=== PATIENT | male | born 1975 | race Caucasian/White ===

== ENCOUNTER 2019-05-19 15:16 | Outpatient (CLI) | payer BC, SELFPAY ==
--- NOTE | ~2019-05-19 | US_ITS ---
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 COMPARISON: Ultrasound dated 04/03/2006 FINDINGS: The right thyroid lobe measures 3.5 x 1.1 x 0.5 cm. The left thyroid lobe measures 2 x 1.3 x 1 cm. There is normal echotexture and echogenicity throughout the thyroid gland. No discrete nodul es identified. Normal vascular flow is present. IMPRESSION: 1. Atrophic thyroid gland. No discrete mass. Reviewed, dictated and finalized at location A. CIATE PROFESSOR OF COUNSELING
== END 2019-05-19 15:17 | disposition home or self-care (01) ==
LOC: ANHIMG 15:24
PROVIDERS: PCP Physician Assistant; Visit Provider Physician Assistant
DX: E03.9 Hypothyroidism, unspecified (principal)
CPT/HCPCS: 76536

== ENCOUNTER 2022-03-05 17:41 | Emergency (ER) | payer OTHER, SELFPAY ==
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
--- NOTE | ~2022-03-05 | XR_ITS ---
EXAMINATION: XR chest 2V Exam Date/Time: 03/05/2022 20:17 SHIRT CLEANER HISTORY: chest wall pain Comparison: 09/19/2017. RESULT: Lines, tubes, and devices: Cholecystectomy clips. Lungs and pleura: Clear. Cardiomediastinal silhouette: Stable. Other: No acute osseous or upper abdominal finding. IMPRESSION: No acute cardiopulmonary process. Reviewed, dictated and finalized at location K. T CLEANER
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
[2022-03-05 18:25] VITALS: BP 135/100; PULSE 106; RESP 16; TEMP 36.7; O2SAT 98
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
[2022-03-05] MEDS: KETOROLAC 30 MG/ML VIAL (*BKC) IM (21:22)
[2022-03-05] MEDS: CYCLOBENZAPRINE HCL 10 MG TABLET PO (21:23)
[2022-03-05] MEDS: HYDROcodone/acetaminophen (*CRX) 5-325 MG TABLET 1 TAB PO (21:23)
== END 2022-03-05 22:15 | disposition home or self-care (01) ==
PROVIDERS: Emergency Provider Emergency Medicine; PCP Physician Assistant
DX: S19.9XXA Unspecified injury of neck, initial encounter (principal); S89.92XA Unspecified injury of left lower leg, initial encounter; S89.91XA Unspecified injury of right lower leg, initial encounter; S49.92XA Unspecified injury of left shoulder and upper arm, initial encounter; V49.40XA Driver injured in collision with unspecified motor vehicles in traffic accident, initial encounter
CPT/HCPCS: 70450; 71046; 72125; 73030; 73564; 96372; 99284; A9270; J1885

== ENCOUNTER 2022-07-12 10:30 | Emergency (ER) | payer BC, SELFPAY ==
[2022-07-12 10:50] VITALS: BP 146/91; PULSE 82; RESP 18; TEMP 36.4; O2SAT 100
--- NOTE | 2022-07-12 10:55 | ECG_ITS ---
Measurements Intervals [place] Rate: 69 P: 46 GA: 171 QRS: 63 QRSD: 89 T: 33 QT: 383 QTc: 412 Interpretive Statements SINUS RHYTHM NONSPECIFIC T-WAVE ABNORMALITY BORDERLINE ECG NO PREVIOUS ECG AVAILABLE FOR COMPARISON Electronically Signed On 07-13-2022 16:19:58 CDT by Roscoe Zuniga M.D.
[2022-07-12 11:20] LABS: Basophils Absolute Auto 0.1 K/mm3 (0.0-0.1); Basophils Percent Auto 0.6 % (0.2-1.2); Eosinophils Absolute Auto 0.1 K/mm3 (0-0.3); Eosinophils Percent Auto 0.9 % (0-4.4); Hematocrit 45.4 % (42.0-52.0); Hemoglobin 15.8 g/dL (14.0-18.0); Immature Granulocyte Absolute 0.04 K/mm3 (0.00-0.031); Immature Granulocyte Percent A 0.5 % (0-0.5); Lymphocytes Absolute Auto 1.61 K/mm3 (0.9-3.2); Lymphocytes Percent Auto 18.6 % (18.3-44.2); Mean Corpuscular HGB Conc 34.8 g/dl (32-36); Mean Corpuscular Hemoglobin 30.8 pg (26-34); Mean Corpuscular Volume 88.5 fl (80-100); Mean Platelet Volume 9.4 fl (7.4-10.4); Monocytes Absolute Auto 0.5 K/mm3 (0.1-0.6); Monocytes Percent Auto 5.8 % (2.6-8.5); Neutrophils Absolute Auto 6.4 K/mm3 (1.3-6.7); Neutrophils Percent Auto 73.6 % (45.5-73.1); Platelet Count Result 213 k/mm3 (150-375); Red Blood Count 5.13 M/mm3 (4.6-6.20); Red Cell Distribution Width 12.8 % (11.5-14.5); White Blood Count 8.7 K/mm3 (4.5-10.0)
[2022-07-12 11:28] VITALS: BP 124/75; PULSE 78; RESP 22; O2SAT 100
[2022-07-12 11:36] LABS: Alanine Aminotransferase 41 U/L (6-50); Albumin Level 4.5 g/dL (3.5-5.1); Alkaline Phosphatase 58 U/L (38-126); Anion Gap 7 mmol/L (8-16); Aspartate Amino Transferase 32 U/L (17-59); Bilirubin,Total 0.8 mg/dL (0.2-1.3); Blood Urea Nitrogen 22 mg/dL (9-20); Calcium 8.7 mg/dL (8.4-10.2); Carbon Dioxide 24 mmol/L (22-30); Chloride 105 mmol/L (98-107); Estimated CRCL calculation 155 ml/min; Estimated Glomerular Filt Rate > 60; Glucose 130 mg/dL (65-110); Sodium 136 mmol/L (137-145)
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
[2022-07-12] MEDS: SODIUM CHLORIDE 0.9% IV 1,000 ML 999 ML IV CONT (12:48)
[2022-07-12 12:50] VITALS: BP 135/84; PULSE 75; RESP 18; O2SAT 100
[2022-07-12 13:31] VITALS: BP 131/74; PULSE 71
[2022-07-12 13:35] VITALS: BP 147/80; PULSE 84
[2022-07-12 13:36] VITALS: BP 167/93; PULSE 82
== END 2022-07-12 13:53 | disposition home or self-care (01) ==
PROVIDERS: Emergency Provider Emergency Medicine; PCP Physician Assistant; Referring Provider Family Medicine Sports Medicine
DX: R55 Syncope and collapse (principal); R94.31 Abnormal electrocardiogram [ECG] [EKG]
CPT/HCPCS: 36415; 80053; 85025; 93005; 96360; 99283; J7030

== ENCOUNTER 2023-12-05 14:32 | Emergency (ER) | payer BC, SELFPAY ==
[2023-12-05] VITALS (8 sets, daily range): BP systolic 103–149; BP diastolic 73–99; PULSE 83–114; RESP 16–21; TEMP 36.7; O2SAT 95–99
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
--- NOTE | 2023-12-05 15:43 | ED.GIBLEED ---
HPI - GI Bleed General Chief complaint: GI Bleed <Cirilo Gill PA-C - Last Filed: 12/05/23 15:53> Stated complaint: rectal bleeding <Cirilo Gill PA-C - Last Filed: 12/05/23 15:53> Time Seen by Provider: 12/05/23 15:43 <Cirilo Gill PA-C - Last Filed: 12/05/23 15:53> Focused HPI: 48-year-old male who presents to the ED for chief complaint of rectal bleeding intermittent over the last several months and worse in the past 1-2 days. Reports associated rectal pain. States he has been told he has hemorrhoids and anal fissure in the past. He reports a lot more bleeding than usual today while at work which is why he is here. He also reports some intermittent left-sided abdominal pains which is new as well. Denies fevers, chills, nausea, vomiting. GENERAL: Well-appearing, well-nourished, and in no acute distress. HEAD: Normocephalic, atraumatic. CHEST: Clear to auscultation. No respiratory distress. HEART: Regular rate and rhythm. ABD: Soft. Mild tenderness in the LUQ. NEURO: Alert and oriented x3. Patient screened in triage and initial orders placed. Additional care and disposition to be based upon diagnostic testing and treatment. <Cirilo Gill PA-C - Last Filed: 12/05/23 15:53> Source: patient <Teresita Grossman APRN - Last Filed: 12/05/23 18:57> Mode of arrival: ambulatory <Teresita Grossman APRN - Last Filed: 12/05/23 18:57> Limitations: no limitations <Teresita Grossman APRN - Last Filed: 12/05/23 18:57> History of Present Illness HPI Narrative: I agree with the note written above by Cirilo Braxton PA-C. Pt reports he has a history of non-fatty liver disease, HTN, hypothyroidism, and an anal fissure. Pt denies chest pain, shortness of breath, uncontrollable pain, inability to keep down food or drink, fevers, chills. <Teresita Grossman APRN - Last Filed: 12/05/23 18:57> MD complaint: blood on toilet paper and blood streaked stool <Teresita Grossman APRN - Last Filed: 12/05/23 18:57> Onset (ago): week(s) <Teresita Grossman APRN - Last Filed: 12/05/23 18:57> Pain Consistency: intermittent <Teresita Grossman APRN - Last Filed: 12/05/23 18:57> Related Data Home medications: Home Medications Medication Instructions Recorded Confirmed amlodipine 5 mg tablet 5 mg PO DAILY 11/01/22 04/12/23 ezetimibe 10 mg tablet 10 mg PO DAILY 11/01/22 04/12/23 fenofibric acid (choline) 135 mg 135 mg PO DAILY 11/01/22 04/12/23 capsule,delayed release levothyroxine 200 mcg tablet 200 mcg PO DAILY 11/01/22 04/12/23 levothyroxine 50 mcg tablet 50 mcg PO DAILY 11/01/22 04/12/23 losartan 100 1 tablet PO DAILY 11/01/22 04/12/23 mg-hydrochlorothiazide 12.5 mg tablet rosuvastatin 40 mg tablet 40 mg PO DAILY 11/01/22 04/12/23 testosterone cypionate 200 mg/mL 200 mg IM .Q2 Weeks 11/01/22 04/12/23 intramuscular oil (Depo-Testosterone) <Cirilo Gill PA-C - Last Filed: 12/05/23 15:53> Allergies/Adverse reactions: Allergies Allergy/AdvReac Type Severity Reaction Status Date / Time No Known Allergies Allergy Verified 12/05/23 18:23 <Cirilo Gill PA-C - Last Filed: 12/05/23 15:53> Review of Systems Review of Systems: All systems reviewed & are unremarkable except as noted in HPI and below <Teresita Grossman APRN - Last Filed: 12/05/23 18:57> PMFSH Past Medical History Medical History: Medical History Anxiety Hyperlipidemia Hypertension Kidney stones Thyroid disorder <BERLIN Coy Last Filed: 12/05/23 15:53> Surgical History Surgical History: Surgical History H/O carpal tunnel repair (~2006) History of cholecystectomy (~2008) History of hernia repair (~1978) bilateral inguinal hernia repair History of nasal septoplasty (~2006) Hx of tonsillectomy (~1981) S/P excision of vocal cord nodul
[2023-12-05 16:08] LABS: Basophils Percent Auto 0.5 % (0.2-1.2); Eosinophils Absolute Auto 0.1 K/mm3 (0-0.3); Eosinophils Percent Auto 1.4 % (0-4.4); Hemoglobin 14.7 g/dL (14.0-18.0); Immature Granulocyte Absolute 0.03 K/mm3 (0.00-0.031); Immature Granulocyte Percent A 0.4 % (0-0.5); Lymphocytes Absolute Auto 2.07 K/mm3 (0.9-3.2); Lymphocytes Percent Auto 24.7 % (18.3-44.2); Mean Corpuscular HGB Conc 35.9 g/dl (32-36); Mean Corpuscular Hemoglobin 30.4 pg (26-34); Mean Corpuscular Volume 84.9 fl (80-100); Mean Platelet Volume 9.1 fl (7.4-10.4); Monocytes Absolute Auto 0.9 K/mm3 (0.1-0.6); Monocytes Percent Auto 10.5 % (2.6-8.5); Neutrophils Absolute Auto 5.2 K/mm3 (1.3-6.7); Neutrophils Percent Auto 62.5 % (45.5-73.1); Platelet Count Result 252 k/mm3 (150-375); Red Blood Count 4.83 M/mm3 (4.6-6.20); Red Cell Distribution Width 13.1 % (11.5-14.5); White Blood Count 8.4 K/mm3 (4.5-10.0)
[2023-12-05 16:19] LABS: Partial Thromboplastin Time 32.3 Seconds (22.3-36.8); Prothrombin Time 13.9 Seconds (11.1-14.7)
[2023-12-05 16:21] LABS: Lactic Acid Reflex 1.4 mmol/L (0.7-2.0)
[2023-12-05 16:22] LABS: Alanine Aminotransferase 54 U/L (6-50); Albumin Level 4.8 g/dL (3.5-5.1); Alkaline Phosphatase 60 U/L (38-126); Anion Gap 13 mmol/L (4-12); Aspartate Amino Transferase 51 U/L (17-59); Blood Urea Nitrogen 18 mg/dL (9-20); Calcium 9.8 mg/dL (8.4-10.2); Carbon Dioxide 26 mmol/L (22-30); Chloride 102 mmol/L (98-107); Estimated CRCL calculation 137 ml/min; Estimated Glomerular Filt Rate > 60; Glucose 108 mg/dL (65-110); Lipase 52 U/L (23-300); Potassium 3.7 mmol/L (3.4-5.0); Sodium 141 mmol/L (137-145)
== END 2023-12-05 18:50 | disposition home or self-care (01) ==
PROVIDERS: Physician Assistant; Emergency Provider Registered Nurse; PCP Physician Assistant
DX: K64.8 Other hemorrhoids (principal); K76.0 Fatty (change of) liver, not elsewhere classified; I10 Essential (primary) hypertension; E78.5 Hyperlipidemia, unspecified; F41.9 Anxiety disorder, unspecified; E07.9 Disorder of thyroid, unspecified; Z87.891 Personal history of nicotine dependence
CPT/HCPCS: 36415; 74177; 80053; 83605; 83690; 85025; 85610; 85730; 86850; 86900; 86901; 99284; Q9967

== ENCOUNTER 2024-01-14 15:56 | Outpatient (CLI) | payer BC, SELFPAY ==
--- NOTE | ~2024-01-14 | US_ITS ---
EXAMINATION: US renal BI DATE: 01/14/2024 17:09 INDICATION: Right flank pain. Abdominal pain. TECHNIQUE: Multiple ultrasound grayscale images of the kidneys were obtained. COMPARISON: CT abdomen and pelvis 12/05/2023 FINDINGS: The right kidney measures 12.3 x 6.0 x 6.6 cm. The left kidney measures 12.5 x 5.9 x 5.7 cm. The kidn eys demonstrate normal parenchymal echogenicity. There is no hydronephrosis. The bladder is normal. T here is diffuse hepatic steatosis. IMPRESSION: 1. Normal kidneys. No hydronephrosis. 2. Diffuse hepatic steatosis. Reviewed, dictated and finalized at location A.
--- NOTE | ~2024-01-14 | CT_ITS ---
EXAMINATION:CT diagnostic chest wo con DATE: 01/14/2024 16:19 INDICATION: Solitary pulmonary nodule. TECHNIQUE: Computed tomography (CT) of the chest was performed without intravenous contrast. Automate d exposure control and iterative reconstruction technique were employed. The dose-length product (DLP ) was 549.48 mGy-cm. COMPARISON: CT abdomen and pelvis 12/05/2023, 10/15/2017 FINDINGS: There is a 7 mm nodule in right lower lobe. There is a 5 mm nodule at left major fissure. N o pleural effusion. The heart size is normal. There are coronary artery calcifications. No pericardia l effusion. There is diffuse hepatic steatosis. There are changes of cholecystectomy. There is mild t horacic spondylosis. IMPRESSION: 1. 7 mm right lower lobe pulmonary nodule, new from 10/15/17, probably benign. Noncontrast low-dose ch est CT is recommended in 6 months. Reviewed, dictated and finalized at location A. IMPRESSION: 1. 7 mm right lower lobe pulmonary nodule, new from 10/15/17, probably benign. N oncontrast low-dose chest CT is recommended in 6 months.
== END 2024-01-14 15:57 | disposition home or self-care (01) ==
PROVIDERS: PCP Physician Assistant; Visit Provider Physician Assistant
DX: K76.0 Fatty (change of) liver, not elsewhere classified (principal); R91.1 Solitary pulmonary nodule; R10.9 Unspecified abdominal pain
CPT/HCPCS: 71250; 76775

== ENCOUNTER 2024-01-15 12:58 | Outpatient (CLI) | payer BC, SELFPAY | END 2024-01-15 12:59 | disposition home or self-care (01) | LOC: ANHAUDASC 12:59 | PROVIDERS: PCP Physician Assistant; Visit Provider Physician Assistant | DX: H90.3 Sensorineural hearing loss, bilateral (principal) | CPT/HCPCS: 92557; 92567 ==

== ENCOUNTER 2024-07-11 07:46 | Outpatient (CLI) | payer BC, SELFPAY ==
--- NOTE | ~2024-07-11 | CT_ITS ---
CT Scan of the Chest without Contrast: Clinical Indication: Lung nodule Technique: Contiguous sections were acquired throughout the chest without intravenous contrast. Dose reduction technique was used on this scan by utilizing automated exposure control and iterative recon struction technique. The dose-length product (DLP) was 689.23 mGy-cm. COMPARISON: 01/14/2024 Findings: There is no evidence of any significant mediastinal, hilar or axillary lymphadenopathy. The mediastin al soft tissues appear normal. There is no evidence of pleural or pericardial effusion. Stable 6 mm right basilar pulmonary nodule (axial image 103). Images through the upper abdomen reveal no abnormalities. Impression: Stable 6 mm right basilar pulmonary nodule, as above. Reviewed, dictated and finalized at location . Impression: Stable 6 mm right basilar pulmonary nodule, as above.
--- OUTSIDE RECORDS SUMMARY | 2024-07-11 07:49 | XMS_ITS | Data Portability ---
Author Organization [facility]OUR[facility] Gurpreet CORREIA Address [address] [place] [address] Care Team Providers Care Intervention Specialist Name Role Phone MARIA R ANDERSON Primary Care Provider Unavailab le Assessment Encounter Date Assessment Date Assessment LastModified by Organization Details LastModified Time 06/19/2024 06/19/2024 Colonoscopy completed on April 27 showed, 2 - 9 mm polyps in the descending and transverse colon that were removed polyp in the sigmoid colon removed diverticulosis and internal and external hemorrhoids. repeat colonoscopy in 3 years. Not available 06/19/2024 17:22:04 Plan of Treatment Reminders Order Date Submit Date Provider Last Modified By Organization Details Last Modified Time Details Appointments ANY 15 2024 03:15P YAYA Valdez Not available Not available Not available Lab HbA1c (hemo globi n A1c), blood 2024 025 [email or web address], [address], [place], [address], 07/07/2024 13:17:46 CBC w/ auto diff 2024 025 [employer] [facility], [address], [place], [address], 07/07/2024 13:17:55 CMP, serum or plasm a 2024 025 [employer] [facility], [address], [place], [address], 07/07/2024 13:17:35 testo stero ne, free + total , serum 2024 025 [facility], [address], [place], [address], 06/29/2024 10:42:07 PSA, serum or plasm a 2024 025 [facility], [address], [place], [address], 06/29/2024 10:42:07 lipid panel , serum 2024 025 [employer] [facility], [address], [place], [address], 07/07/2024 13:17:21 TSH + free T4, serum 2024 025 [facility] [employer] [facility], [address], [place], [address], 07/07/2024 13:17:11 HbA1c (hemo globi n A1c), blood 2023 024 [employer] [facility], [address], [place], [address], 01/02/2024 12:37:43 testo stero ne, free + total , serum 2023 024 [facility], [address], [place], [address], 01/07/2024 14:45:14 PSA, serum or plasm a 2023 024 [employer] [facility], [address], [place], [address], 01/02/2024 12:38:15 CBC w/ auto diff 2023 024 [facility] [employer] [facility], [address], [place], [address], 01/02/2024 12:37:57 CMP, serum or plasm a 2023 024 [facility] [employer] [facility], [address], [place], [address], 01/02/2024 12:37:33 lipid panel , serum 2023 024 [employer], [address], [place], [address], 01/02/2024 12:38:33 TSH + free T4, serum 2023 024 [facility] [employer], [address], [place], [address], 01/02/2024 12:37:18 HbA1c (hemo globi n A1c), blood 2023 024 [employer] [facility], [address], [place], [address], 06/26/2023 09:08:17 CBC w/ auto diff 2023 024 [email or web address] [employer], [address], [place], [address], 07/04/2023 16:50:20 CMP, serum or plasm a 2023 024 [email or web address] [employer], [address], [place], [address], 07/04/2023 16:50:20 vitam in B12 + folat e, serum or blood 2023 024 [email or web address] [employer], [address], [place], [address], 07/04/2023 16:50:20 testo stero ne, free + total , serum 2023 024 [email or web address], [address], [place], [address], 07/04/2023 16:50:20 PSA, serum or plasm a 2023 024 [email or web address] [facility], [address], [place], [address], 07/04/2023 16:50:20 lipid panel , serum 2023 024 [email or web address], [address], [place], [address], 07/04/2023 16:50:20 TSH + free T4, serum 2023 024 [employer] [facility], [address], [place], [address], 07/04/2023 16:50:20 Referral audio logis t refer ral 2023 024 [facility] (Audiology), [address], [place], [address], 01/15/2024 15:09:34 derma tolog ist refer ral - left cheek pale irreg ular lesio n, and left upper chest lesio n. 2023 024 [email or web address] Kaye MD (Dermatology), [address], [address], [place], [address], 01/07/2024 12:25:58 Procedures colon oscop y scree palak (PROC ) 2023 024 [facility] [place], [address], [place], [address], 09/13/2023 07:57:34 Surgeries None recor ded. Imaging US, forea rm [address] (Imaging), [address] [place] [address], [address], 06/25/2024 15:37:35 CT, chest , w/o contr ast 2024 025 [facility] (Imaging), [address] [place] [address], [address], 07/03/2024 18:45:28 US, kidne y 2023 024 [facility] (Imaging), [address] [place] [address], [address], 01/16/2024 11:01:35 CT, chest , w/o contr ast 2023 024 [facility] (Imaging), [address] [place] [address], [address], 01/27/2024 15:36:52 Medication Orders testo stero ne cypio elinor 200 mg/mL intra muscu lar oil 2023 024 [id number], [address] [facility], [place], [id number], 06/10/2023 17:52:42 Wegov y 0.25 mg/0. 5 mL subcu taneo us pen injec tor 2023 024 [place] [facility], [address] [facility], [place], [address], 12/19/2023 15:26:07 Patient TargetsNo targets recorded. 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 [email or web address] Not Available 07/21 10:55:19 12/05/19 24 12/05/2023 CT, abdom en + pelvi s, w/ contr ast No observ ation record ed. [email or web address] [address], [address], 12/06/2023 09:42:11 01/15/20 24 01/14/2024 US, kidne y No observ ation record ed. [facility] (Imaging) [address] [place] [address], [address], 01/27/2024 17:45:27 05/07/19 25 04/27/2024 colon oscop y scree palak (PROC ) No observ ation record ed. [email or web address] [facility] [address], [place], [address], 05/08/2024 00:45:44 Result Notes None recorded. Problems Name Problem SNOMED Code Status Onset Date Resolution Date Notes Provider Name and Address Organization Details Recorded Time Body mass index 40+ - severely obese 270624240 Active 2023 Karon Lozano MA [facility], [place] - [facility] 15:13:53 Long-term drug therapy Active 2023 YAYA Trujillo Attn: Accountin g,[address] [facility], [place], [address], [place] [facility] 4 15:26:53 Obesity 382773270 Active 2023 YAYA Trujillo Attn: Accountin g,[address] [facility], [place], [address], [place] [facility] 4 15:26:55 Male hypogonadis m 18931180 Active 2023 YAYA Trujillo Attn: Accountin g,[address] [facility], [place], [address], [place] [facility] 4 15:27:02 Prediabetes 035773773 Active 2023 YAYA Trujillo Attn: Accountin g,[address] [facility], [place], [address], [place] [facility] 4 15:27:04 Hyperlipide maurizio 32263923 Active 2023 YAYA Trujillo Attn: Accountin g,[address] [facility], [place], [address], [place] [facility] 4 15:27:07 Hypothyroid ism 59480732 Active 2023 YAYA Trujillo Attn: Accountin g,[address] [facility], [place], [address], [place] [facility] 4 15:27:08 Nodule of lung 301386221 Active 2023 YAYA Trujillo Attn: Accountin g,[address] [facility], [place], [address], [place] [facility] 4 15:27:10 Benign essential hypertensio n 8890611 Active 2023 YAYA Trujillo Attn: Accountin g,[address] [facility], [place], [address], [place] [facility] 4 15:27:12 Decreased hearing 772236206 Active 2023 YAYA Trujillo Attn: Val mckeon,[address] [facility], [place], [address], [facility] - SI 10:25:15 Positive screening for depression on PHQ-9 (Patient Health Questionnai re 9) 6606872790927 00 Active 2024 YAYA Trujillo Attn: Val mckeon,[address] [facility], [place], [address], [facility] - [facility] 5 22:06:35 Body mass index 30+ - obesity 356385655 Active 2024 YAYA Trujillo Attn: Val mckeon,[address] [facility], [place], [address], [facility] - [facility] 5 22:06:43 Problem Notes None recorded. Procedures Surgical History Date Name Laterality Status Provider Name and Address Organization Details Recorded Time Hernia Repair completed Audrey Rey MA [facility] 06/10/2023 17:25:41 Carpal tunnel surgery completed Audrey Rey MA [facility] 06/10/2023 17:25:50 cholecystectomy completed Audrey weston MA [facility] 06/10/2023 17:25:58 Imaging Results Imaging Date Name Status LastModified by Organization Details LastModified Time 06/25/2023 XR, ribs, bilateral completed [email or web address] Information not available 07/22/2023 10:55:19 12/05/2023 CT, abdomen + pelvis, w/ contrast completed [address], [address], 12/06/2023 09:42:11 01/14/2024 US, kidney completed [facility] (Imaging) [address] [place] [address], [address], 01/27/2024 17:45:27 04/27/2024 colonoscopy screening (PROC) completed [address] [facility] [address], [place], [address], 05/08/2024 00:45:44 Procedure Notes None recorded. Medical Equipment None Reported. Allergies No known drug allergies Medications Name Sig Start Date Stop Date Status Note LastModified by Organization Details LastModified Time status covid-19/fl u a&b antigen tst TEST DIRECTED 06/09 completed Not Available Not Available Not Available promethazin e-DM 6.25 mg-15 mg/5 mL oral syrup TAKE 5 ML BY MOUTH EVERY 6 HOURS FOR 7 DAYS NEEDED 06/09 completed Not Available Not Available Not Available clindamycin HCl 300 mg capsule TAKE 1 CAPSULE BY MOUTH FOUR TIMES DAILY 12/18 completed Not Available Not Available Not Available triazolam 0.25 mg tablet TAKE 1 TABLET BY MOUTH 1 HOUR BEFORE APPOINTME NT active Not Available Not Available No t Available cetirizine 10 mg tablet TAKE 1 TABLET BY MOUTH ONCE A DAY active Not Available Not Available No t Available azithromyci n 250 mg tablet TAKE 2 TABLETS BY MOUTH FOR 1 DAY THEN TAKE 1 TABLET BY MOUTH DAILY FOR 4 DAYS 06/09 completed Not Available Not Available Not Available ofloxacin 0.3 % eye drops INSTILL 1 DROP INTO LEFT EYE THREE TIMES DAILY FOR 3 DAYS 06/09 completed Not Available Not Available Not Available citalopram 10 mg tablet TAKE 1 TABLET BY MOUTH EVERY DAY IN THE EVENING FOR ANXIETY 06/19 completed Not Available Not Available Not Available Synthroid 200 mcg tablet TAKE 1 TABLET DAILY WITH 50 MCG TABLET TO EQUAL 250 MCG DAILY active Not Available Not Available No t Available prednisone 20 mg tablet TAKE 2 TABLETS BY MOUTH EVERY DAY FOR 5 DAYS 06/09 completed Not Available Not Available Not Available Anucort-HC 25 mg suppository UNWRAP AND INSERT 1 SUPPOSITO RY RECTALLY TWICE DAILY FOR HEMORRHOI DS active Not Available Not Available No t Available amlodipine 5 mg tablet active Not Available Not Available Not Available terbinafine HCl 250 mg tablet 06/09 completed Not Available Not Available Not Available alprazolam 0.5 mg tablet active Not Available Not Available Not Available methocarbam ol 750 mg tablet TAKE 1 TABLET BY MOUTH THREE TIMES DAILY NEEDED active Not Available Not Available No t Available baclofen 10 mg tablet TAKE 1 TABLET BY MOUTH THREE TIMES DAILY NEEDED 06/09 completed Not Available Not Available Not Available hydrocodone 7.5 mg-acetamin ophen 325 mg tablet TAKE 1 TABLET BY MOUTH EVERY 8 HOURS NEEDED 06/09 completed Not Available Not Available Not Available promethazin e 25 mg tablet TAKE 1 TABLET BY MOUTH THREE TIMES DAILY FOR 5 DAYS NEEDED 06/09 completed Not Available Not Available Not Available BD Luer-Reinier Syringe 3 mL 25 gauge x 1 active Not Available Not Available Not Available Synthroid 50 mcg tablet TAKE 1 TABLET DAILY WITH 200 MCG DOSE active Not Available Not Available No t Available testosteron e cypionate 200 mg/mL intramuscul ar oil 1 ml injection as directed every 2 weeks active Not Available Not Available No t Available methylpredn isolone 4 mg tablets in a dose pack FOLLOW PACKAGE DIRECTION S 12/18 completed Not Available Not Available Not Available amoxicillin 875 mg-potassiu m clavulanate 125 mg tablet TAKE 1 TABLET BY MOUTH EVERY 12 HOURS 06/19 completed Not Available Not Available Not Available ezetimibe 10 mg tablet active Not Available Not Available Not Available rosuvastati n 40 mg tablet TAKE 1 TABLET DAILY active Not Available Not Available No t Available losartan 100 mg-hydrochl orothiazide 12.5 mg tablet one tab po daily active Not Available Not Available No t Available fenofibric acid (choline) 135 mg capsule,del ayed release Take 1 capsule every day by oral route. 2024 active Not Available Not Available Not Avai lable Wegovy 0.25 mg/0.5 mL subcutaneou s pen injector Inject 0.25 mg every week by subcutane ous route as directed. 12/18 completed Not Available Not Available Not Available Paxlovid 150 mg-100 mg tablets in a dose pack (Renal Dose) TK 1 NIRMATREL VIR T AND 1 RITONAVIR T TOGETHER PO BID FOR 5 DAYS 06/09 completed Not Available Not Available Not Available Vitals Date Recorded Body weight Heart rate Oxygen saturation Oxygen saturation in Arterial blood by Pulse oximetry Body mass index (BMI) Body height Systolic blood pressure Diastolic blood pressure Provider Name and Address Organization Details Last Updated DateTime 4 707028. 3 g 81 /min 98 % 98 % 43.2 kg/m2 177.8 cm 128 mm[Hg] 80 mm[Hg] Audrey Rey, MA [facility] 4 17:24:23 Date Recorded Systolic blood pressure Diastolic blood pressure Provider Name and Address Organization Details Last Updated DateTime 06/10/2023 124 mm[Hg] 80 mm[Hg] YAYA Trujillo Attn: Accounting,[address] [place], [address], [facility] 06/10/2023 17:51:19 Date Recorded Body height Body mass index (BMI) Body weight Respiratory rate Provider Name and Address Organization Details Last Updated DateTime 12/19/2023 177.8 cm 42.2 kg/m2 671811.3 g 18 /min Karon Lozano MA [facility] 12/19/2023 15:13:34 Date Recorded Heart rate Oxygen saturation Oxygen saturation in Arterial blood by Pulse oximetry Systolic blood pressure Diastolic blood pressure Provider Name and Address Organization Details Last Updated DateTime 80 /min 98 % 98 % 140 mm[Hg] 72 mm[Hg] YAYA Trujillo Attn: Accountin g,[address] [place], [address], [facility] 4 15:36:16 Date Recorded Body height Body mass index (BMI) Body weight Heart rate Oxygen saturation Oxygen saturation in Arterial blood by Pulse oximetry Systolic blood pressure Diastolic blood pressure Provider Name and Address Organization Details Last Updated DateTime 5 177.8 cm 37.9 kg/m2 465663. 82 g 89 /min 98 % 98 % 138 mm[Hg] 78 mm[Hg] Al Washington MA [facility] 5 17:11:44 Date Recorded Respiratory rate Systolic blood pressure Diastolic blood pressure Provider Name and Address Organization Details Last Updated DateTime 06/19/2024 16 /min 140 mm[Hg] 80 mm[Hg] YAYA Trujillo Attn: Accounting, [address] [place], [address], [facility] 06/19/2024 17:33:37 Social History Question Answer Notes LastModified by Organizat ion Details LastModified Time Tobacco Smoking Status Never Smoker Audrey Rey MA null, [facility] 06/10/2023 17:25:33 What Is Your Level Of Alcohol Consumption? Moderate [place]asta And Coke Information not available 12/19/2023 Are You Blind Or Do You Have Difficulty Seeing? No Information not available 12/19/2023 What Is Your Level Of Caffeine Consumption? Occasional Crystal Light And Information not available 12/19/2023 In The 14 Days Before Symptom Onset, Have You Had Close Contact With A Laboratory-confir med COVID-19 While That Case Was Ill? No Information not available 12/19/2023 In The 14 Days Before Symptom Onset, Have You Had Close Contact With A Person Who Is Under Investigation For COVID-19 While That Person Was Ill? No Information not available 12/19/2023 Have You Been To An Area Known To Be High Risk For COVID-19? No Information not available 12/19/2023 Are You Deaf Or Do You Have Serious Difficulty Hearing? Yes Information not available 12/19/2023 What Type Of Diet Are You Following? REGULAR Information not available 12/19/2023 Are There Any Guns Present In Your Home? No Information not available 12/19/2023 What Was The Date Of Your Most Recent Tobacco Screening? 06/19/2024 [email or web address] Information not available 06/19/2024 What Is Your Relationship Status? Information not available 12/19/2023 Do You Use Your Seat Belt Or Car Seat Routinely? Yes Information not available 12/19/2023 Do You Have Smoke And Carbon Monoxide Detectors In Your Home? Yes Information not available 12/19/2023 Do You Use Any Illicit Or Recreational Drugs? No Information not available 12/19/2023 Do You Use Sunscreen Routinely? No Information not available 12/19/2023 Has Tobacco Cessation Counseling Been Provided? No Information not available 06/10/2023 Do You Or Have You Ever Used Any Other Forms Of Tobacco Or Nicotine? No Information not available 06/10/2023 Sex: Male Functional Status Question Answer Note LastModified by Organizat ion Details LastModified Time Are you able to care for yourself? Yes Information not available 12/19/2023 What is your exercise level? Occasional Information not available 12/19/2023 Mental Status None recorded. Family History Relationship Description Onset Age of this Age Resolved Age Notes LastModified by Organization Details LastModified Time Father Hypertensive disorder [email or web address] Not available 2023 17:25:01 Mother Hypertensive disorder [email or web address] Not available 2023 17:25:01 Mother Disorder of thyroid gland [email or web address] Not available 2023 17:25:15 Medical History Condition Response Thyroid Problems Y Past Encounters Encounter ID Performer Location Encounter Start Date Encounter Closed Date Diagnosis/Indication Diagnosis SNOMED-CT Code Diagnosis ICD10 Code Diagnosis Note [id number] YAYA Trujillo [facility] [address] [place] [address] 06/10/2023 16:59:17 06/10/2023 17:57:42 Benign essential hypertension 1891344 I10 stable on amlodipine 5mg and losartan hctz 100/12.5mg daily. Hyperlipidemia 77554065 E78.5 on multiple agents for lipid management . due for fasting lab panel. Hypothyroidism 69153507 E03.9 pt is on high dose synthroid supplement . due for updated labs Long-term drug therapy 701057002 Z79.899 routine cbc, cmp, b12 and folate due Male hypogonadism 656462 06 E29.1 Testostero ne labs plus PSA due. refill on testostero ne supplement . Prediabetes 368532969 R7 3.03 underlying prediabete s present. due for A1c lab Screening for malignant neoplasm of colon 489610950 Z12.11 pt is due for colonoscop y screening Adult heal th examination 076618410 Z00.01 annual wellness appt completed Body mass index 40+ - severely obese 642447596 Z68.41 start wegovy 0.25mg weekly therapy if insurance will authorize for BMI of 43.2 with multiple comorbidit ies. [id number] YAYA Trujillo [facility] [place] [address] [place] [address] 12/19/2023 14:56:57 12/19/2023 15:48:09 Body mass index 40+ - severely obese 284494311 Z68.41 BMI is 42.2 Obesity 376472615 E66.8 discussed healthy diet, exercise, controllin g carbohydra sid and added sugars in the diet Nodule of lung 049820114 R91.1 one 6mm nodule incidental ly picked up on lower lobe right side on CT a/p. will f/u with dedicated chest CT w/o contrast. Skin lesion 26219947 L98 .9 Refer to dermatolog y for lesion removal on face on left side abnormal macular lesion small in size Benign ess ential hypertension 3978339 I10 stable on amlodipine 5mg and losartan hctz 100/12.5mg daily. Hyperlipidemia 60306828 E78.5 on multiple agents for lipid management . Due for fasting lipids Hypothyroidism 36205002 E03.9 pt is on high dose synthroid supplement . due for updated labs Prediabetes 161231348 R7 3.03 underlying prediabete s present. 6.3% last labs, due for updated A1c Male hypogonadism 626009 06 E29.1 Testostero ne labs plus PSA due. Long-term drug therapy 658076694 Z79.899 Routine CBC and CMP are due Occult blo od detected in feces 84528805 R19.5 Patient has plans to see GI and colonoscop y orders have already been placed and he is to schedule. We do have the option of changing this to a diagnostic colonoscop y which would go towards his deductible but would get him in sooner for evaluation . Patient would like to consider this option and will reach back out to the office to let us know but he does not want us to order it yet. Right flank pain 3877023 09 R10.9 Check ultrasound of the kidneys with right flank pain Decreased hearing 911372 001 H91.93 Refer to audiology for hearing evaluation [id number] YAYA Trujillo [facility] [place] [address] [place] [address] 06/19/2024 16:20:16 06/25/2024 15:37:34 Positive screening for depression on PHQ-9 (Patient Health Questionnaire 9) 5423315899 26548 Z13.31 Patient scored a 5 on screening today and a lot of this is related to some current marital problems that he is experienci ng Body mass index 30+ - obesity 995517822 Z68.37 BMI 37.9 Obesity 040022968 E66.9 discussed healthy diet, exercise, controllin g carbohydra sid and added sugars in the diet Benign ess ential hypertension 0175699 I10 Blood pressure is 140/80, borderline stability on amlodipine 5mg and losartan hctz 100/12.5mg daily. Patient is feeling a bit emotionall y stressed today and during exam Nodule of lung 544438149 R91.1 one 6mm nodule incidental ly picked up on lower lobe right side on CT a/p. will f/u with dedicated chest CT w/o contrast. Hypothyroidism 30870674 E03.9 pt is on high dose synthroid supplement . due for updated labs Hyperlipidemia 43231170 E78.5 on multiple agents for lipid management . Due for fasting lipids Prediabetes 747140154 R7 3.03 underlying prediabete s present. 6.3% last labs, due for updated A1c Male hypogonadism 682993 06 E29.1 Testostero ne labs plus PSA due. Long-term drug therapy 362531739 Z79.899 Routine CBC and CMP are due Adult heal th examination 555274868 Z00.01 annual wellness appt completed Mass of adam bcutaneous tissue of right forearm 2121652953 1028373 R22.31 Check ultrasound of the right forearm for a soft tissue lipoma like nodule Health Concerns Section Related Observation LastModified by Organization Detai ls LastModified Time None Recorded Concern Status LastModified by Organization Details LastModified Time None Recorded Advance Directives Directive None Recorded Payers Encounter Date Sequence Insurance Name Policy Number Policy Horne Covered Member ID Horne Member ID Guarantor Name 06/10/2023 1 [place] [id number] Prosper Hernandez [id number] Prosper Hernandez Jr 12/19/2023 1 [place] [id number] Prosper Hernandez [id number] Prosper Hernandez Jr 06/19/2024 1 [place]: ([place]) [id number] Prosper Hernandez [id number] Prosper Hernandez Jr Notes Date Note Type Note Provider Name and Address Organization Details Recorded Time 4 text/html Generic HPI TemplateReported bypatient.Notes:pt is taking testosterone 200mg every 2 weeks.HyperlipidemiaRepor jai bypatient.Notes:pt is stable on rosuvastatin 40mg, zetia 10mg daily and fenofibric acid 135mg daily.HypertensionReporte d bypatient.Notes:stable on losartan hctz 100/12.5mg daily and amlodipine 5mg dailyThyroidReported bypatient.Notes:pt is stable on synthroid 225mcg daily. due for labs Obesity: patient would like to start injectable wegovy therapy. YAYA Trujillo Attn: Accounting,[address], [place], [address], [facility] 06/30/2023 12:48:06 4 text/html Generic HPI TemplateReported bypatient.Notes:pt is taking testosterone 200mg every 2 weeks.HyperlipidemiaRepor jai bypatient.Notes:pt is stable on rosuvastatin 40mg, zetia 10mg daily and fenofibric acid 135mg daily.HypertensionReporte d bypatient.Notes:stable on losartan hctz 100/12.5mg daily and amlodipine 5mg dailyThyroidReported bypatient.Notes:pt is stable on synthroid 225mcg daily. due for labs ER follow-up, patient states that he was having some rectal bleeding states that he hasn't been bleeding since then just would like to f/u with that. States that he would like to try the medication prescribed and then give us an update.would like to discuss left spot on his face states that it itches as well states that he has a left are freckle also on his arm he would like to have you look at. States that he would like to discuss kidney Patient has decreased hearing and would like to have hearing evaluationObesity: patient would like to start injectable wegovy therapy. YAYA Trujillo Attn: Accounting,[address], [place], [address], [facility] [place] [place] 12/30/2023 10:26:43 5 text/html Generic HPI TemplateReported bypatient.Notes:pt is taking testosterone 200mg every 2 weeks.HyperlipidemiaRepor jai bypatient.Notes:pt is stable on rosuvastatin 40mg, zetia 10mg daily and fenofibric acid 135mg daily.HypertensionReporte d bypatient.Notes:stable on losartan hctz 100/12.5mg daily and amlodipine 5mg dailyThyroidReported bypatient.Notes:pt is stable on synthroid 225mcg daily. due for labs YAYA Trujillo Attn: Accounting,[address], [place], [address], [place] - [facility] 07/04/2024 22:07:57
--- OUTSIDE RECORDS SUMMARY | 2024-07-11 07:50 | XMS_ITS | Continuity of Care Document ---
Author Organization [facility] Address [address] [place] [address] Phone Care Team Providers Care Rn Surgical Name Role Phone Jaiden DE LUNA, Curt Unavailable Unavai lable Allergies, Adverse Reactions, Alerts Substance Reaction Status Criticality No Known Drug Allergies Active No I nformation Medications Medication Instructions Dosage Effective Dates (start - stop) Status Comments losartan 25 mg tablet take 1 tablet by o ral route every day 25 MG - Active fenofibric acid 35 mg tablet take 1 tablet by oral route every day 35 MG - Active rosuvastatin 5 mg tablet take 1 tablet by oral route every day 5 MG - Active amlodipine 2.5 mg tablet take 1 tablet by oral route every day 2.5 MG - Active ezetimibe 10 mg tablet take 1 tablet by oral route every day 10 MG - Active Synthroid 25 mcg tablet take 1 tablet by oral route every day 25 MCG - Active Depo-Testosterone 100 mg/mL intramuscular oil inject 0.5 milliliter by intramuscular route every 4 weeks 50 MG - Active Procedures Procedure Date X-ray exam Cervical 4 Or 5 Views 2022 Independent Medical Examination CHIKIS X-ray exam shoulder complete, minimum 2 views Independent Medical Examination CHIKIS X-ray exam shoulder complete, minimum 2 views Independent Medical Examination [facility] Pre Payment Advance Directives Directive Yes / No Effective Date File Name No Information Encounters Encounter Description Practice Location Reason(s) For Visit Diagnoses Date Provider Providers Copied on Encounter [facility], [address] [address], [place], [place], [id number], [place] tel:[phone] [facility] No Information 3 O'Rodolfo Philippeoph er. [address] [facility] [address] [address], [place], [place], [id number] , [place]. tel: [phone] Independent Medical Examination [facility], [address] [address], [place], [place], [id number], [place] tel:[phone] [facility] Cervical (chief complaint) Cervicalgia 3 O'Rodolfo Philippeoph er. [address] [address], [place], [place], [id number] , [place]. tel: [phone] Independent Medical Examination [facility], [address], [id number], [place] tel:[phone] [facility] left shoulder (chief complaint) Pain in left shoulder 2 Frantz Villeda. [address], [id number] , [place]. tel: [phone] Independent Medical Examination [facility], [address] [address], [place], [place], [id number], [place] tel:[phone] [facility] left shoulder (chief complaint) Pain in left shoulder 1 Frantz Villeda. [address] [address], [place], [place], [id number] , [place]. tel: [phone] [facility], [address], [id number], [place] tel:[phone] [facility] No Information 1 Frnatz Villeda. [address], [id number] , [place]. tel: [phone] Family History Family Member Type Diagnosis Age At Onset Problem Family history of Blood diso rder Problem Family history of stomach ca ncer Sister Problem (finding) Hypertension Problem Family history o f malignant neoplasm of lung Problem Family history of cancer of colon Problem Family history of alcoholism Problem Family history of seizure di sorder Problem Family history of Renal dise ase Father Problem (finding) Cancer, unknown Problem Family history of Arthritis Problem Family history of stroke Problem Family history of Cardiovasc ular disease Father Problem (finding) Hypertension Problem Family history of Diabetes m ellitus Problem Family history o f malignant neoplasm of pharynx Problem Family history of hypertensi on Sister Problem (finding) Diabetes Payers Payer name Insurance type Covered republican ID Authoriza tion(s) Yessi Persaud [id number] Social History Type Description Quantity Date Captured Comments Alcohol Use Details Unknown Caffeine Use Details Unknown Tobacco Use Status No Information Smoking Status No Information Sex Male Chief Complaint And Reason For Visit No Information Reason For Referral Reason For Referral No Information Plan Of Treatment Date Type Action Status Referral Ordered: X-ray exam Cervical 4 Or 5 Views spine, cervical ordered Referral Ordered: X-ray exam shoulder complete, minimum 2 views LT ordered History Of Present Illness Encounter Date Complaint History Of Prese nt Illness Cervical Prosper comes into the office for an CHIKIS. left shoulder Prosper presents t o the office for left shoulder complaints. left shoulder Prosper presents t o the office for left shoulder complaints. Functional Status Date Functional Assessmen t No Information Instructions Date Instruction Additional Infor mation No Information Assessments Type Assessment Date No Information Patient Care Teams Name Effective Dates (start - stop) Status Members No Information
--- OUTSIDE RECORDS SUMMARY | 2024-07-11 07:50 | XMS_ITS | Clinical Summary ---
Author Organization [facility] Address [address] [place] [address] Care Team Providers Care Rn Neonatal Name Role Phone Alfredo Jung MD Unavailable [phone] Darinel Cano MD Unavailable [phone] Maria R Anderson Primary [facility] Pr ovider Allergies No known active allergies Medications losartan-hydroC HLOROthiazide (HYZAAR) 100-12.5 mg per tablet Take 1 tablet by mouth daily 4 Active fenofibrate choline (TRILIPIX) 135 mg capsule Take 1 capsule (135 mg total) by mouth daily 4 Active rosuvastatin (CRESTOR) 40 mg tablet Take 1 tablet (40 mg total) by mouth daily 4 Active amLODIPine (NORVASC) 5 mg tablet Take 1 tablet (5 mg total) by mouth daily 4 Active ezetimibe (ZETIA) 10 mg tablet Take 1 tablet (10 mg total) by mouth daily 3 Active Synthroid 200 mcg tablet Take 1 tablet (200 mcg total) by mouth daily 3 Active Synthroid 50 mcg tablet Take 1 tablet (50 mcg total) by mouth [facility] before breakfast 4 Active testosterone cypionate (DEPO-TESTOTERO NE) 200 mg/mL injection Inject into the muscle as instructed every 14 (fourteen) days Active syringe with needle (BD Luer-Reinier Syringe) 3 mL 25 gauge x 1 syringe Active oxyCODONE-aceta minophen (PERCOCET) 5-325 mg per tabletIndicatio ns:Pain Take 1-2 tablets by mouth every 8 (eight) hours as needed for pain 30 tablet 5 Active Additional Information Patient not taking.Reported on 05/27/2024 docusate sodium (COLACE) 100 mg capsuleIndicati ons:constipatio n Take 1 capsule (100 mg total) by mouth 2 (two) times a day with a glass of water 30 capsule 5 Active Narcan 4 mg/actuation spray,non-aeros ol 0 5 Active amLODIPine (NORVASC) 10 mg tablet 5 Active Active Problems Problem Noted Date Diagnosed Date Hemorrhoids 05/13/2024 Family history of colon cancer 08/21/2023 Encounter for screening colonoscopy 08/21/2023 Encounters Date Type Department Care Team Description 05/27/2024 10:00 AM INTEGRITY ENGINEER Office Visit [facility] [address] [place] [address] [address] [place] [address] Curt Guillen MD Hemorrhoids, unspecified hemorrhoid type (Primary Dx) 05/18/2024 12:29 PM INTEGRITY ENGINEER Anesthesia Event [facility] Operating Room [address] [place] [address] Mary Escoto MD Reynolds, Ethan Emerson, MD 05/18/2024 11:00 AM INTEGRITY ENGINEER - 05/18/2024 12:15 PM INTEGRITY ENGINEER Surgery [facility] Operating Room [address] [place] [address] Curt Guillen MD HEMORRHOIDECTOMY 05/18/2024 9:01 AM INTEGRITY ENGINEER - 05/18/2024 3:00 PM INTEGRITY ENGINEER Hospital Encounter [facility] Operating Room [address] [place] [address] Curt Guillen MD Hemorrhoids, unspecified hemorrhoid type Discharge Disposition: Discharge to home or self care 05/13/2024 10:55 AM INTEGRITY ENGINEER Office Visit [address] [place] [address] Curt Guillen MD Hemorrhoids, unspecified hemorrhoid type 04/27/2024 11:13 AM INTEGRITY ENGINEER Anesthesia Event [address] [address] Virgilio Gayle MD Reinersman, Chelsea Couch, CRNA 04/27/2024 11:00 AM INTEGRITY ENGINEER - 04/27/2024 11:30 AM INTEGRITY ENGINEER Surgery [address] [address] Rajeev Barriga MD COLON REMOVAL SNARE 04/27/2024 9:29 AM INTEGRITY ENGINEER - 04/27/2024 1:01 PM INTEGRITY ENGINEER Hospital Encounter [address] [address] Rajeev Barriga MD Family history of colon cancer; Encounter for screening colonoscopy Discharge Disposition: Discharge to home or self care from Last 3 Months Surgical History Surgery Date Site/Laterality Comments GALLBLADDER SURGERY 04/01/2008 - 03/31/2009 HERNIA REPAIR 04/01/1977 - 03/31/1978 CARPAL TUNNEL RELEASE 04/01/2006 - 03/31/2007 Bilateral SCAPHOID FRACTURE SURGERY 04/01/2002 - 03/31/2003 Right Navicular bone removal on right foot COLONOSCOPY 04/27/2024 SHOULDER SURGERY Left LIPOMA RESECTION x 3 TONSILLECTOMY/ADENOIDECTOMY HEMORRHOID SURGERY 05/18/2024 Medical History Medical History Date Comments HBP (high blood pressure) Sleep apnea Thyroid disease Anxiety HLD (hyperlipidemia) Family History Medical History Relation Name Comments Arthritis Mother Colon cancer Paternal Grandfather Relation Name Status Comments Father Alive Mother Alive Paternal Grandfather Social History Tobacco Use Types Packs/Day Years Used Date Smoking Tobacco: Former Cigarettes Passive Smoke Exposure: Never Smokeless Tobacco: Never Tobacco Cessation:Counseling Given: Not Answered AUDIT-C Answer Date Recorded Q1: How often do you have a drink containing alc ohol? Monthly or less 05/18/2024 Q2: How many drinks containi ng alcohol do you have on a typical day when you are drinking? 1 or 2 05/18/2024 Q3: How often do you have si x or more drinks on one occasion? Monthly 05/18/2024 Personal Safety Answer Date Recorded Have you ever been in or are you currently in a harmful physical or emotional relationship or is someone making you feel afraid or unsafe? Denies 05/18/2024 Sex and Gender Information Value Date Recorded Sex Assigned at Not on file Legal Sex Male 10:49 PM INTEGRITY ENGINEER Gender Identity Not on file Sexual Orientation Not on file Obstetrics History Last Filed Vital Signs Vital Sign Reading Time Taken Comments Blood Pressure 127/83 05/27/2024 9:48 AM INTEGRITY ENGINEER Pulse 82 05/27/2024 9:48 AM INTEGRITY ENGINEER Temperature 36.2 C (97.1 F) 05/27/2024 9:48 AM INTEGRITY ENGINEER Respiratory Rate 18 05/18/2024 2:40 PM INTEGRITY ENGINEER Oxygen Saturation 96% 05/27/2024 9:48 AM INTEGRITY ENGINEER Inhaled Oxygen Concentration - - Weight 119.3 kg (263 lb) 05/27/2024 9:48 AM INTEGRITY ENGINEER Height 177.8 cm (5' 10 ) 05/27/2024 9:48 AM INTEGRITY ENGINEER Body Mass Index 37.74 05/27/2024 9:48 AM INTEGRITY ENGINEER Plan of Treatment Health Maintenance Due Date Last Done Comments Depression Screening 1975 Hepatitis C Screening 1975 Hepatitis B Screening 1994 Regular Well Visit/Exam 18-64 1994 Influenza Vaccine (#1) 2023 DTaP/Tdap/Td Vaccine (2 - Td or Tdap) 09/12/2027 09/11/2017 Colon Cancer Screening-Colonoscopy 04/27/20342024 Pneumococcal vaccine <65 Aged Out No longer eligible based on patient's age to complete this topic Procedures Procedure Name Priority Date/Time Associated Diagnosis Comments SURGICAL PATHOLOGY Routine 05/18/2024 2: 11 PM INTEGRITY ENGINEER Hemorrhoids, unspecified hemorrhoid type [place] AN ELECTIVE ENDOTRACHEAL AIRWAY Routine 05/18/2024 12:45 PM INTEGRITY ENGINEER HEMORRHOIDECTOMY 05/18/2024 12:1 3 PM INTEGRITY ENGINEER Hemorrhoids, unspecified hemorrhoid type POTASSIUM, WHOLE BLOOD STAT 9:30 AM INTEGRITY ENGINEER SURGICAL PATHOLOGY STAT 04/27/2024 1: 35 PM INTEGRITY ENGINEER Family history of colon cancer Encounter for screening colonoscopy ENDO ADD ON COLON INJECTION SUBMUCOSAL 04/27/2024 11:08 AM INTEGRITY ENGINEER Family history of colon cancer Encounter for screening colonoscopy COLON REMOVAL SNARE 04/27/2024 1 1:08 AM INTEGRITY ENGINEER Family history of colon cancer Encounter for screening colonoscopy COLONOSCOPY 04/27/2024 9:43 AM INTEGRITY ENGINEER from Last 3 Months Results * Surgical pathology (05/18/2024 2:11 PM INTEGRITY ENGINEER) Tissue specimen (specimen) (Hemorrhoid/Anal Tag) 05/18/2024 1:05 PM INTEGRITY ENGINEER Tissue specimen (specimen) (Hemorrhoid/Anal Tag) 05/18/2024 1:11 PM INTEGRITY ENGINEER Tissue specimen (specimen) (Hemorrhoid/Anal Tag) 05/18/2024 1:21 PM INTEGRITY ENGINEER Narrative PATHOLOGY [facility] - 05/19/2024 11:50 AM INTEGRITY ENGINEER EPIC results best viewed via link to PDF [facility] Department of Pathology [address] [place] [address] Note to Patients: This report may contain a detailed description of human tissue sent by a health care provider to the laboratory for pathologic evaluation. The content of this report is essential for diagnosis and may provide important critical findings. This information may be unfamiliar to patients to review without a medical professional present. It is advised that the patient review this report in the presence of a health care provider who can answer questions and explain the details. Final Report Patient Name: PROSPER HERNANDEZ Address: [address] [place] [address] Gender: M : 1975 (Age: 48) Service: Surgery Location: [facility] Hospital #: [id number] Patient Type: [facility] Taken: 05/18/2024 Received: 05/18/2024 Accessioned: 05/18/2024 Reported: 05/19/2024 Physician(s):Curt Guillen M.D. Diagnosis: A. Right posterior hemorrhoid, excision- Squamous mucosa with gross vascular congestion consistent with external hemorrhoid formation B. Right anterior hemorrhoid, excision- Benign squamous mucosa with overlying hyperkeratosis/parakeratosis underlying vascular prominence consistent with external hemorrhoid formation C. Left lateral hemorrhoid, excision- Benign squamous mucosa with mild overlying hyperkeratosis Underlying vascular prominence consistent with hemorrhoid formation Charlotte Ngo, M.D. Report Electronically Reviewed and Signed Out By Charlotte Ngo M.D. 05/19/2024 11:50:59 Specimen(s) Received: A: Right posterior hemorrhoid B: Right anterior hemorrhoid C: Left lateral hemorrhoid Microscopic Description: Microscopic examination corroborates the diagnosis. Clinical History: Hemorrhoids. Hemorrhoidectomy. Gross Description: The specimen is submitted in three formalin containers labeled PROSPER Mckeon A. The first container is labeled right posterior hemorrhoid . It is a piece of red mendez congested mucosa with dilated blood filled vessels on the cut surface measuring 3.5 x 1.5 x 1 cm. Represented in A B. The second container is labeled right anterior hemorrhoid . It is a piece of red mendez congested mucosa with dilated blood filled vessels on the cut surface measuring 1.2 cm. Represented in B C. The third container is labeled left lateral hemorrhoid . It is a piece of red mendez congested mucosa with dilated blood filled vessels on the cut surface measuring 2.0. Represented in C T.Reece Phelps R.N., P.A./Ronal Shah M.D. REPORT IMAGES AND SCANNED DOCUMENTS, IF INCLUDED, ONLY VIEWABLE IN PDF VERSION OF REPORT The performance characteristics of some immunohistochemical stains, fluorescence in-situ hybridization tests and immunophenotyping by flow cytometry cited in this report (if any) were determined by the Surgical Pathology Department at [facility] as part of an ongoing quality officer program and in compliance with federally mandated regulations drawn from the Clinical Laboratory Improvement Act of 1988 (CLIA '88). Some of these tests rely on the use of analyte specific reagents and are subject to specific labeling requirements by the US Food and Drug Administration. Such diagnostic tests may only be performed in a facility that is certified by the Department of Health and Human Services as a high complexity laboratory under CLIA '88. The FDA has determined that such clearance or approval is not necessary. This test is used for clinical purposes. It should not be regarded as investigational or for research. Nevertheless, federal rules concerning the medical use of analyte specific reagents require that the following disclaimer be attached to the report: This test was developed and its performance characteristics determined by the Surgical Pathology Department [facility]. It has not been cleared or approved by the U. S. Food and Drug Administration. Note for decalcified specimens: This assay has not been validated on decalcified tissues. Results should be interpreted with caution given the possibility of false negativity on decalcified specimens Curt Guillen MD LAB PATHOLOGY ORDER MICHELLE Final Result PATHOLOGY [facility] [address] [place] [address] * [place] AN ELECTIVE ENDOTRACHEAL AIRWAY (05/18/2024 12:45 PM INTEGRITY ENGINEER) Narrative Jin Bautista CRNA - 05/18/2024 12:45 PM INTEGRITY ENGINEER Jin Bautista CRNA 05/18/2024 12:45 PM Airway Patient location: OR Urgency: elective Indications for airway management: anesthesia and airway protection Difficult airway: no Staff: Supervising provider: Mary Escoto MD Placed by: FIRER LOCOMOTIVE CRANE: Jin Bautista CRNA Emergent airway documentation: Risks and benefits discussed: yes Consent obtained: yes Consent given by: patient Airway prep: Preoxygenated: yes Patient position: sniffing Mask difficulty assessment: 0 - not attempted Spontaneous ventilation during airway: absent Sedation level during airway: GA Final airway details: Final airway type: endotracheal airway Tube type: ETT ETT size: 7.5 mm Cuffed: yes Technique used for successful ETT placement: video laryngoscopy Devices/Methods used in placement: intubating stylet Insertion site: oral Blade type: Juve Video blade type: Sampson Blade size: 3 Cormack-Lehane (video): grade I - full view of glottis Cuff volume: 7 mL Cuff inflated with: air ETT to lips: 22 cm Placement verified by: auscultation and CO2 detection Airway secured with: silk tape Number of attempts: 1 Ventilation between attempts: none Additional comments: Atraumatic intubation. us Mary Escoto MD ANESTHESIA ORDERABLES Fi nal Result * Potassium, whole blood (05/18/2024 9:30 AM INTEGRITY ENGINEER) Potassium, bld 3.8 3.3 - 4.9 mmol/L Comment: Interpretive Data This method is not able to assess for hemolysis, which may falsely increase potassium concentrations. If further testing is needed to evaluate this result, consider in-laboratory plasma potassium. Current Interpretive Data was last revised on 2021. Blood 05/18/2024 9:30 AM INTEGRITY ENGINEER 05/18/2024 9:31 AM INTEGRITY ENGINEER us Virgilio Gayle MD LAB BLOOD ORDERABLES F inal Result [facility] [address] [place] [address] Department [place] [address] * Surgical pathology (04/27/2024 1:35 PM INTEGRITY ENGINEER) Tissue specimen (specimen) (Polyp(s), colon/colorectal, esophageal, gastric) 04/27/2024 11:39 AM INTEGRITY ENGINEER Tissue specimen (specimen) (Polyp(s), colon/colorectal, esophageal, gastric) 04/27/2024 11:43 AM INTEGRITY ENGINEER Tissue specimen (specimen) (Polyp(s), colon/colorectal, esophageal, gastric) 04/27/2024 12:05 PM INTEGRITY ENGINEER Narrative PATHOLOGY [facility] - 04/29/2024 12:29 PM INTEGRITY ENGINEER EPIC results best viewed via link to PDF [facility] Department of Pathology [address] [place] [id number] Note to Patients: This report may contain a detailed description of human tissue sent by a health care provider to the laboratory for pathologic evaluation. The content of this report is essential for diagnosis and may provide important critical findings. This information may be unfamiliar to patients to review without a medical professional present. It is advised that the patient review this report in the presence of a health care provider who can answer questions and explain the details. Final Report Patient Name: PROSPER HERNANDEZ Address: [address] [place] [address] Gender: M : 1975 (Age: 48) Service: Gastro Location: [facility] Hospital #: [id number] Patient Type: [facility] Taken: 04/27/2024 Received: 04/28/2024 Accessioned: 04/28/2024 Reported: 04/29/2024 Physician(s):Rajeev Barriga MD Diagnosis: A. Colon, transverse, biopsy: - Tubular adenoma. - No evidence of high-grade dysplasia or malignancy. B. Colon, descending, biopsy: - Tubular adenoma. - No evidence of high-grade dysplasia or malignancy. C. Colon, sigmoid, biopsy: - Tubulovillous adenoma. - No evidence of high-grade dysplasia or malignancy. Cresencio Wilcox MD Report Electronically Reviewed and Signed Out By Cresencio Wilcox MD 04/29/2024 12:29:10 Specimen(s) Received: A: Transverse colon polyp x 1 B: Descending colon polyp x 1 C: Sigmoid colon polyp x 1 Microscopic Description: A. Microscopic examination shows three polypoid fragments of colonic mucosa, two of which show adenomatous mucosal changes consistent with a tubular adenoma. There is no evidence of high-grade dysplasia or malignancy. B. Microscopic examination shows multiple polypoid fragments of colonic mucosa with adenomatous mucosal changes consistent with a tubular adenoma. There is no evidence of high-grade dysplasia or malignancy. C. Microscopic examination of the bisected specimen shows polypoid fragments of colonic mucosa with adenomatous mucosal changes and surface villiform architecture. The findings are consistent with a tubulovillous adenoma. There is no evidence of high-grade dysplasia or malignancy. Clinical History: Family history of colon cancer. Screening colonoscopy. Gross Description: The specimen is submitted in three formalin containers labeled PROSPER HERNANDEZ . A. The first container is labeled transverse colon polyp . It is 3 fragments of mendez tissue between 1 and 2 mm. All in A. B. The second container is labeled descending colon polyp . It is multiple fragments of mendez tissue between 1 and 5 mm. The largest is inked and bisected. All in B. C. The third container is labeled sigmoid colon polyp . It is 1 red-mendez polypoid tissue fragment measuring 2.5 cm. Inked and bisected. All in C. T.A. Rosie Phelps., P.A./Charlotte Ngo M.D. REPORT IMAGES AND SCANNED DOCUMENTS, IF INCLUDED, ONLY VIEWABLE IN PDF VERSION OF REPORT The performance characteristics of some immunohistochemical stains, fluorescence in-situ hybridization tests and immunophenotyping by flow cytometry cited in this report (if any) were determined by the Surgical Pathology Department at [facility] as part of an ongoing quality officer program and in compliance with federally mandated regulations drawn from the Clinical Laboratory Improvement Act of 1988 (CLIA '88). Some of these tests rely on the use of analyte specific reagents and are subject to specific labeling requirements by the US Food and Drug Administration. Such diagnostic tests may only be performed in a facility that is certified by the Department of Health and Human Services as a high complexity laboratory under CLIA '88. The FDA has determined that such clearance or approval is not necessary. This test is used for clinical purposes. It should not be regarded as investigational or for research. Nevertheless, federal rules concerning the medical use of analyte specific reagents require that the following disclaimer be attached to the report: This test was developed and its performance characteristics determined by the Surgical Pathology Department [facility]. It has not been cleared or approved by the U. S. Food and Drug Administration. Note for decalcified specimens: This assay has not been validated on decalcified tissues. Results should be interpreted with caution given the possibility of false negativity on decalcified specimens Rajeev Barriga MD LAB PATHOLOGY ORDERABLES Final R esult PATHOLOGY [facility] [address] [place] [id number] * Colonoscopy (04/27/2024 9:43 AM INTEGRITY ENGINEER) Anatomical Region Laterality Modality Other Narrative Procedure Note Rajeev Barriga MD - 04/27/2024 9:43 AM CST [facility] Patient Name: Prosper Hernandez Procedure Date: 04/27/2024 9:43 AM Date of : 1975 Admit Type: Outpatient Age: 48 Gender: Male Attending MD: Rajeev Barriga M.D. Room: [facility] ENDOSCOPY ROOM 3 Note Status: Finalized Patient Profile: This is a 48 year old male hx of HTN, HLD, MELISSA,morbid obesity, and hypothyroidism here for colon cancer screening. Patient endorsing intermittent bleedingand prolapsed hemorrhoids. Grandfather with coloncancer. Procedure: Colonoscopy Indications: Screening for colorectal malignant neoplasm, Thisis the patient's first colonoscopy Referring MD: Maria R Anderson PA-C Providers: Rajeev Barriga M.D. Impression: - Hemorrhoids found on perianal exam. - Two 6 to 9 mm polyps in the descending colon andin the transverse colon, removed with a cold snare. Resected and retrieved. - One 20 mm polyp in the sigmoid colon, removedwith a hot snare. Resected and retrieved. Injected. Clips(MR conditional) were placed. Clip lining finisher: [employer]. - Diverticulosis in the sigmoid colon and in the ascending colon. - External and internal hemorrhoids. Recommendation: - Patient has a contact number available for emergencies. The signs and symptoms of potential delayed complications were discussed with thepatient. Return to normal activities tomorrow. Written discharge instructions were provided to thepatient. - Discharge patient to home (with escort). - Soft diet for 3 days. - No ibuprofen, naproxen, or other non-steroidal anti-inflammatory drugs and no heavy lifting >25lbs for 2 weeks after polyp removal. - Await pathology results. - Repeat colonoscopy in 3 years for surveillancebased on pathology results. - Refer to colorectal surgery forhemorroidectomy. - Return to referring physician as previously scheduled. Medicines: Monitored Anesthesia Care Complications: No immediate complications. Estimated Blood Loss: Estimated blood loss was minimal. Procedure: Pre-Anesthesia Assessment: - Prior to the procedure, a History and Physicalwas performed, and patient medications and allergieswere reviewed. The patient is competent. The risks and benefits of the procedure and the sedation optionsand risks were discussed with the patient. Allquestions were answered and informed consent was obtained. Patient identification and proposed procedure were verified by the physician, the station tender and the laboratory mechanical technician in the endoscopy suite. Mental Status Examination: normal. Prophylactic Antibiotics: The patient does not require prophylactic antibiotics. Prior Anticoagulants: The patient has taken no anticoagulant or antiplatelet agents. Afterreviewing the risks and benefits, the patient was deemed in satisfactory condition to undergo the procedure.The anesthesia plan was to use monitored anesthesiacare (MAC). Immediately prior to administration of medications, the patient was re-assessed foradequacy to receive sedatives. The heart rate, respiratory rate, oxygen saturations, blood pressure, adequacyof pulmonary ventilation, and response to care were monitored throughout the procedure. The physical status of the patient was re-assessed after the procedure. The benefits, risks and alternatives of theprocedure and sedation were discussed and informed consentwas obtained. All questions were answered. Please referto the signed informed consent document in the medical record. The bowel preparation used was Miralax via split dose instruction. The bowel preparation usedwas bisacodyl tablets via split dose instruction. The scope was passed under direct vision. TheColonoscope [id number] was introduced through the anus and advanced to the the cecum, identified by appendiceal orifice and ileocecal valve. The colonoscopy was performed without difficulty. The patient tolerated the procedure well. The qualityof the bowel preparation was adequate. Bowel prep was administered using a split dose. Findings: Large external hemorrhoids were found on perianal exam. Two sessile polyps were found in the descending colon and transverse colon. The polyps were 6 to 9 mm in size. These polyps were removedwith a cold snare. Resection and retrieval were complete. A 20 mm polyp was found in the sigmoid colon. The polyp was pedunculated. Area was successfully injected with 3 mL of a 0.1 mg/mL solution of epinephrine for drug delivery. The polyp was removed witha hot snare. Resection and retrieval were complete. To prevent bleeding after the polypectomy, two hemostatic clips were successfully placed(MR conditional). Clip lining finisher: [employer]. There was no bleeding at the end of the procedure. Multiple small and large-mouthed diverticula were found in thesigmoid colon and ascending colon. External and internal hemorrhoids were found during retroflexion. Rajeev Barriga M.D. 04/27/2024 12:14:38 PM Number of Addenda: 0 Note Initiated On: 04/27/2024 9:43 AM Procedure Code(s): --- Professional --- 24910, Colonoscopy, flexible; with removal of tumor(s), polyp(s), or other lesion(s) by snare technique [id number], Colonoscopy, flexible; with directed submucosal injection(s),any substance --- Technical --- 54424, Colonoscopy, flexible; with removal of tumor(s), polyp(s), or other lesion(s) by snare technique [id number], Colonoscopy, flexible; with directed submucosal injection(s),any substance Diagnosis Code(s): --- Professional --- Z12.11, Encounter for screening for malignant neoplasm of colon K64.8, Other hemorrhoids D12.4, Benign neoplasm of descending colon D12.3, 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 All rights reserved. The codes documented in this report are preliminary and upon foxing painter reviewmay be revised to meet current compliance requirements. Recognized by the [employer] for promoting quality in endoscopy Rajeev Barriga MD ENDOSCOPY PROCEDURES Final Resul t from Last 3 Months Insurance [employer] [place] [employer] [place] Advance Directives For more information, please contact: [phone] * Full Code (Latest Code Status on File) Date Activated Date Inactivated Comments 04/27/2024 9:45 AM 04/27/2024 5:06 PM * Full Code Date Activated Date Inactivated Comments 04/27/2024 9:45 AM 04/27/2024 9:45 AM Care Teams Rn Neonatal Relationship Specialty Start Date End Date Maria R Anderson PA [phone] [place] [address] PCP - General Physician Plant Facilities Technician 05/31/23 Alfredo Jung MD [address] [place] [id number] Referring Physician Vascular Surgery 04/18/23 Darinel Cano MD [phone] [place] [address] Surgeon Colon and Rectal Surgery 05/31/23
--- OUTSIDE RECORDS SUMMARY | 2024-07-11 07:50 | XMS_ITS | Data Portability ---
Author Organization [facility] [employer], Main Office Address [address] [place] [address] Assessment No assessment recorded. Plan of Treatment Reminders Order Date Submit Date Provider Last Modified By Organization Details Last Modified Time Details Appointments None recorded. Lab HbA1c (hemoglob in A1c), blood 2022 023 [facility], [address], [address], [place], [address], 3 18:47:34 testoster one, free + total, serum 2022 023 [facility], [address], [address], [place], [address], 3 18:47:40 CBC w/ auto diff 2022 023 [facility], [address], [address], [place], [address], 3 18:47:36 CMP, serum or plasma 2022 023 [facility]on [facility], [address], [address], [place], [address], 3 18:47:33 urinalysi s, dipstick, reflex micro 2022 023 [facility], [address], [address], [place], [address], 3 18:47:37 vitamin B12 + folate, serum or blood 2022 023 [facility], [address], [address], [place], [address], 3 18:47:38 lipid panel, serum 2022 023 [facility], [address], [address], [place], [address], 3 18:47:32 PSA, serum or plasma 2022 023 [facility], [address], [address], [place], [address], 3 18:47:39 TSH + free T4, serum 2022 023 [facility], [address], [address], [place], [address], 3 18:47:30 T3, free, serum or plasma 2022 023 [facility], [address], [address], [place], [address], 3 18:47:35 Referral otolaryng ologist referral 2022 023 [email or web address] [facility] ([facility]), [address] [facility] , [address], [place], [address], 4 17:47:23 Procedures None recorded. Surgeries None recorded. Imaging None recorded. Medication Orders None recorded. Patient TargetsNo targets recorded. Patient InstructionsNo instructions recorded. Reason for Referral Director Video Referral fo r Chronic hoarseness Referring Physician: Maria R Anderson, Internal Medicine, Encounter Date: 10/18/2022 Results Created Date Observation Date Name Description Value Unit Range Abnormal Flag Note LastModifiedBy Organization Detail LastModifiedTime 11/23/19 22 11/25/2021 TESTO STERO NE, TOTAL , MS testosterone , total, MS 285 NG/dL 250-11 00 Men with clini darlene signi fican t hypog onada l sympt oms and testo stero ne value s repea tedly in the range of the 200-3 00 ng/dL or less, may benef it from testo stero ne treat ment after adequ ate risk and benef its couns eling . For addit ional infor meg n, pleelliott e refer to https ://ed ucati on.qu estSkyrobotic. com/f aq/To Chucho hart LCMSM S (This link is being provi ded for infor matio nal/e ducat ional purpo ses only. ) (Note ) This test was devel oped and its harpreet tical perfo rmanc e kaleb cteri stics have been deter mined by [employer]. It has not been clear ed or appro rebeca by the FDA. This assay has been valid ated pursu ant to the CLIA regul ation s and is used for clini nathalie purpo ses. MDF med fusio n [address] [facility] [address] [facility] [address] [phone] César meek MD Not Available [facility] [address] [place], [address], 11/25/2021 10:10:41 11/23/19 22 11/25/2021 PSA, TOTAL PSA, total 0.44 NG/mL < or = 4.00 normal The total PSA value from this assay syste m is stand ardiz ed again st the WHO stand herberth. The test resul t will be appro ximat sujey 20% lower when miguel angel red to the equim olar- stand ardiz ed total PSA (Cooley man Coult er). Miguel Angel rison of seria l PSA resul ts shoul d be inter prete d with this fact in mind. This test was perfo rmed using the Sieme ns chemi lumin escen t metho d. Value s obtai serafin from diffe rent assay metho ds canno t be used inter ramirez eably . PSA level s, regar dless of value , shoul d not be inter prete d as absol krupa evide nce of the prese nce or absen ce of [facility]. Not Available [address], [address], 11/25/2021 10:10:40 11/23/19 22 11/25/2021 URINA LYSIS , COMPL ETE color dark yellow yellow normal Not Available [address], [address], 11/25/2021 10:10:40 11/23/19 22 11/25/2021 URINA LYSIS , COMPL ETE appearance cloudy clear abnormal Not Available [address], [address], 11/25/2021 10:10:40 11/23/19 22 11/25/2021 URINA LYSIS , COMPL ETE specific gravity 1.030 1.001- 1.035 normal Not Available [address], [address], 11/25/2021 10:10:40 11/23/19 22 11/25/2021 URINA LYSIS , COMPL ETE pH < or = 5.0 5.0-8. 0 normal Not Available [address], [address], 11/25/2021 10:10:40 11/23/19 22 11/25/2021 URINA LYSIS , COMPL ETE glucose negati ve negati ve normal Not Available [address], [address], 11/25/2021 10:10:40 11/23/19 22 11/25/2021 URINA LYSIS , COMPL ETE bilirubin negati ve negati ve normal Not Available [address], [address], 11/25/2021 10:10:40 11/23/19 22 11/25/2021 URINA LYSIS , COMPL ETE ketones negati ve negati ve normal Not Available [address], [address], 11/25/2021 10:10:40 11/23/19 22 11/25/2021 URINA LYSIS , COMPL ETE occult blood negati ve negati ve normal Not Available [address], [address], 11/25/2021 10:10:40 11/23/19 22 11/25/2021 URINA LYSIS , COMPL ETE protein trace negati ve abnormal Not Available [address], [address], 11/25/2021 10:10:40 11/23/19 22 11/25/2021 URINA LYSIS , COMPL ETE nitrite negati ve negati ve normal Not Available [address], [address], 11/25/2021 10:10:40 11/23/19 22 11/25/2021 URINA LYSIS , COMPL ETE leukocyte esterase negati ve negati ve normal Not Available [address], [address], 11/25/2021 10:10:40 11/23/19 22 11/25/2021 URINA LYSIS , COMPL ETE bacteria none seen /hpf none seen normal Not Available [address], [address], 11/25/2021 10:10:40 11/23/19 22 11/25/2021 URINA LYSIS , COMPL ETE WBC 0-5 /hpf < or = 5 normal Not Available [address], [address], 11/25/2021 10:10:40 11/23/19 22 11/25/2021 URINA LYSIS , COMPL ETE RBC 0-2 /hpf < or = 2 normal Not Available [facility] [address] [address] [place], [address], 11/25/2021 10:10:40 11/23/19 22 11/25/2021 URINA LYSIS , COMPL ETE squamous epithelial cells 0-5 /hpf < or = 5 Not Available [facility] [address] [place], [address], 11/25/2021 10:10:40 11/23/19 22 11/25/2021 URINA LYSIS , COMPL ETE hyaline cast none seen /lpf none seen normal Not Available [facility] [address] [address] [place], [address], 11/25/2021 10:10:40 11/23/19 22 11/25/2021 HEMOG LOBIN A1C hemoglobin A1C 5.4 %_of_ total _HGB <5.7 normal For the purpo se of pretty cid for the prese nce of diabe sid: <5.7% Consi stent with the absen ce of diabe sid 5.7-6 .4% Consi stent with incre ased risk for diabe sid (pred iabet es) > or =6.5% Consi stent with diabe sid This assay resul t is consi stent with a decre ased risk of diabe sid. Curre ntly, no conse nsus exist s cynthia colin use of hemog lobin A1c for diagn osis of diabe sid in child jose guadalupe. Accor ding to Ameri can Diabe sid Assoc iatio n (ADA) guide lines , hemog lobin A1c <7.0% repre sents optim al contr ol in non-p regna nt diabe tic patie nts. Diffe rent metri cs may apply to speci fic patie nt popul ation s. Stand ards of Medic al Care in Diabe sid(A DA). Not Available [facility] [address], [place], [address], 11/25/2021 10:10:38 11/23/19 22 11/25/2021 COMPR EHENS JAIRO METAB OLIC PANEL glucose 112 mg/dL 65-99 high Fasti ng refer ence inter sly For someo ne witho ut known diabe sid, a gluco se value betwe en 100 and 125 mg/dL is consi stent with predi abete s and shoul d be confi rmed with a follo w-up test. Not Available [facility] [address] [address] [place], [address], 11/25/2021 10:10:37 11/23/19 22 11/25/2021 COMPR EHENS JAIRO METAB OLIC PANEL urea nitrogen (BUN) 18 mg/dL 7-25 normal Not Available [facility] [address], [address], 11/25/2021 10:10:37 11/23/19 22 11/25/2021 COMPR EHENS JAIRO METAB OLIC PANEL creatinine 0.76 mg/dL 0.60-1 .29 normal Not Available [address] [address] [place], [address], 11/25/2021 10:10:37 11/23/19 22 11/25/2021 COMPR EHENS JAIRO METAB OLIC PANEL eGFR 113 mL/mi n/1.7 3m2 > or = 60 normal The eGFR is based on the CKD-E PI 2020 equat ion. To calcu late the new eGFR from a previ ous Creat inine or Cysta tin C resul t, go to https ://tika w.lakeisha gandara.o monica/negar castro s/ kdoqi /gfr% 5Fcal culat or Not Available [employer] [facility] [address] [address] [place], [address], 11/25/2021 10:10:37 11/23/19 22 11/25/2021 COMPR EHENS JAIRO METAB OLIC PANEL BUN/creatini ne ratio not applic able (calc ) 6-22 Not Available [employer] [address] [address] [place], [address], 11/25/2021 10:10:37 11/23/19 22 11/25/2021 COMPR EHENS JAIRO METAB OLIC PANEL sodium 141 mmol/ L 135-14 6 normal Not Available [address], [address], 11/25/2021 10:10:37 11/23/19 22 11/25/2021 COMPR EHENS JAIRO METAB OLIC PANEL potassium 3.8 mmol/ L 3.5-5. 3 normal Not Available [address], [address], 11/25/2021 10:10:37 11/23/19 22 11/25/2021 COMPR EHENS JAIRO METAB OLIC PANEL chloride 104 mmol/ L 98-110 normal Not Available [address], [address], 11/25/2021 10:10:37 11/23/19 22 11/25/2021 COMPR EHENS JAIRO METAB OLIC PANEL carbon dioxide 24 mmol/ L 20-32 normal Not Available [address], [address], 11/25/2021 10:10:37 11/23/19 22 11/25/2021 COMPR EHENS JAIRO METAB OLIC PANEL calcium 9.2 mg/dL 8.6-10 .3 normal Not Available [address], [address], 11/25/2021 10:10:37 11/23/19 22 11/25/2021 COMPR EHENS JAIRO METAB OLIC PANEL protein, total 6.8 g/dL 6.1-8. 1 normal Not Available [address], [address], 11/25/2021 10:10:37 11/23/19 22 11/25/2021 COMPR EHENS JAIRO METAB OLIC PANEL albumin 4.6 g/dL 3.6-5. 1 normal Not Available [address] [address] [place], [address], 11/25/2021 10:10:37 11/23/19 22 11/25/2021 COMPR EHENS JAIRO METAB OLIC PANEL globulin 2.2 g/dL_ (calc ) 1.9-3. 7 normal Not Available [address] [address] [place], [address], 11/25/2021 10:10:37 11/23/19 22 11/25/2021 COMPR EHENS JAIRO METAB OLIC PANEL albumin/glob ulin ratio 2.1 (calc ) 1.0-2. 5 normal Not Available [address] [address] [place], [address], 11/25/2021 10:10:37 11/23/19 22 11/25/2021 COMPR EHENS JAIRO METAB OLIC PANEL bilirubin, total 0.6 mg/dL 0.2-1. 2 normal Not Available [address] [address] [place], [address], 11/25/2021 10:10:37 11/23/19 22 11/25/2021 COMPR EHENS JAIRO METAB OLIC PANEL alkaline phosphatase 51 U/L 36-130 normal Not Available [address] [address] [place], [address], 11/25/2021 10:10:37 11/23/19 22 11/25/2021 COMPR EHENS JAIRO METAB OLIC PANEL AST 25 U/L 10-40 normal Not Available [address] [address] [place], [address], 11/25/2021 10:10:37 11/23/19 22 11/25/2021 COMPR EHENS JAIRO METAB OLIC PANEL ALT 38 U/L 9-46 normal Not Available [address] [address] [place], [address], 11/25/2021 10:10:37 11/23/19 22 11/25/2021 LIPID PANEL WITH RATIO S HDL cholesterol 29 mg/dL > or = 40 low Not Available [address], [address], 11/25/2021 10:10:37 11/23/19 22 11/25/2021 LIPID PANEL WITH RATIO S cholesterol, total 122 mg/dL <200 normal Not Available [address] [address] [place], [address], 11/25/2021 10:10:37 11/23/19 22 11/25/2021 LIPID PANEL WITH RATIO S triglyceride s 219 mg/dL <150 high If a non-f astin g speci men was colle cted, consi derek repea t trigl yceri de testi ng on a fasti ng speci men if clini darlene indic ated. Akil hodgson et al. J. of Clin. Lipid ol. 2015; 9:129 -169. Not Available [address], [address], 11/25/2021 10:10:37 11/23/19 22 11/25/2021 LIPID PANEL WITH RATIO S LDL-choleste rol 64 mg/dL _(nathalie c) normal Refer ence range : <100 Luis A able range <100 mg/dL for prima ry preve ntion ; <70 mg/dL for patie nts with CHD or diabe tic patie nts with > or = 2 CHD risk facto rs. LDL-C is now calcu lated using the Kira n-Hop kins calcu latio n, which is a valid ated novel moo jones actheo than the Fried felix equat ion in the estim ation of LDL-C . Kira garner SS et al. ANGELIKA. 2013; 310(1 9): 2061- 2068 (http ://ed ucati on.Qu estDi Optimal, Inc.os Doists. com/f aq/FA Q164) Not Available [address] [address] [place], [address], 11/25/2021 10:10:37 11/23/19 22 11/25/2021 LIPID PANEL WITH RATIO S chol/HDLC ratio 4.2 (calc ) <5.0 normal Not Available [address], [address], 11/25/2021 10:10:37 11/23/19 22 11/25/2021 LIPID PANEL WITH RATIO S LDL/HDL ratio 2.2 (calc ) Below Calvin ge Risk: <2.28 Calvin ge Risk: 2.29- 4.90 Moder ate Risk: 4.91- 7.12 High Risk: >7.13 Not Available [address], [address], 11/25/2021 10:10:37 11/23/19 22 11/25/2021 LIPID PANEL WITH RATIO S non HDL cholesterol 93 mg/dL _(nathalie c) <130 normal For patie nts with diabe sid plus 1 major ASCVD risk facto r, treat ing to a non-H DL-C goal of <100 mg/dL (LDL- C of <70 mg/dL ) is berna madrigalo n. Not Available [address], [address], 11/25/2021 10:10:37 11/23/19 22 11/25/2021 TSH+F REE T4 TSH 2.13 mIU/L 0.40-4 .50 normal Not Available [facility] [address], [address], 11/25/2021 10:10:36 11/23/19 22 11/25/2021 TSH+F REE T4 T4, free 1.5 NG/dL 0.8-1. 8 normal Not Available [facility] [address] [place], [address], 11/25/2021 10:10:36 11/23/19 22 11/25/2021 CBC (INCL UDES DIFF/ PLT) hematocrit 43.1 % 38.5-5 0.0 normal Not Available [address], [address], 11/25/2021 10:10:39 11/23/19 22 11/25/2021 CBC (INCL UDES DIFF/ PLT) white blood cell count 6.7 thous and/u L 3.8-10 .8 normal Not Available [address], [address], 11/25/2021 10:10:39 11/23/19 22 11/25/2021 CBC (INCL UDES DIFF/ PLT) red blood cell count 4.87 saman on/uL 4.20-5 .80 normal Not Available [address], [address], 11/25/2021 10:10:39 11/23/19 22 11/25/2021 CBC (INCL UDES DIFF/ PLT) hemoglobin 14.9 g/dL 13.2-1 7.1 normal Not Available [address], [address], 11/25/2021 10:10:39 11/23/19 22 11/25/2021 CBC (INCL UDES DIFF/ PLT) MCV 88.5 fL 80.0-1 00.0 normal Not Available [address], [address], 11/25/2021 10:10:39 11/23/19 22 11/25/2021 CBC (INCL UDES DIFF/ PLT) MCH 30.6 pg 27.0-3 3.0 normal Not Available [address], [address], 11/25/2021 10:10:39 11/23/19 22 11/25/2021 CBC (INCL UDES DIFF/ PLT) MCHC 34.6 g/dL 32.0-3 6.0 normal Not Available [address], [address], 11/25/2021 10:10:39 11/23/19 22 11/25/2021 CBC (INCL UDES DIFF/ PLT) RDW 13.0 % 11.0-1 5.0 normal Not Available [address], [address], 11/25/2021 10:10:39 11/23/19 22 11/25/2021 CBC (INCL UDES DIFF/ PLT) platelet count 234 thous and/u L 140-40 0 normal Not Available [address], [address], 11/25/2021 10:10:39 11/23/19 22 11/25/2021 CBC (INCL UDES DIFF/ PLT) MPV 9.4 fL 7.5-12 .5 normal Not Available [address], [address], 11/25/2021 10:10:39 11/23/19 22 11/25/2021 CBC (INCL UDES DIFF/ PLT) absolute neutrophils 3926 cells /uL 1500-7 800 normal Not Available [address], [address], 11/25/2021 10:10:39 11/23/19 22 11/25/2021 CBC (INCL UDES DIFF/ PLT) absolute lymphocytes 2037 cells /uL 850-39 00 normal Not Available [address], [address], 11/25/2021 10:10:39 11/23/19 22 11/25/2021 CBC (INCL UDES DIFF/ PLT) absolute monocytes 549 cells /uL 200-95 0 normal Not Available [address], [address], 11/25/2021 10:10:39 11/23/19 22 11/25/2021 CBC (INCL UDES DIFF/ PLT) absolute eosinophils 147 cells /uL 15-500 normal Not Available [address], [address], 11/25/2021 10:10:39 11/23/19 22 11/25/2021 CBC (INCL UDES DIFF/ PLT) absolute basophils 40 cells /uL 0-200 normal Not Available [address], [address], 11/25/2021 10:10:39 11/23/19 22 11/25/2021 CBC (INCL UDES DIFF/ PLT) neutrophils 58.6 % normal Not Available [address], [address], 11/25/2021 10:10:39 11/23/19 22 11/25/2021 CBC (INCL UDES DIFF/ PLT) lymphocytes 30.4 % normal Not Available [facility] [address], [address], 11/25/2021 10:10:39 11/23/19 22 11/25/2021 CBC (INCL UDES DIFF/ PLT) monocytes 8.2 % normal Not Available [facility] [address], [address], 11/25/2021 10:10:39 11/23/19 22 11/25/2021 CBC (INCL UDES DIFF/ PLT) eosinophils 2.2 % normal Not Available [facility] [address], [address], 11/25/2021 10:10:39 11/23/19 22 11/25/2021 CBC (INCL UDES DIFF/ PLT) basophils 0.6 % normal Not Available [facility] [address], [address], 11/25/2021 10:10:39 09/16/12/20/2022 TSH+F REE T4 TSH 1.20 mIU/L 0.40-4 .50 normal Not Available [address], [address], 12/20/2022 18:47:30 12/16/19 23 12/20/2022 TSH+F REE T4 T4, free 1.3 NG/dL 0.8-1. 8 normal Not Available [address], [address], 12/20/2022 18:47:30 12/16/19 23 12/20/2022 LIPID PANEL WITH RATIO S cholesterol, total 113 mg/dL <200 normal Not Available [address], [address], 12/20/2022 18:47:31 12/16/19 23 12/20/2022 LIPID PANEL WITH RATIO S HDL cholesterol 26 mg/dL > or = 40 low Not Available [address], [address], 12/20/2022 18:47:31 12/16/19 23 12/20/2022 LIPID PANEL WITH RATIO S triglyceride s 166 mg/dL <150 high Not Available [address], [address], 12/20/2022 18:47:31 12/16/19 23 12/20/2022 LIPID PANEL WITH RATIO S LDL-choleste rol 63 mg/dL _(nathalie c) normal Refer ence range : <100 Luis A able range <100 mg/dL for prima ry preve ntion ; <70 mg/dL for patie nts with CHD or diabe tic patie nts with > or = 2 CHD risk facto rs. LDL-C is now calcu lated using the Kira n-Hop kins calcu latjorge l n, which is a valid ated novel metho d provi dixie benoit r accur acy than the Fried felix equat ion in the estim ation of LDL-C . Kira garner SS et al. ANGELIKA. 2013; 310(1 9): 2061- 2068 (http ://ed ucati on.Qu Shai chesterSpinal Ventures. com/f aq/FA Q164) Not Available [address], [address], 12/20/2022 18:47:31 12/16/19 23 12/20/2022 LIPID PANEL WITH RATIO S chol/HDLC ratio 4.3 (calc ) <5.0 normal Not Available [address], [address], 12/20/2022 18:47:31 12/16/1912/20/2022 LIPID PANEL WITH RATIO S LDL/HDL ratio 2.4 (calc ) Below Calvin ge Risk: <2.28 Calvin ge Risk: 2.29- 4.90 Moder ate Risk: 4.91- 7.12 High Risk: >7.13 Not Available [address], [place], [address], 12/20/2022 18:47:31 12/16/1912/20/2022 LIPID PANEL WITH RATIO S non HDL cholesterol 87 mg/dL _(nathalie c) <130 normal For patie nts with diabe sid plus 1 major ASCVD risk facto r, treat ing to a non-H DL-C goal of <100 mg/dL (LDL- C of <70 mg/dL ) is consi dered a thera peuti c optio n. Not Available [facility] [address] [place] [address], [address], 12/20/2022 18:47:31 12/16/1912/20/2022 COMPR EHENS JAIRO METAB OLIC PANEL glucose 122 mg/dL 65-99 high Fasti ng refer ence inter sly For someo ne witho ut known diabe sid, a gluco se value betwe en 100 and 125 mg/dL is consi stent with predi abete s and shoul d be confi rmed with a follo w-up test. Not Available [address], [address], 12/20/2022 18:47:33 12/16/19 23 12/20/2022 COMPR EHENS JAIRO METAB OLIC PANEL urea nitrogen (BUN) 16 mg/dL 7-25 normal Not Available [address], [address], 12/20/2022 18:47:33 12/16/19 23 12/20/2022 COMPR EHENS JAIRO METAB OLIC PANEL creatinine 0.80 mg/dL 0.60-1 .29 normal Not Available [address], [address], 12/20/2022 18:47:33 12/16/19 23 12/20/2022 COMPR EHENS JAIRO METAB OLIC PANEL eGFR 111 mL/mi n/1.7 3m2 > or = 60 normal Not Available [address] [address] [place], [address], 12/20/2022 18:47:33 12/16/19 23 12/20/2022 COMPR EHENS JAIRO METAB OLIC PANEL BUN/creatini ne ratio SEE NOTE: (calc ) 6-22 Not Repor jai: BUN and Creat inine are withi n refer ence range . Not Available [address], [address], 12/20/2022 18:47:33 12/16/19 23 12/20/2022 COMPR EHENS JAIRO METAB OLIC PANEL sodium 138 mmol/ L 135-14 6 normal Not Available [address], [address], 12/20/2022 18:47:33 12/16/19 23 12/20/2022 COMPR EHENS JAIRO METAB OLIC PANEL potassium 3.9 mmol/ L 3.5-5. 3 normal Not Available [address], [address], 12/20/2022 18:47:33 12/16/19 23 12/20/2022 COMPR EHENS JAIRO METAB OLIC PANEL chloride 101 mmol/ L 98-110 normal Not Available [address], [address], 12/20/2022 18:47:33 12/16/19 23 12/20/2022 COMPR EHENS JAIRO METAB OLIC PANEL carbon dioxide 31 mmol/ L 20-32 normal Not Available [address], [address], 12/20/2022 18:47:33 12/16/19 23 12/20/2022 COMPR EHENS JAIRO METAB OLIC PANEL calcium 9.4 mg/dL 8.6-10 .3 normal Not Available [address], [address], 12/20/2022 18:47:33 12/16/19 23 12/20/2022 COMPR EHENS JAIRO METAB OLIC PANEL protein, total 6.8 g/dL 6.1-8. 1 normal Not Available [address], [address], 12/20/2022 18:47:33 12/16/19 23 12/20/2022 COMPR EHENS JAIRO METAB OLIC PANEL albumin 4.6 g/dL 3.6-5. 1 normal Not Available [address], [address], 12/20/2022 18:47:33 12/16/19 23 12/20/2022 COMPR EHENS JAIRO METAB OLIC PANEL globulin 2.2 g/dL_ (calc ) 1.9-3. 7 normal Not Available [address], [address], 12/20/2022 18:47:33 12/16/19 23 12/20/2022 COMPR EHENS JAIRO METAB OLIC PANEL albumin/glob ulin ratio 2.1 (calc ) 1.0-2. 5 normal Not Available [address], [address], 12/20/2022 18:47:33 12/16/19 23 12/20/2022 COMPR EHENS JAIRO METAB OLIC PANEL bilirubin, total 0.6 mg/dL 0.2-1. 2 normal Not Available [address], [address], 12/20/2022 18:47:33 12/16/19 23 12/20/2022 COMPR EHENS JAIRO METAB OLIC PANEL alkaline phosphatase 49 U/L 36-130 normal Not Available [address], [address], 12/20/2022 18:47:33 12/16/19 23 12/20/2022 COMPR EHENS JAIRO METAB OLIC PANEL AST 25 U/L 10-40 normal Not Available [address], [address], 12/20/2022 18:47:33 12/16/19 23 12/20/2022 COMPR EHENS JAIRO METAB OLIC PANEL ALT 37 U/L 9-46 normal Not Available [address], [address], 12/20/2022 18:47:33 12/16/19 23 12/20/2022 HEMOG LOBIN A1C hemoglobin A1C 5.5 %_of_ total _HGB <5.7 normal For the purpo se of pretty cid for the prese nce of diabe sid: <5.7% Consi stent with the absen ce of diabe sid 5.7-6 .4% Consi stent with incre ased risk for diabe sid (pred iabet es) > or =6.5% Consi stent with diabe sid This assay resul t is consi stent with a decre ased risk of diabe sid. Curre ntly, no conse nsus exist stewart colin use of hemog lobin A1c for diagn osis of diabe sid in child jose guadalupe. Accor ding to Ameri can Diabe sid Assoc iatio n (ADA) guide lines , hemog lobin A1c <7.0% repre sents optim al contr ol in non-p regna nt diabe tic patie nts. Diffe rent metri cs may apply to speci fic patie nt popul ation s. [facility] in Diabe sid(A DA). Not Available [address] [address] [place], [address], 12/20/2022 18:47:34 12/16/1912/20/2022 T3, FREE T3, free 3.6 pg/mL 2.3-4. 2 normal Not Available [address] [place], [address], 12/20/2022 18:47:35 12/16/19 23 12/20/2022 CBC (INCL UDES DIFF/ PLT) white blood cell count 7.3 thous and/u L 3.8-10 .8 normal Not Available [facility] [address] [place], [address], 12/20/2022 18:47:36 12/16/19 23 12/20/2022 CBC (INCL UDES DIFF/ PLT) red blood cell count 5.16 saman on/uL 4.20-5 .80 normal Not Available [facility] [address] [address] [place], [address], 12/20/2022 18:47:36 12/16/19 23 12/20/2022 CBC (INCL UDES DIFF/ PLT) hemoglobin 15.3 g/dL 13.2-1 7.1 normal Not Available [facility] [address] [place], [address], 12/20/2022 18:47:36 12/16/19 23 12/20/2022 CBC (INCL UDES DIFF/ PLT) hematocrit 47.0 % 38.5-5 0.0 normal Not Available [address], [address], 12/20/2022 18:47:36 12/16/19 23 12/20/2022 CBC (INCL UDES DIFF/ PLT) MCV 91.1 fL 80.0-1 00.0 normal Not Available [address], [address], 12/20/2022 18:47:36 12/16/19 23 12/20/2022 CBC (INCL UDES DIFF/ PLT) MCH 29.7 pg 27.0-3 3.0 normal Not Available [address], [address], 12/20/2022 18:47:36 12/16/19 23 12/20/2022 CBC (INCL UDES DIFF/ PLT) MCHC 32.6 g/dL 32.0-3 6.0 normal Not Available [address], [address], 12/20/2022 18:47:36 12/16/19 23 12/20/2022 CBC (INCL UDES DIFF/ PLT) RDW 13.9 % 11.0-1 5.0 normal Not Available [address], [address], 12/20/2022 18:47:36 12/16/19 23 12/20/2022 CBC (INCL UDES DIFF/ PLT) platelet count 222 thous and/u L 140-40 0 normal Not Available [address], [address], 12/20/2022 18:47:36 12/16/19 23 12/20/2022 CBC (INCL UDES DIFF/ PLT) MPV 9.8 fL 7.5-12 .5 normal Not Available [address], [address], 12/20/2022 18:47:36 12/16/19 23 12/20/2022 CBC (INCL UDES DIFF/ PLT) absolute neutrophils 4460 cells /uL 1500-7 800 normal Not Available [address], [address], 12/20/2022 18:47:36 12/16/19 23 12/20/2022 CBC (INCL UDES DIFF/ PLT) absolute lymphocytes 1993 cells /uL 850-39 00 normal Not Available [address], [address], 12/20/2022 18:47:36 12/16/19 23 12/20/2022 CBC (INCL UDES DIFF/ PLT) absolute monocytes 650 cells /uL 200-95 0 normal Not Available [address], [address], 12/20/2022 18:47:36 12/16/19 23 12/20/2022 CBC (INCL UDES DIFF/ PLT) absolute eosinophils 168 cells /uL 15-500 normal Not Available [address], [address], 12/20/2022 18:47:36 12/16/19 23 12/20/2022 CBC (INCL UDES DIFF/ PLT) absolute basophils 29 cells /uL 0-200 normal Not Available [address], [address], 12/20/2022 18:47:36 12/16/19 23 12/20/2022 CBC (INCL UDES DIFF/ PLT) neutrophils 61.1 % normal Not Available [address], [address], 12/20/2022 18:47:36 12/16/19 23 12/20/2022 CBC (INCL UDES DIFF/ PLT) lymphocytes 27.3 %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
--- OUTSIDE RECORDS SUMMARY | 2024-07-11 07:50 | XMS_ITS | Referral Summary ---
Author Organization [facility] Address [address] [place] [address] Care Team Providers Care Obgyn Hospitalist Physician Name Role Phone Alfredo Jung MD Unavailable [phone] Darinel Cano MD Unavailable [phone] Maria R Anderson Primary Care Pr ovider Encounters Date Type Department Care Team Description 05/27/2024 10:00 AM INFORMATION ASSOC Office Visit [address] [place] [address] Curt Guillen MD Hemorrhoids, unspecified hemorrhoid type (Primary Dx) 05/18/2024 11:00 AM INFORMATION ASSOC - 05/18/2024 12:15 PM INFORMATION ASSOC Surgery [facility] Operating Room [address] [place] [address] Curt Guillen MD HEMORRHOIDECTOMY 05/18/2024 12:29 PM INFORMATION ASSOC Anesthesia Event [facility] Operating Room [address] [place] [address] Mary Escoto MD Reynolds, Ethan Emerson, MD 05/18/2024 9:01 AM INFORMATION ASSOC - 05/18/2024 3:00 PM INFORMATION [facility]OC Hospital Encounter [facility] Operating [address] [place] [address] Curt Guillen MD Hemorrhoids, unspecified hemorrhoid type Discharge Disposition: Discharge to home or self care 05/13/2024 10:55 AM INFORMATION ASSOC Office Visit [address] [place] [address] Curt Guillen MD Hemorrhoids, unspecified hemorrhoid type 04/27/2024 11:13 AM INFORMATION ASSOC Anesthesia Event [address] [address] Virgilio Gayle MD MichelleharveyBrittani allen, CHRISTIAN SCIENCE NURSE 04/27/2024 11:00 AM INFORMATION ASSOC - 04/27/2024 11:30 AM INFORMATION ASSOC Surgery [address] [address] Rajeev Barriga MD COLON REMOVAL SNARE 04/27/2024 9:29 AM INFORMATION ASSOC - 04/27/2024 1:01 PM INFORMATION ASSOC Hospital Encounter [address] [address] Rajeev Barriga MD Family history of colon cancer; Encounter for screening colonoscopy Discharge Disposition: Discharge to home or self care from Last 3 Months Allergies No known active allergies Medications losartan-hydroC [...] 1 tablet (50 mcg total) by mouth change person before breakfast 4 Active testosterone cypionate (DEPO-TESTOTERO NE) 200 mg/mL injection Inject into the muscle as instructed every 14 (fourteen) days Active syringe with needle (BD Luer-Reinier Syringe) 3 mL 25 gauge x 1 syringe Active oxyCODONE-aceta minophen (PERCOCET) 5-325 mg per tabletIndicatio ns:Pain Take 1-2 tablets by mouth every 8 (eight) hours as needed for pain 30 tablet Active Additional Information Patient not taking.Reported on 05/27/2024 docusate sodium (COLACE) 100 mg capsuleIndicati ons:constipatio n Take 1 capsule (100 mg total) by mouth 2 (two) times a day with a glass of water 30 capsule 5 Active Narcan 4 mg/actuation spray,non-aeros ol 0 5 Active amLODIPine (NORVASC) 10 mg tablet Active Active Problems Problem Noted Date Diagnosed Date Hemorrhoids 05/13/2024 Family history of colon cancer 08/21/2023 Encounter for screening colonoscopy 08/21/2023 Social History Tobacco Use Types Packs/Day Years [...] on file Legal Sex Male 10:49 PM INFORMATION ASSOC Gender Identity Not on file Sexual Orientation Not on file Last Filed Vital Signs Vital Sign Reading Time Taken Comments Blood Pressure 127/83 05/27/2024 9:48 AM INFORMATION ASSOC Pulse 82 05/27/2024 9:48 AM INFORMATION ASSOC Temperature 36.2 C (97.1 F) 05/27/2024 9:48 AM INFORMATION ASSOC Respiratory Rate 18 05/18/2024 2:40 PM INFORMATION ASSOC Oxygen Saturation 96% 05/27/2024 9:48 AM INFORMATION ASSOC Inhaled Oxygen Concentration - - Weight 119.3 kg (263 lb) 05/27/2024 9:48 AM INFORMATION ASSOC Height 177.8 cm (5' 10 ) 05/27/2024 9:48 AM INFORMATION ASSOC Body Mass Index 37.74 05/27/2024 9:48 AM INFORMATION ASSOC Plan of Treatment Not on file Procedures Procedure Name Priority Date/Time Associated Diagnosis Comments SURGICAL PATHOLOGY Routine 05/18/2024 2: 11 PM INFORMATION ASSOC Hemorrhoids, unspecified hemorrhoid type RI AN ELECTIVE ENDOTRACHEAL AIRWAY Routine 05/18/2024 12:45 PM INFORMATION ASSOC HEMORRHOIDECTOMY 05/18/2024 12:1 3 PM INFORMATION ASSOC Hemorrhoids, unspecified hemorrhoid type POTASSIUM, WHOLE BLOOD STAT 9:30 AM INFORMATION ASSOC SURGICAL PATHOLOGY STAT 04/27/2024 1: 35 PM INFORMATION ASSOC Family history of colon cancer Encounter for screening colonoscopy ENDO ADD ON COLON INJECTION SUBMUCOSAL 04/27/2024 11:08 AM INFORMATION ASSOC Family history of colon cancer Encounter for screening colonoscopy COLON REMOVAL SNARE 04/27/2024 1 1:08 AM INFORMATION ASSOC Family history of colon cancer Encounter for screening colonoscopy COLONOSCOPY 04/27/2024 9:43 AM INFORMATION ASSOC from Last 3 Months Results * Surgical pathology (05/18/2024 2:11 PM INFORMATION ASSOC) Tissue specimen (specimen) (Hemorrhoid/Anal Tag) 05/18/2024 1:05 PM INFORMATION ASSOC Tissue specimen (specimen) (Hemorrhoid/Anal Tag) 05/18/2024 1:11 PM INFORMATION ASSOC Tissue specimen (specimen) (Hemorrhoid/Anal Tag) 05/18/2024 1:21 PM INFORMATION ASSOC Narrative PATHOLOGY [facility] ([facility]) - 05/19/2024 11:50 AM INFORMATION ASSOC EPIC results best viewed via link to PDF [facility] Department of Pathology [address] [place], [place] [id number] Note to Patients: This report may contain [...] Final Report Patient Name: PROSPER HERNANDEZ Address: [address] [place] [address] Gender: M : 1975 (Age: 48) Service: Surgery [facility] Hospital #: [id number] Patient Type: [facility] Taken: 05/18/2024 Received: 05/18/2024 Accessioned: 05/18/2024 Reported: [...] vascular prominence consistent with hemorrhoid formation Charlotte Ngo M.D. Report Electronically Reviewed and Signed Out By Charlotte Ngo M.D. 05/19/2024 11:50:59 Specimen(s) Received: A: Right posterior hemorrhoid B: Right anterior hemorrhoid C: Left lateral hemorrhoid Microscopic Description: Microscopic examination corroborates the diagnosis. Clinical History: Hemorrhoids. Hemorrhoidectomy. Gross Description: The specimen is submitted in three formalin containers labeled PROSPER HERNANDEZ . A. The first container is labeled right [...] cut surface measuring 2.0. Represented in C Norman Phelps R.N., P.Hira./Ronal Shah M.D. REPORT IMAGES AND SCANNED DOCUMENTS, IF INCLUDED, ONLY VIEWABLE IN PDF VERSION OF REPORT The performance characteristics of some immunohistochemical stains, fluorescence in-situ hybridization tests and immunophenotyping by flow cytometry cited in this report (if any) were determined by the Surgical Pathology Department at [facility] as part of an ongoing fiberglass quality technician program and in compliance with federally mandated [...] characteristics determined by the Surgical Pathology Department [facility]. It has not been cleared or approved by the U. S. Food and Drug Administration. Note for decalcified specimens: This assay has not been validated on decalcified tissues. Results should be interpreted with caution given the possibility of false negativity on decalcified specimens Curt Guillen MD LAB PATHOLOGY ORDER MICHELLE Final Result PATHOLOGY [facility] [address] [place] [id number] * RI AN ELECTIVE ENDOTRACHEAL AIRWAY (05/18/2024 12:45 PM INFORMATION ASSOC) Narrative Jin Bautista CRNA - 05/18/2024 12:45 PM INFORMATION ASSOC Jin Bautista CRNA 05/18/2024 12:45 PM Airway Patient location: OR Urgency: elective Indications for airway management: anesthesia and airway protection Difficult airway: no Staff: Supervising provider: Mary Escoto MD Placed by: CHRISTIAN SCIENCE NURSE: Jin Bautista CRNA Emergent airway documentation: Risks [...] * Potassium, whole blood (05/18/2024 9:30 AM INFORMATION ASSOC) Potassium, bld 3.8 3.3 - 4.9 mmol/L Comment: Interpretive Data This method is not able to assess for hemolysis, which may falsely increase potassium concentrations. If further testing is needed to evaluate this result, consider in-laboratory plasma potassium. Current Interpretive Data was last revised on 2021. Blood 05/18/2024 9:30 AM INFORMATION ASSOC 05/18/2024 9:31 AM INFORMATION ASSOC us Virgilio Gayle MD LAB BLOOD ORDERABLES F inal Result [facility] ([address] Department [place] [address] * Surgical pathology (04/27/2024 1:35 PM INFORMATION ASSOC) Tissue specimen (specimen) (Polyp(s), colon/colorectal, esophageal, gastric) 04/27/2024 11:39 AM INFORMATION ASSOC Tissue specimen (specimen) (Polyp(s), colon/colorectal, esophageal, gastric) 04/27/2024 11:43 AM INFORMATION ASSOC Tissue specimen (specimen) (Polyp(s), colon/colorectal, esophageal, gastric) 04/27/2024 12:05 PM INFORMATION ASSOC Narrative PATHOLOGY [facility] (SPURGEON) - 04/29/2024 12:29 PM INFORMATION ASSOC EPIC results best viewed via link to PDF [facility] Department of Pathology [address] [place] [id number] Note to Patients: This report may contain [...] Final Report Patient Name: PROSPER HERNANDEZ Address: [address] [place] [address] Gender: M : 1975 (Age: 48) Service: Gastro Location: [facility] Hospital #: [id number] Patient Type: [facility] Taken: 04/27/2024 Received: 04/28/2024 Accessioned: 04/28/2024 Reported: [...] submitted in three formalin containers labeled PROSPER GONZALEZ . A. The first container is labeled [...] Inked and bisected. All in C. T.A. Luca Phelps P.A./Charlotte Ngo M.D. REPORT IMAGES AND SCANNED DOCUMENTS, IF INCLUDED, ONLY VIEWABLE IN PDF VERSION OF REPORT The performance characteristics of some immunohistochemical stains, fluorescence in-situ hybridization tests and immunophenotyping by flow cytometry cited in this report (if any) were determined by the Surgical Pathology Department at [facility] as part of an ongoing fiberglass quality technician program and in compliance with federally mandated [...] characteristics determined by the Surgical Pathology Department [facility]. It has not been cleared or approved by the U. S. Food and Drug Administration. Note for decalcified specimens: This assay has not been validated on decalcified tissues. Results should be interpreted with caution given the possibility of false negativity on decalcified specimens Rajeev Barriga MD LAB PATHOLOGY ORDERABLES Final R esult PATHOLOGY [facility] (SPURGEON) [address] [place], [place] [id number] * Colonoscopy (04/27/2024 9:43 AM INFORMATION ASSOC) Anatomical Region Laterality Modality Other Narrative Procedure Note Rajeev Barriga MD - 04/27/2024 9:43 AM CST [facility] Patient Name: Prosper Hernandez Procedure Date: 04/27/2024 9:43 AM Date of : 1975 Admit Type: Outpatient Age: 48 Gender: Male Attending MD: Rajeev Barriga M.D. Room: [facility] ENDOSCOPY ROOM 3 Note Status: Finalized Patient [...] retrieved. Injected. Clips(MR conditional) were placed. Clip hearing aid repair technician: [employer]. - Diverticulosis in the sigmoid colon and [...] procedure were verified by the physician, the drawer fitter and the entry level installation technician in the endoscopy suite. Mental Status [...] scope was passed under direct vision. TheColonoscope [id number] was introduced through the anus and advanced [...] hemostatic clips were successfully placed(MR conditional). Clip hearing aid repair technician: [employer]. There was no bleeding at the end of the procedure. Multiple small and large-mouthed diverticula were found in thesigmoid colon and ascending colon. External and internal hemorrhoids were found during retroflexion. Rajeev Barriga M.D. 04/27/2024 12:14:38 PM Number of Addenda: 0 Note Initiated On: 04/27/2024 9:43 AM Procedure Code(s): --- Professional --- 79977, Colonoscopy, flexible; with removal of tumor(s), polyp(s), or other lesion(s) by snare technique 32705, Colonoscopy, flexible; with directed submucosal injection(s),any substance --- Technical --- 35258, Colonoscopy, flexible; with removal of tumor(s), polyp(s), or other lesion(s) by snare technique 42680, Colonoscopy, flexible; with directed submucosal injection(s),any substance [...] perforation orabscess without bleeding CPT copyright 2020 [employer]. All rights reserved. The codes documented in this report are preliminary and upon library assistant reviewmay be revised to meet current compliance requirements. Recognized by the [employer] for promoting quality in endoscopy Rajeev Barriga MD ENDOSCOPY PROCEDURES Final Resul t from Last 3 Months Insurance [employer] [address] Advance Directives For more information, please contact: [phone] * Full Code (Latest Code Status on File) Date Activated Date Inactivated Comments 04/27/2024 9:45 AM 04/27/2024 5:06 PM * Full Code Date Activated Date Inactivated Comments 04/27/2024 9:45 AM 04/27/2024 9:45 AM Care Teams Obgyn Hospitalist Physician Relationship Specialty Start Date End Date Maria R Anderson PA [address] [facility] [phone] [place] [address] PCP - General Physician Pool Table Operator 05/31/23 Alfredo Jung MD [address] [address] Referring Physician Vascular Surgery 04/18/23 Darinel Cano MD [address] [facility] [phone] [place] [address] Surgeon Colon and Rectal Surgery 05/31/23
--- OUTSIDE RECORDS SUMMARY | 2024-07-11 07:50 | XMS_ITS | Continuity of Care Document ---
Author Organization [facility] Address [address] [place] [address] [place] [address] Phone Care Team Providers Care Senior Energy Analyst Name Role Phone Unavailable Unavailable Unavailable Advance Directives Directive Yes / No Effective Date File Name No Information Encounters Encounter Description Practice Location Reason(s) For Visit Diagnoses Date Provider Providers Copied on Encounter [facility], [address], [place], [place], [id number], [place] tel:[phone] [facility] [place] No Information 9-200 0 No Information Family History Family Member Type Diagnosis Age At Onset No Information Payers Payer name Insurance type Covered green party ID Authoriza tion(s) Workers Compensation [id number] Social History Type Description Quantity Date Captured Comments Sex Male Smoking Status No Information Chief Complaint And Reason For Visit No Information Reason For Referral Reason For Referral No Information History Of Present Illness Encounter Date Complaint History Of Prese nt Illness No Information Functional Status Date Functional Assessmen t No Information Instructions Date Instruction Additional Infor mation No Information Assessments Type Assessment Date No Information Patient Care Teams Name Effective Dates (start - stop) Status Members No Information
--- OUTSIDE RECORDS SUMMARY | 2024-07-11 07:50 | XMS_ITS | Clinical Summary ---
Author Organization [facility] Address [address] [place] [address] Phone Care Team Providers Care Software Project Lead Name Role Phone Unavailable Primary Care Provider Unavailabl e Social History Tobacco Use Types Packs/Day Years Used Date Smoking Tobacco: Never Assessed Sex and Gender Information Value Date Recorded Sex Assigned at Not on file Legal Sex Male 2:22 PM DISABILITY RATER Gender Identity Not on file Sexual Orientation Not on file Plan of Treatment Not on file
--- OUTSIDE RECORDS SUMMARY | 2024-07-11 07:50 | XMS_ITS | CONTINUITY OF CARE DOCUMENT ---
Author Name jesuscarmenlauren Address Unknown Organization [facility] Address [id number] [place] [address] [address] [place] [address] Phone [phone] Care Team Providers Care Pharmacy Data Analyst Name Role Phone Maikol DE LUNA, Pauline Unavailable JEFFREY PEREZ MD Unavailable [phone] INSURANCE PROVIDERS Payer name Policy type / Coverage type [place] red green party ID [facility] Blue [facility] [id number]
== END 2024-07-11 07:47 | disposition home or self-care (01) ==
PROVIDERS: PCP Physician Assistant; Visit Provider Physician Assistant
DX: R91.1 Solitary pulmonary nodule (principal)
CPT/HCPCS: 71250

== ENCOUNTER 2024-07-20 17:01 | Outpatient (CLI) | payer BC, SELFPAY ==
--- NOTE | ~2024-07-20 | US_ITS ---
EXAMINATION: US soft tissue UE RT DATE: 07/20/2024 17:30 INDICATION: Subcutaneous mass at the palmar aspect of the right forearm TECHNIQUE: Multiple grayscale and Doppler ultrasound images of the region of concern at the right for earm were obtained. COMPARISON: None FINDINGS: There is a 2.5 x 1.9 x 1.2 cm ovoid mass with smooth margins and without evident internal vascularity on color Doppler along the superficial fascia of the musculature at the volar/ulnar aspect of the ri ght forearm. The mass is partially solid hyperechoic with fine echotexture with 1.5 x 1.4 to 0.8 cm o void anechoic region containing multiple coarse echogenic and shadowing calcifications. IMPRESSION: 1. 2.5 x 1.9 x 1.2 cm complex mixed solid and cystic mass with coarse calcifications in the deep subc utaneous tissues at the volar/ulnar right forearm. Imaging findings are nonspecific but would be cons istent with fat necrosis. Or potentially phleboliths within a focally dilated vessel with surrounding inflammation. Consider pre and postcontrast MRI for further evaluation. Reviewed, dictated and finalized at location A. IMPRESSION: 1. 2.5 x 1.9 x 1.2 cm complex mixed solid and cystic mass with coarse calcifica tions in the deep subcutaneous tissues at the volar/ulnar right forearm. Imagin g findings are nonspecific but would be consistent with fat necrosis. Or potent ially phleboliths within a focally dilated vessel with surrounding inflammation . Consider pre and postcontrast MRI for further evaluation.
--- OUTSIDE RECORDS SUMMARY | 2024-07-20 18:06 | XMS_ITS | Clinical Summary ---
Author Organization [facility] Address [address] [place] [address] Care Team Providers Care Permastone Installer Name Role Phone Alfredo Jung MD Unavailable [phone] Darinel Cano MD Unavailable [phone] Maria R Anderson Primary [facility] Pr [...] 1 tablet (50 mcg total) by mouth accounting analyst before breakfast 4 Active testosterone cypionate (DEPO-TESTOTERO [...] Department Care Team Description 05/27/2024 10:00 AM MECHANICAL PIPING DESIGNER Office Visit [facility] [address] [place] [address] [address] [place] [address] Curt Guillen MD Hemorrhoids, unspecified hemorrhoid type (Primary Dx) 05/18/2024 12:29 PM MECHANICAL PIPING DESIGNER Anesthesia Event [facility] [address] [place] [address] Mary Escoto MD Reynolds, Ethan Emerson, MD 05/18/2024 11:00 AM MECHANICAL PIPING DESIGNER - 05/18/2024 12:15 PM MECHANICAL PIPING DESIGNER Surgery [facility] [address] [place] [address] Curt Guillen MD HEMORRHOIDECTOMY 05/18/2024 9:01 AM MECHANICAL PIPING DESIGNER - 05/18/2024 3:00 PM MECHANICAL PIPING DESIGNER Hospital Encounter [facility] [address] [place] [address] Curt Guillen MD Hemorrhoids, unspecified hemorrhoid type Discharge Disposition: Discharge to home or self care 05/13/2024 10:55 AM MECHANICAL PIPING DESIGNER Office Visit [address] [place] [address] Curt Guillen MD Hemorrhoids, unspecified hemorrhoid type 04/27/2024 11:13 AM MECHANICAL PIPING DESIGNER Anesthesia Event [address] [address] Virgilio Gayle MD Reinersman, Chelsea Couch, CRNA 04/27/2024 11:00 AM MECHANICAL PIPING DESIGNER - 04/27/2024 11:30 AM MECHANICAL PIPING DESIGNER Surgery [address] [address] Rajeev Barriga MD COLON REMOVAL SNARE 04/27/2024 9:29 AM MECHANICAL PIPING DESIGNER - 04/27/2024 1:01 PM MECHANICAL PIPING DESIGNER Hospital Encounter [address] [address] Rajeev Barriga MD Family history of colon [...] on file Legal Sex Male 10:49 PM MECHANICAL PIPING DESIGNER Gender Identity Not on file Sexual Orientation Not on file Obstetrics History Last Filed Vital Signs Vital Sign Reading Time Taken Comments Blood Pressure 127/83 05/27/2024 9:48 AM MECHANICAL PIPING DESIGNER Pulse 82 05/27/2024 9:48 AM MECHANICAL PIPING DESIGNER Temperature 36.2 C (97.1 F) 05/27/2024 9:48 AM MECHANICAL PIPING DESIGNER Respiratory Rate 18 05/18/2024 2:40 PM MECHANICAL PIPING DESIGNER Oxygen Saturation 96% 05/27/2024 9:48 AM MECHANICAL PIPING DESIGNER Inhaled Oxygen Concentration - - Weight 119.3 kg (263 lb) 05/27/2024 9:48 AM MECHANICAL PIPING DESIGNER Height 177.8 cm (5' 10 ) 05/27/2024 9:48 AM MECHANICAL PIPING DESIGNER Body Mass Index 37.74 05/27/2024 9:48 AM MECHANICAL PIPING DESIGNER Plan of Treatment Health Maintenance Due Date [...] SURGICAL PATHOLOGY Routine 05/18/2024 2: 11 PM MECHANICAL PIPING DESIGNER Hemorrhoids, unspecified hemorrhoid type [place] AN ELECTIVE ENDOTRACHEAL AIRWAY Routine 05/18/2024 12:45 PM MECHANICAL PIPING DESIGNER HEMORRHOIDECTOMY 05/18/2024 12:1 3 PM MECHANICAL PIPING DESIGNER Hemorrhoids, unspecified hemorrhoid type POTASSIUM, WHOLE BLOOD STAT 9:30 AM MECHANICAL PIPING DESIGNER SURGICAL PATHOLOGY STAT 04/27/2024 1: 35 PM MECHANICAL PIPING DESIGNER Family history of colon cancer Encounter for screening colonoscopy ENDO ADD ON COLON INJECTION SUBMUCOSAL 04/27/2024 11:08 AM MECHANICAL PIPING DESIGNER Family history of colon cancer Encounter for screening colonoscopy COLON REMOVAL SNARE 04/27/2024 1 1:08 AM MECHANICAL PIPING DESIGNER Family history of colon cancer Encounter for screening colonoscopy COLONOSCOPY 04/27/2024 9:43 AM MECHANICAL PIPING DESIGNER from Last 3 Months Results * Surgical pathology (05/18/2024 2:11 PM MECHANICAL PIPING DESIGNER) Tissue specimen (specimen) (Hemorrhoid/Anal Tag) 05/18/2024 1:05 PM MECHANICAL PIPING DESIGNER Tissue specimen (specimen) (Hemorrhoid/Anal Tag) 05/18/2024 1:11 PM MECHANICAL PIPING DESIGNER Tissue specimen (specimen) (Hemorrhoid/Anal Tag) 05/18/2024 1:21 PM MECHANICAL PIPING DESIGNER Narrative PATHOLOGY [facility] - 05/19/2024 11:50 AM MECHANICAL PIPING DESIGNER EPIC results best viewed via link to PDF [facility] Department of Pathology [address] [place] [address] Note to Patients: This report may contain [...] Final Report Patient Name: PROSPER HERNANDEZ Address: [address] [place] [address] Gender: M : 1975 (Age: 48) Service: Surgery Location: [facility] Hospital #: [id number] Patient Type: [facility] Taken: 05/18/2024 Received: 05/18/2024 Accessioned: 05/18/2024 Reported: [...] determined by the Surgical Pathology Department at [facility] as part of an ongoing software quality manager program and in compliance with federally mandated [...] determined by the Surgical Pathology Department [facility]. It has not been cleared or approved by the U. S. Food and Drug Administration. Note for decalcified specimens: This assay has not been validated on decalcified tissues. Results should be interpreted with caution given the possibility of false negativity on decalcified specimens Curt Guillen MD LAB PATHOLOGY ORDER MICHELLE Final Result PATHOLOGY [facility] ([facility] [address] [place] [address] * [place] AN ELECTIVE ENDOTRACHEAL AIRWAY (05/18/2024 12:45 PM MECHANICAL PIPING DESIGNER) Narrative Jin Bautista CRNA - 05/18/2024 12:45 PM MECHANICAL PIPING DESIGNER Jin aButista CRNA 05/18/2024 12:45 PM Airway Patient location: OR Urgency: elective Indications for airway management: anesthesia and airway protection Difficult airway: no Staff: Supervising provider: Mary Escoto MD Placed by: HOT TAR ROOFER: Jin Bautista CRNA Emergent airway documentation: Risks [...] * Potassium, whole blood (05/18/2024 9:30 AM MECHANICAL PIPING DESIGNER) Potassium, bld 3.8 3.3 - 4.9 mmol/L Comment: Interpretive Data This method is not able to assess for hemolysis, which may falsely increase potassium concentrations. If further testing is needed to evaluate this result, consider in-laboratory plasma potassium. Current Interpretive Data was last revised on 2021. Blood 05/18/2024 9:30 AM MECHANICAL PIPING DESIGNER 05/18/2024 9:31 AM MECHANICAL PIPING DESIGNER us Virgilio Gayle MD LAB BLOOD ORDERABLES F inal Result SUZANNE [facility] [address] [place] [address] Department [place] [address] * Surgical pathology (04/27/2024 1:35 PM MECHANICAL PIPING DESIGNER) Tissue specimen (specimen) (Polyp(s), colon/colorectal, esophageal, gastric) 04/27/2024 11:39 AM MECHANICAL PIPING DESIGNER Tissue specimen (specimen) (Polyp(s), colon/colorectal, esophageal, gastric) 04/27/2024 11:43 AM MECHANICAL PIPING DESIGNER Tissue specimen (specimen) (Polyp(s), colon/colorectal, esophageal, gastric) 04/27/2024 12:05 PM MECHANICAL PIPING DESIGNER Narrative PATHOLOGY [facility] - 04/29/2024 12:29 PM MECHANICAL PIPING DESIGNER EPIC results best viewed via link to PDF [facility] Department of Pathology [address] [place] [id number] Note to Patients: This report may contain [...] Final Report Patient Name: PROSPER HERNANDEZ Address: [address] [place] [address] Gender: M : 1975 (Age: 48) Service: Gastro Location: [facility] Hospital #: [id number] Patient Type: [facility] Taken: 04/27/2024 Received: 04/28/2024 Accessioned: 04/28/2024 Reported: [...] determined by the Surgical Pathology Department at [facility] as part of an ongoing software quality manager program and in compliance with federally mandated [...] determined by the Surgical Pathology Department [facility]. It has not been cleared or approved by the U. S. Food and Drug Administration. Note for decalcified specimens: This assay has not been validated on decalcified tissues. Results should be interpreted with caution given the possibility of false negativity on decalcified specimens Rajeev Barriga MD LAB PATHOLOGY ORDERABLES Final R esult PATHOLOGY [facility] [address] [place] [id number] * Colonoscopy (04/27/2024 9:43 AM MECHANICAL PIPING DESIGNER) Anatomical Region Laterality Modality Other Narrative Procedure Note Rajeev Barriga MD - 04/27/2024 9:43 AM CST [facility] Patient Name: Prosper Hernandez Procedure Date: 04/27/2024 9:43 AM Date of : 1975 Admit Type: Outpatient Age: 48 Gender: Male Attending MD: Rajeev Barriga M.D. Room: [facility] ENDOSCOPY ROOM 3 Note Status: Finalized Patient [...] retrieved. Injected. Clips(MR conditional) were placed. Clip supervisor dry cleaning: [place]. - Diverticulosis in the sigmoid colon and [...] procedure were verified by the physician, the natural resource technician and the mobile sales technician in the endoscopy suite. Mental Status [...] scope was passed under direct vision. TheColonoscope [id number] was introduced through the anus and advanced [...] hemostatic clips were successfully placed(MR conditional). Clip supervisor dry cleaning: [place]. There was no bleeding at the end of the procedure. Multiple small and large-mouthed diverticula were found in thesigmoid colon and ascending colon. External and internal hemorrhoids were found during retroflexion. Rajeev Barriga M.D. 04/27/2024 12:14:38 PM Number of Addenda: 0 Note Initiated On: 04/27/2024 9:43 AM Procedure Code(s): --- Professional --- 87888, Colonoscopy, flexible; with removal of tumor(s), polyp(s), or other lesion(s) by snare technique 34543, Colonoscopy, flexible; with directed submucosal injection(s),any substance --- Technical --- 86677, Colonoscopy, flexible; with removal of tumor(s), polyp(s), or other lesion(s) by snare technique 27122, Colonoscopy, flexible; with directed submucosal injection(s),any substance [...] perforation orabscess without bleeding CPT copyright 2020 [employer]. All rights reserved. The codes documented in this report are preliminary and upon consumer safety inspector reviewmay be revised to meet current compliance requirements. Recognized by the [employer] for promoting quality in endoscopy Rajeev Barriga MD ENDOSCOPY PROCEDURES Final Resul t from Last 3 Months Insurance GroupCard OR GroupCard OR Advance Directives For more information, please contact: [phone] * Full Code (Latest Code Status on File) Date Activated Date Inactivated Comments 04/27/2024 9:45 AM 04/27/2024 5:06 PM * Full Code Date Activated Date Inactivated Comments 04/27/2024 9:45 AM 04/27/2024 9:45 AM Care Teams Permastone Installer Relationship Specialty Start Date End Date Maria R Anderson PA [phone] [place] [address] PCP - General Physician Woodworking Bench Carpenter 05/31/23 Alfredo Jung MD [address] [place] [address] Referring Physician Vascular Surgery 04/18/23 Darinel Cano MD [phone] [place] [address] Surgeon Colon and Rectal Surgery 05/31/23
--- OUTSIDE RECORDS SUMMARY | 2024-07-20 18:06 | XMS_ITS | CONTINUITY OF CARE DOCUMENT ---
Author Name jesuscarmenlauren Address Unknown Organization [facility] Address [address] [place] [address] [address] [place] [address] Phone [phone] Care Team Providers Care Truck Washer Name Role Phone Maikol DE LUNA, Pauline Unavailable JEFFREY PEREZ MD Unavailable [phone] INSURANCE PROVIDERS Payer name Policy type / Coverage type [place] red green party ID [facility] [id number]
--- OUTSIDE RECORDS SUMMARY | 2024-07-20 18:06 | XMS_ITS | Continuity of Care Document ---
Author Organization [facility] Address [address] [place] [address] [place] [address] Phone Care Team Providers Care Hog Sticker Name Role Phone Unavailable Unavailable Unavailable Advance Directives Directive Yes / No Effective Date File Name No Information Encounters Encounter Description Practice Location Reason(s) For Visit Diagnoses Date Provider Providers Copied on Encounter [facility], [address], [place], [place], [id number], [place] tel:[phone] [facility] [place] No Information [phone] No Information Family History Family Member Type Diagnosis Age At Onset No Information Payers Payer name Insurance type Covered constitution party ID Authoriza tion(s) Workers Compensation [id number] Social History Type Description Quantity Date Captured [...]
--- OUTSIDE RECORDS SUMMARY | 2024-07-20 18:06 | XMS_ITS | Clinical Summary ---
Author Organization [facility] Address [address] [place] [address] Phone Care Team Providers Care Body Technician/Painter Name Role Phone Unavailable Primary Care Provider Unavailabl e Social History Tobacco Use Types Packs/Day Years Used Date Smoking Tobacco: Never Assessed Sex and Gender Information Value Date Recorded Sex Assigned at Not on file Legal Sex Male 2:22 PM ER TECH Gender Identity Not on file Sexual Orientation Not on file Plan of Treatment Not on file
--- OUTSIDE RECORDS SUMMARY | 2024-07-20 18:06 | XMS_ITS | Data Portability ---
Author Organization [facility] [employer], Main Office Address [address] [place] [address] Assessment No assessment recorded. Plan of Treatment Reminders Order Date Submit Date Provider Last Modified By Organization Details Last Modified Time Details Appointments None recorded. Lab HbA1c (hemoglob in A1c), blood 2022 023 Bitly [facility], [address], [address], [place], [address], 3 18:47:34 testoster one, free + total, serum 2022 023 Bitly [facility], [address], [address], [place], [address], 3 18:47:40 CBC w/ auto diff 2022 023 Bitly [facility], [address], [address], [place], [address], 3 18:47:36 CMP, serum or plasma 2022 023 Bitly [facility], [address], [address], [place], [address], 3 18:47:33 urinalysi s, dipstick, reflex micro 2022 023 Bitly [facility], [address], [address], [place], [address], 3 18:47:37 vitamin B12 + folate, serum or blood 2022 023 [email or web address] [facility], [address], [address], [place], [address], 3 18:47:38 lipid panel, serum 2022 023 [facility]LA[facility]ineris [facility], [address], [address], [place], [address], 3 18:47:32 PSA, serum or plasma 2022 023 [facility], [address], [address], [place], [address], 3 18:47:39 TSH + free T4, serum 2022 023 [facility], [address], [address], [place], [address], 3 18:47:30 T3, free, serum or plasma 2022 023 [facility], [address], [address], [place], [address], 3 18:47:35 Referral otolaryng ologist referral 2022 023 [email or web address] [facility] ([facility]), [address] [facility] , [address], [place], [address], 4 17:47:23 Procedures None recorded. Surgeries None recorded. Imaging None recorded. Medication Orders None recorded. Patient TargetsNo targets recorded. Patient InstructionsNo instructions recorded. 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 com/f aq/To Chucho hart LCMSM S (This link is being provi ded for infor matio nal/e ducat ional purpo ses only. ) (Note ) This test was devel oped and its harpreet tical perfo rmanc e kaleb cteri stics have been deter mined by [employer]. It has not been clear ed or appro rebeca by the FDA. This assay has been valid ated pursu ant to the CLIA regul ation s and is used for clini nathalie purpo ses. MDF med fusio n [address] [facility] [address] [facility] [address] [phone] César meek MD Not Available [facility] [address] [place], [address], 11/25/2021 10:10:41 11/23/19 22 11/25/2021 PSA, TOTAL [...] the prese nce or absen ce of [facility]. Not Available [address], [address], 11/25/2021 10:10:40 11/23/19 22 11/25/2021 URINA LYSIS , COMPL ETE color dark yellow yellow normal Not Available [address], [address], 11/25/2021 10:10:40 11/23/19 22 11/25/2021 URINA LYSIS , COMPL ETE appearance cloudy clear abnormal Not Available [address], [address], 11/25/2021 10:10:40 11/23/19 22 11/25/2021 URINA LYSIS , COMPL ETE specific gravity 1.030 1.001- 1.035 normal Not Available [address], [address], 11/25/2021 10:10:40 11/23/19 22 11/25/2021 URINA LYSIS , COMPL ETE pH < or = 5.0 5.0-8. 0 normal Not Available [address], [address], 11/25/2021 10:10:40 11/23/19 22 11/25/2021 URINA LYSIS , COMPL ETE glucose negati ve negati ve normal Not Available [address], [address], 11/25/2021 10:10:40 11/23/19 22 11/25/2021 URINA LYSIS , COMPL ETE bilirubin negati ve negati ve normal Not Available [address], [address], 11/25/2021 10:10:40 11/23/19 22 11/25/2021 URINA LYSIS , COMPL ETE ketones negati ve negati ve normal Not Available [address], [address], 11/25/2021 10:10:40 11/23/19 22 11/25/2021 URINA LYSIS , COMPL ETE occult blood negati ve negati ve normal Not Available [address], [address], 11/25/2021 10:10:40 11/23/19 22 11/25/2021 URINA LYSIS , COMPL ETE protein trace negati ve abnormal Not Available [address], [address], 11/25/2021 10:10:40 11/23/19 22 11/25/2021 URINA LYSIS , COMPL ETE nitrite negati ve negati ve normal Not Available [address], [address], 11/25/2021 10:10:40 11/23/19 22 11/25/2021 URINA LYSIS , COMPL ETE leukocyte esterase negati ve negati ve normal Not Available [address], [address], 11/25/2021 10:10:40 11/23/19 22 11/25/2021 URINA LYSIS , COMPL ETE bacteria none seen /hpf none seen normal Not Available [address], [address], 11/25/2021 10:10:40 11/23/19 22 11/25/2021 URINA LYSIS , COMPL ETE WBC 0-5 /hpf < or = 5 normal Not Available [address], [address], 11/25/2021 10:10:40 11/23/19 22 11/25/2021 URINA LYSIS , COMPL ETE RBC 0-2 /hpf < or = 2 normal Not Available [facility] [address] [address] [place], [address], 11/25/2021 10:10:40 11/23/19 22 11/25/2021 URINA LYSIS , COMPL ETE squamous epithelial cells 0-5 /hpf < or = 5 Not Available [facility] [address] [place], [address], 11/25/2021 10:10:40 11/23/19 22 11/25/2021 URINA LYSIS , COMPL ETE hyaline cast none seen /lpf none seen normal Not Available [facility] [address] [address] [place], [address], 11/25/2021 10:10:40 11/23/19 22 11/25/2021 HEMOG LOBIN [...] Diabe sid(A DA). Not Available [facility] [address] [address], [place], [address], 11/25/2021 10:10:38 11/23/19 22 11/25/2021 COMPR EHENS JAIRO METAB OLIC PANEL glucose 112 mg/dL 65-99 high Fasti ng refer ence inter sly For someo ne witho ut known diabe sid, a gluco se value betwe en 100 and 125 mg/dL is consi stent with predi abete s and shoul d be confi rmed with a follo w-up test. Not Available [facility] [address] [address] [place], [address], 11/25/2021 10:10:37 11/23/19 22 11/25/2021 COMPR EHENS JAIRO METAB OLIC PANEL urea nitrogen (BUN) 18 mg/dL 7-25 normal Not Available [facility] [address], [address], 11/25/2021 10:10:37 11/23/19 22 11/25/2021 COMPR EHENS JAIRO METAB OLIC PANEL creatinine 0.76 mg/dL 0.60-1 .29 normal Not Available [facility] [address] [address] [place], [address], 11/25/2021 10:10:37 11/23/19 22 11/25/2021 COMPR EHENS [...] kdoqi /gfr% 5Fcal culat or Not Available [facility] [address] [address] [place], [address], 11/25/2021 10:10:37 11/23/19 22 11/25/2021 COMPR EHENS JAIRO METAB OLIC PANEL BUN/creatini ne ratio not applic able (calc ) 6-22 Not Available [facility] [address] [address] [place], [address], 11/25/2021 10:10:37 11/23/19 22 11/25/2021 COMPR EHENS JAIRO METAB OLIC PANEL sodium 141 mmol/ L 135-14 6 normal Not Available [address], [address], 11/25/2021 10:10:37 11/23/19 22 11/25/2021 COMPR EHENS JAIRO METAB OLIC PANEL potassium 3.8 mmol/ L 3.5-5. 3 normal Not Available [address], [address], 11/25/2021 10:10:37 11/23/19 22 11/25/2021 COMPR EHENS JAIRO METAB OLIC PANEL chloride 104 mmol/ L 98-110 normal Not Available [address], [address], 11/25/2021 10:10:37 11/23/19 22 11/25/2021 COMPR EHENS JAIRO METAB OLIC PANEL carbon dioxide 24 mmol/ L 20-32 normal Not Available [address], [address], 11/25/2021 10:10:37 11/23/19 22 11/25/2021 COMPR EHENS JAIRO METAB OLIC PANEL calcium 9.2 mg/dL 8.6-10 .3 normal Not Available [address], [address], 11/25/2021 10:10:37 11/23/19 22 11/25/2021 COMPR EHENS JAIRO METAB OLIC PANEL protein, total 6.8 g/dL 6.1-8. 1 normal Not Available [address], [address], 11/25/2021 10:10:37 11/23/19 22 11/25/2021 COMPR EHENS JAIRO METAB OLIC PANEL albumin 4.6 g/dL 3.6-5. 1 normal Not Available [address] [address] [place], [address], 11/25/2021 10:10:37 11/23/19 22 11/25/2021 COMPR EHENS JAIRO METAB OLIC PANEL globulin 2.2 g/dL_ (calc ) 1.9-3. 7 normal Not Available [address] [address] [place], [address], 11/25/2021 10:10:37 11/23/19 22 11/25/2021 COMPR EHENS JAIRO METAB OLIC PANEL albumin/glob ulin ratio 2.1 (calc ) 1.0-2. 5 normal Not Available [address] [address] [place], [address], 11/25/2021 10:10:37 11/23/19 22 11/25/2021 COMPR EHENS JAIRO METAB OLIC PANEL bilirubin, total 0.6 mg/dL 0.2-1. 2 normal Not Available [address] [address] [place], [address], 11/25/2021 10:10:37 11/23/19 22 11/25/2021 COMPR EHENS JAIRO METAB OLIC PANEL alkaline phosphatase 51 U/L 36-130 normal Not Available [address] [address] [place], [address], 11/25/2021 10:10:37 11/23/19 22 11/25/2021 COMPR EHENS JAIRO METAB OLIC PANEL AST 25 U/L 10-40 normal Not Available [address] [address] [place], [address], 11/25/2021 10:10:37 11/23/19 22 11/25/2021 COMPR EHENS JAIRO METAB OLIC PANEL ALT 38 U/L 9-46 normal Not Available [address] [address] [place], [address], 11/25/2021 10:10:37 11/23/19 22 11/25/2021 LIPID PANEL WITH RATIO S HDL cholesterol 29 mg/dL > or = 40 low Not Available [address], [address], 11/25/2021 10:10:37 11/23/19 22 11/25/2021 LIPID PANEL WITH RATIO S cholesterol, total 122 mg/dL <200 normal Not Available [address] [address] [place], [address], 11/25/2021 10:10:37 11/23/19 22 11/25/2021 LIPID PANEL WITH RATIO S triglyceride s 219 mg/dL <150 high If a non-f astin g speci men was colle cted, consi derek repea t trigl yceri de testi ng on a fasti ng speci men if clini darlene indic ated. Akil hodgson et al. J. of Clin. Lipid ol. 2015; 9:129 -169. Not Available [address], [address], 11/25/2021 10:10:37 11/23/19 22 11/25/2021 LIPID PANEL [...] 2061- 2068 (http ://ed ucati on.Qu estDi Authentic Responseos Prolifys. com/f aq/FA Q164) Not Available [facility] [address] [address] [place], [address], 11/25/2021 10:10:37 11/23/19 22 11/25/2021 LIPID PANEL WITH RATIO S chol/HDLC ratio 4.2 (calc ) <5.0 normal Not Available [address], [address], 11/25/2021 10:10:37 11/23/19 22 11/25/2021 LIPID PANEL WITH RATIO S LDL/HDL ratio 2.2 (calc ) Below [place] Risk: <2.28 [place] Risk: 2.29- 4.90 Moder ate Risk: 4.91- 7.12 High Risk: >7.13 Not Available [address], [address], 11/25/2021 10:10:37 11/23/19 22 11/25/2021 LIPID PANEL WITH RATIO S non HDL cholesterol 93 mg/dL _(nathalie c) <130 normal For patie nts with diabe sid plus 1 major ASCVD risk facto r, treat ing to a non-H DL-C goal of <100 mg/dL (LDL- C of <70 mg/dL ) is berna madrigalo n. Not Available [address], [address], 11/25/2021 10:10:37 11/23/19 22 11/25/2021 TSH+F REE T4 TSH 2.13 mIU/L 0.40-4 .50 normal Not Available [facility] [address], [address], 11/25/2021 10:10:36 11/23/19 22 11/25/2021 TSH+F REE T4 T4, free 1.5 NG/dL 0.8-1. 8 normal Not Available [facility] [address] [place], [address], 11/25/2021 10:10:36 11/23/19 22 11/25/2021 CBC (INCL UDES DIFF/ PLT) hematocrit 43.1 % 38.5-5 0.0 normal Not Available [address], [address], 11/25/2021 10:10:39 11/23/19 22 11/25/2021 CBC (INCL UDES DIFF/ PLT) white blood cell count 6.7 thous and/u L 3.8-10 .8 normal Not Available [address], [address], 11/25/2021 10:10:39 11/23/19 22 11/25/2021 CBC (INCL UDES DIFF/ PLT) red blood cell count 4.87 saman on/uL 4.20-5 .80 normal Not Available [address], [address], 11/25/2021 10:10:39 11/23/19 22 11/25/2021 CBC (INCL UDES DIFF/ PLT) hemoglobin 14.9 g/dL 13.2-1 7.1 normal Not Available [address], [address], 11/25/2021 10:10:39 11/23/19 22 11/25/2021 CBC (INCL UDES DIFF/ PLT) MCV 88.5 fL 80.0-1 00.0 normal Not Available [address], [address], 11/25/2021 10:10:39 11/23/19 22 11/25/2021 CBC (INCL UDES DIFF/ PLT) MCH 30.6 pg 27.0-3 3.0 normal Not Available [address], [address], 11/25/2021 10:10:39 11/23/19 22 11/25/2021 CBC (INCL UDES DIFF/ PLT) MCHC 34.6 g/dL 32.0-3 6.0 normal Not Available [address], [address], 11/25/2021 10:10:39 11/23/19 22 11/25/2021 CBC (INCL UDES DIFF/ PLT) RDW 13.0 % 11.0-1 5.0 normal Not Available [address], [address], 11/25/2021 10:10:39 11/23/19 22 11/25/2021 CBC (INCL UDES DIFF/ PLT) platelet count 234 thous and/u L 140-40 0 normal Not Available [address], [address], 11/25/2021 10:10:39 11/23/19 22 11/25/2021 CBC (INCL UDES DIFF/ PLT) MPV 9.4 fL 7.5-12 .5 normal Not Available [address], [address], 11/25/2021 10:10:39 11/23/19 22 11/25/2021 CBC (INCL UDES DIFF/ PLT) absolute neutrophils 3926 cells /uL 1500-7 800 normal Not Available [address], [address], 11/25/2021 10:10:39 11/23/19 22 11/25/2021 CBC (INCL UDES DIFF/ PLT) absolute lymphocytes 2037 cells /uL 850-39 00 normal Not Available [address], [address], 11/25/2021 10:10:39 11/23/19 22 11/25/2021 CBC (INCL UDES DIFF/ PLT) absolute monocytes 549 cells /uL 200-95 0 normal Not Available [address], [address], 11/25/2021 10:10:39 11/23/19 22 11/25/2021 CBC (INCL UDES DIFF/ PLT) absolute eosinophils 147 cells /uL 15-500 normal Not Available [address], [address], 11/25/2021 10:10:39 11/23/19 22 11/25/2021 CBC (INCL UDES DIFF/ PLT) absolute basophils 40 cells /uL 0-200 normal Not Available [address], [address], 11/25/2021 10:10:39 11/23/19 22 11/25/2021 CBC (INCL UDES DIFF/ PLT) neutrophils 58.6 % normal Not Available [address], [address], 11/25/2021 10:10:39 11/23/19 22 11/25/2021 CBC (INCL UDES DIFF/ PLT) lymphocytes 30.4 % normal Not Available [facility] [address], [address], 11/25/2021 10:10:39 11/23/19 22 11/25/2021 CBC (INCL UDES DIFF/ PLT) monocytes 8.2 % normal Not Available [facility] [address], [address], 11/25/2021 10:10:39 11/23/19 22 11/25/2021 CBC (INCL UDES DIFF/ PLT) eosinophils 2.2 % normal Not Available [facility] [address], [address], 11/25/2021 10:10:39 11/23/19 22 11/25/2021 CBC (INCL UDES DIFF/ PLT) basophils 0.6 % normal Not Available [facility] [address], [address], 11/25/2021 10:10:39 09/16/12/20/2022 TSH+F REE T4 TSH 1.20 mIU/L 0.40-4 .50 normal Not Available [address], [address], 12/20/2022 18:47:30 12/16/19 23 12/20/2022 TSH+F REE T4 T4, free 1.3 NG/dL 0.8-1. 8 normal Not Available [address], [address], 12/20/2022 18:47:30 12/16/19 23 12/20/2022 LIPID PANEL WITH RATIO S cholesterol, total 113 mg/dL <200 normal Not Available [address], [address], 12/20/2022 18:47:31 12/16/19 23 12/20/2022 LIPID PANEL WITH RATIO S HDL cholesterol 26 mg/dL > or = 40 low Not Available [address], [address], 12/20/2022 18:47:31 12/16/19 23 12/20/2022 LIPID PANEL WITH RATIO S triglyceride s 166 mg/dL <150 high Not Available [address], [address], 12/20/2022 18:47:31 12/16/19 23 12/20/2022 LIPID PANEL [...] 2061- 2068 (http ://ed ucati on.Qu Shai chesterCHOOMOGO. com/f aq/FA Q164) Not Available [address], [address], 12/20/2022 18:47:31 12/16/19 23 12/20/2022 LIPID PANEL WITH RATIO S chol/HDLC ratio 4.3 (calc ) <5.0 normal Not Available [address], [address], 12/20/2022 18:47:31 12/16/1912/20/2022 LIPID PANEL WITH RATIO S LDL/HDL ratio 2.4 (calc ) Below [place] Risk: <2.28 [place] Risk: 2.29- 4.90 Moder ate Risk: 4.91- 7.12 High Risk: >7.13 Not Available [address], [place], [address], 12/20/2022 18:47:31 12/16/1912/20/2022 LIPID PANEL WITH RATIO S non HDL cholesterol 87 mg/dL _(nathalie c) <130 normal For patie nts with diabe sid plus 1 major ASCVD risk facto r, treat ing to a non-H DL-C goal of <100 mg/dL (LDL- C of <70 mg/dL ) is consi dered a thera peuti c optio n. Not Available [facility] [address] [place] [address], [address], 12/20/2022 18:47:31 12/16/1912/20/2022 COMPR EHENS JAIRO METAB OLIC PANEL glucose 122 mg/dL 65-99 high Fasti ng refer ence inter sly For someo ne witho ut known diabe sid, a gluco se value betwe en 100 and 125 mg/dL is consi stent with predi abete s and shoul d be confi rmed with a follo w-up test. Not Available [address], [address], 12/20/2022 18:47:33 12/16/19 23 12/20/2022 COMPR EHENS JAIRO METAB OLIC PANEL urea nitrogen (BUN) 16 mg/dL 7-25 normal Not Available [address], [address], 12/20/2022 18:47:33 12/16/19 23 12/20/2022 COMPR EHENS JAIRO METAB OLIC PANEL creatinine 0.80 mg/dL 0.60-1 .29 normal Not Available [address], [address], 12/20/2022 18:47:33 12/16/19 23 12/20/2022 COMPR EHENS JAIRO METAB OLIC PANEL eGFR 111 mL/mi n/1.7 3m2 > or = 60 normal Not Available [address] [address] [place], [address], 12/20/2022 18:47:33 12/16/19 23 12/20/2022 COMPR EHENS JAIRO METAB OLIC PANEL BUN/creatini ne ratio SEE NOTE: (calc ) 6-22 Not Repor jai: BUN and Creat inine are withi n refer ence range . Not Available [address], [address], 12/20/2022 18:47:33 12/16/19 23 12/20/2022 COMPR EHENS JAIRO METAB OLIC PANEL sodium 138 mmol/ L 135-14 6 normal Not Available [address], [address], 12/20/2022 18:47:33 12/16/19 23 12/20/2022 COMPR EHENS JAIRO METAB OLIC PANEL potassium 3.9 mmol/ L 3.5-5. 3 normal Not Available [address], [address], 12/20/2022 18:47:33 12/16/19 23 12/20/2022 COMPR EHENS JAIRO METAB OLIC PANEL chloride 101 mmol/ L 98-110 normal Not Available [address], [address], 12/20/2022 18:47:33 12/16/19 23 12/20/2022 COMPR EHENS JAIRO METAB OLIC PANEL carbon dioxide 31 mmol/ L 20-32 normal Not Available [address], [address], 12/20/2022 18:47:33 12/16/19 23 12/20/2022 COMPR EHENS JAIRO METAB OLIC PANEL calcium 9.4 mg/dL 8.6-10 .3 normal Not Available [address], [address], 12/20/2022 18:47:33 12/16/19 23 12/20/2022 COMPR EHENS JAIRO METAB OLIC PANEL protein, total 6.8 g/dL 6.1-8. 1 normal Not Available [address], [address], 12/20/2022 18:47:33 12/16/19 23 12/20/2022 COMPR EHENS JAIRO METAB OLIC PANEL albumin 4.6 g/dL 3.6-5. 1 normal Not Available [address], [address], 12/20/2022 18:47:33 12/16/19 23 12/20/2022 COMPR EHENS JAIRO METAB OLIC PANEL globulin 2.2 g/dL_ (calc ) 1.9-3. 7 normal Not Available [address], [address], 12/20/2022 18:47:33 12/16/19 23 12/20/2022 COMPR EHENS JAIRO METAB OLIC PANEL albumin/glob ulin ratio 2.1 (calc ) 1.0-2. 5 normal Not Available [address], [address], 12/20/2022 18:47:33 12/16/19 23 12/20/2022 COMPR EHENS JAIRO METAB OLIC PANEL bilirubin, total 0.6 mg/dL 0.2-1. 2 normal Not Available [address], [address], 12/20/2022 18:47:33 12/16/19 23 12/20/2022 COMPR EHENS JAIRO METAB OLIC PANEL alkaline phosphatase 49 U/L 36-130 normal Not Available [address], [address], 12/20/2022 18:47:33 12/16/19 23 12/20/2022 COMPR EHENS JAIRO METAB OLIC PANEL AST 25 U/L 10-40 normal Not Available [address], [address], 12/20/2022 18:47:33 12/16/19 23 12/20/2022 COMPR EHENS JAIRO METAB OLIC PANEL ALT 37 U/L 9-46 normal Not Available [address], [address], 12/20/2022 18:47:33 12/16/19 23 12/20/2022 HEMOG LOBIN [...] Care in Diabe sid(A DA). Not Available [address] [address] [place], [address], 12/20/2022 18:47:34 12/16/1912/20/2022 T3, FREE T3, free 3.6 pg/mL 2.3-4. 2 normal Not Available [address] [place], [address], 12/20/2022 18:47:35 12/16/19 23 12/20/2022 CBC (INCL UDES DIFF/ PLT) white blood cell count 7.3 thous and/u L 3.8-10 .8 normal Not Available [facility] [address] [place], [address], 12/20/2022 18:47:36 12/16/19 23 12/20/2022 CBC (INCL UDES DIFF/ PLT) red blood cell count 5.16 saman on/uL 4.20-5 .80 normal Not Available [facility] [address] [address] [place], [address], 12/20/2022 18:47:36 12/16/19 23 12/20/2022 CBC (INCL UDES DIFF/ PLT) hemoglobin 15.3 g/dL 13.2-1 7.1 normal Not Available [facility] [address] [place], [address], 12/20/2022 18:47:36 12/16/19 23 12/20/2022 CBC (INCL UDES DIFF/ PLT) hematocrit 47.0 % 38.5-5 0.0 normal Not Available [address], [address], 12/20/2022 18:47:36 12/16/19 23 12/20/2022 CBC (INCL UDES DIFF/ PLT) MCV 91.1 fL 80.0-1 00.0 normal Not Available [address], [address], 12/20/2022 18:47:36 12/16/19 23 12/20/2022 CBC (INCL UDES DIFF/ PLT) MCH 29.7 pg 27.0-3 3.0 normal Not Available [address], [address], 12/20/2022 18:47:36 12/16/19 23 12/20/2022 CBC (INCL UDES DIFF/ PLT) MCHC 32.6 g/dL 32.0-3 6.0 normal Not Available [address], [address], 12/20/2022 18:47:36 12/16/19 23 12/20/2022 CBC (INCL UDES DIFF/ PLT) RDW 13.9 % 11.0-1 5.0 normal Not Available [address], [address], 12/20/2022 18:47:36 12/16/19 23 12/20/2022 CBC (INCL UDES DIFF/ PLT) platelet count 222 thous and/u L 140-40 0 normal Not Available [address], [address], 12/20/2022 18:47:36 12/16/19 23 12/20/2022 CBC (INCL UDES DIFF/ PLT) MPV 9.8 fL 7.5-12 .5 normal Not Available [address], [address], 12/20/2022 18:47:36 12/16/19 23 12/20/2022 CBC (INCL UDES DIFF/ PLT) absolute neutrophils 4460 cells /uL 1500-7 800 normal Not Available [address], [address], 12/20/2022 18:47:36 12/16/19 23 12/20/2022 CBC (INCL UDES DIFF/ PLT) absolute lymphocytes 1993 cells /uL 850-39 00 normal Not Available [address], [address], 12/20/2022 18:47:36 12/16/19 23 12/20/2022 CBC (INCL UDES DIFF/ PLT) absolute monocytes 650 cells /uL 200-95 0 normal Not Available [address], [address], 12/20/2022 18:47:36 12/16/19 23 12/20/2022 CBC (INCL UDES DIFF/ PLT) absolute eosinophils 168 cells /uL 15-500 normal Not Available [address], [address], 12/20/2022 18:47:36 12/16/19 23 12/20/2022 CBC (INCL UDES DIFF/ PLT) absolute basophils 29 cells /uL 0-200 normal Not Available [address], [address], 12/20/2022 18:47:36 12/16/19 23 12/20/2022 CBC (INCL UDES DIFF/ PLT) neutrophils 61.1 % normal Not Available [address], [address], 12/20/2022 18:47:36 12/16/19 23 12/20/2022 CBC (INCL UDES DIFF/ PLT) lymphocytes 27.3 % normal Not Available [facility] - [address], [address], 12/20/2022 18:47:36 12/16/19 23 12/20/2022 CBC (INCL UDES DIFF/ PLT) monocytes 8.9 % normal Not Available [facility] [address], [address], 12/20/2022 18:47:36 12/16/19 23 12/20/2022 CBC (INCL UDES DIFF/ PLT) eosinophils 2.3 % normal Not Available [facility] [address], [address], 12/20/2022 18:47:36 12/16/19 23 12/20/2022 CBC (INCL UDES DIFF/ PLT) basophils 0.4 % normal Not Available [facility] [address], [address], 12/20/2022 18:47:36 12/16/19 23 12/20/2022 URINA LYSIS REFLE X color YELLOW yellow normal Not Available [facility] [address], [address], 12/20/2022 18:47:37 12/16/19 23 12/20/2022 URINA LYSIS REFLE X appearance CLOUDY clear abnormal Not Available [facility] [address], [address], 12/20/2022 18:47:37 12/16/1912/20/2022 URINA LYSIS REFLE X specific gravity 1.019 1.001- 1.035 normal Not Available [facility] [address], [address], 12/20/2022 18:47:37 12/16/1912/20/2022 URINA LYSIS REFLE X pH 5.5 5.0-8. 0 normal Not Available [facility] [address], [address], 12/20/2022 18:47:37 12/16/19 23 12/20/2022 URINA LYSIS REFLE X glucose NEGATI VE negati ve normal Not Available [address] [place], [address], 12/20/2022 18:47:37 12/16/19 23 12/20/2022 URINA LYSIS REFLE X bilirubin NEGATI VE negati ve normal Not Available [address] [address] [place], [address], 12/20/2022 18:47:37 12/16/19 23 12/20/2022 URINA LYSIS REFLE X ketones NEGATI VE negati ve normal Not Available [address] [address] [place], [address], 12/20/2022 18:47:37 12/16/19 23 12/20/2022 URINA LYSIS REFLE X occult blood NEGATI VE negati ve normal Not Available [address] [address] [place], [address], 12/20/2022 18:47:37 12/16/19 23 12/20/2022 URINA LYSIS REFLE X protein NEGATI VE negati ve normal Not Available [address] [address] [place], [address], 12/20/2022 18:47:37 12/16/19 23 12/20/2022 URINA LYSIS REFLE X nitrite NEGATI VE negati ve normal Not Available [facility] [address] [address] [place], [address], 12/20/2022 18:47:37 12/16/19 23 12/20/2022 URINA LYSIS REFLE X leukocyte esterase NEGATI VE negati ve normal Not Available [address] [address] [place], [address], 12/20/2022 18:47:37 09/1612/20/2022 VITAM IN B12/F OLATE [...] pg/mL will have sympt oms. Not Available [facility] [address] [place], [address], 12/20/2022 18:47:38 12/16/19 23 12/20/2022 VITAM IN B12/F OLATE , SERUM PANEL folate, serum 5.7 NG/mL normal Refer ence Range Low: <3.4 Borde rline : 3.4-5 .4 Ana Luisa l: >5.4 Not Available [facility] [address] [place], [address], 12/20/2022 18:47:38 12/16/1912/20/2022 PSA, TOTAL PSA, total [...] absen ce of disea se. Not Available [facility] [address] [place], [address], 12/20/2022 18:47:39 12/16/1912/20/2022 TESTO STERO NE, FREE [...] dupree refer to https ://ed ucati on.qu Particle. com/f aq/FA Q165 (This link is being provi ded for infor meg nal/e ducat ional purpo ses only. ) (Note ) This test was devel oped and its harpreet tical perfo rmanc e kaleb cteri stics have been deter mined by [employer]. It has not been clear ed or appro rebeca by the FDA. This assay has been valid ated pursu ant to the CLIA regul ation s and is used for clini nathalie purpo ses. Not Available [facility] [address] [place], [address], 12/20/2022 18:47:40 12/16/1912/20/2022 TESTO STERO NE, FREE (DIAL YSIS) AND TOTAL ,MS testosterone , free 62.5 pg/mL 35.0-1 55.0 (Note ) This test was devel oped and its harpreet tical perfo rmanc e kaleb cteri stics have been deter mined by [employer]. It has not been clear ed or appro rebeca by the FDA. This assay has been valid ated pursu ant to the CLIA regul ation s and is used for clini nathalie purpo ses. MD[facility] med fusio n [address] [facility] [address] [facility] [address] 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
--- OUTSIDE RECORDS SUMMARY | 2024-07-20 18:06 | XMS_ITS | Referral Summary ---
Author Organization [facility] Address [address] [place] [address] Care Team Providers Care Environmental Solutions Engineer Name Role Phone Alfredo Jung MD Unavailable Darinel Cano MD Unavailable [phone] Maria R Anderson Primary Care Pr ovider Encounters Date Type Department Care Team Description 05/27/2024 10:00 AM FOUNDRY WORKER APPRENTICE Office Visit [address] [place] [address] Curt Guillen MD Hemorrhoids, unspecified hemorrhoid type (Primary Dx) 05/18/2024 11:00 AM FOUNDRY WORKER APPRENTICE - 05/18/2024 12:15 PM FOUNDRY WORKER APPRENTICE Surgery [facility] Operating Room [address] [place] [address] Curt Guillen MD HEMORRHOIDECTOMY 05/18/2024 12:29 PM FOUNDRY WORKER APPRENTICE Anesthesia Event [facility] Operating Room [address] [place] [address] Mary Escoto MD Reynolds, Ethan Emerson, MD 05/18/2024 9:01 AM FOUNDRY WORKER APPRENTICE - 05/18/2024 3:00 PM FOUNDRY WORKER APPRENTICE Hospital Encounter [facility] Operating [address] [place] [address] Curt Guillen MD Hemorrhoids, unspecified hemorrhoid type Discharge Disposition: Discharge to home or self care 05/13/2024 10:55 AM FOUNDRY WORKER APPRENTICE Office Visit [address] [place] [address] Curt Guillen MD Hemorrhoids, unspecified hemorrhoid type 04/27/2024 11:13 AM FOUNDRY WORKER APPRENTICE Anesthesia Event [address] [address] Virgilio Gayle MD MichelleharveyBrittani allen, CREDIT ADMINISTRATION OFFICER 04/27/2024 11:00 AM FOUNDRY WORKER APPRENTICE - 04/27/2024 11:30 AM FOUNDRY WORKER APPRENTICE Surgery [address] [address] Rajeev Barriga MD COLON REMOVAL SNARE 04/27/2024 9:29 AM FOUNDRY WORKER APPRENTICE - 04/27/2024 1:01 PM FOUNDRY WORKER APPRENTICE Hospital Encounter [address] [address] Rajeev Barriga MD Family history of colon [...] 1 tablet (50 mcg total) by mouth 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 4 Active testosterone cypionate (DEPO-TESTOTERO [...] on file Legal Sex Male 10:49 PM FOUNDRY WORKER APPRENTICE Gender Identity Not on file Sexual Orientation Not on file Last Filed Vital Signs Vital Sign Reading Time Taken Comments Blood Pressure 127/83 05/27/2024 9:48 AM FOUNDRY WORKER APPRENTICE Pulse 82 05/27/2024 9:48 AM FOUNDRY WORKER APPRENTICE Temperature 36.2 C (97.1 F) 05/27/2024 9:48 AM FOUNDRY WORKER APPRENTICE Respiratory Rate 18 05/18/2024 2:40 PM FOUNDRY WORKER APPRENTICE Oxygen Saturation 96% 05/27/2024 9:48 AM FOUNDRY WORKER APPRENTICE Inhaled Oxygen Concentration - - Weight 119.3 kg (263 lb) 05/27/2024 9:48 AM FOUNDRY WORKER APPRENTICE Height 177.8 cm (5' 10 ) 05/27/2024 9:48 AM FOUNDRY WORKER APPRENTICE Body Mass Index 37.74 05/27/2024 9:48 AM FOUNDRY WORKER APPRENTICE Plan of Treatment Not on file Procedures Procedure Name Priority Date/Time Associated Diagnosis Comments SURGICAL PATHOLOGY Routine 05/18/2024 2: 11 PM FOUNDRY WORKER APPRENTICE Hemorrhoids, unspecified hemorrhoid type [place] AN ELECTIVE ENDOTRACHEAL AIRWAY Routine 05/18/2024 12:45 PM FOUNDRY WORKER APPRENTICE HEMORRHOIDECTOMY 05/18/2024 12:1 3 PM FOUNDRY WORKER APPRENTICE Hemorrhoids, unspecified hemorrhoid type POTASSIUM, WHOLE BLOOD STAT 9:30 AM FOUNDRY WORKER APPRENTICE SURGICAL PATHOLOGY STAT 04/27/2024 1: 35 PM FOUNDRY WORKER APPRENTICE Family history of colon cancer Encounter for screening colonoscopy ENDO ADD ON COLON INJECTION SUBMUCOSAL 04/27/2024 11:08 AM FOUNDRY WORKER APPRENTICE Family history of colon cancer Encounter for screening colonoscopy COLON REMOVAL SNARE 04/27/2024 1 1:08 AM FOUNDRY WORKER APPRENTICE Family history of colon cancer Encounter for screening colonoscopy COLONOSCOPY 04/27/2024 9:43 AM FOUNDRY WORKER APPRENTICE from Last 3 Months Results * Surgical pathology (05/18/2024 2:11 PM FOUNDRY WORKER APPRENTICE) Tissue specimen (specimen) (Hemorrhoid/Anal Tag) 05/18/2024 1:05 PM FOUNDRY WORKER APPRENTICE Tissue specimen (specimen) (Hemorrhoid/Anal Tag) 05/18/2024 1:11 PM FOUNDRY WORKER APPRENTICE Tissue specimen (specimen) (Hemorrhoid/Anal Tag) 05/18/2024 1:21 PM FOUNDRY WORKER APPRENTICE Narrative PATHOLOGY [facility] ([facility]) - 05/19/2024 11:50 AM FOUNDRY WORKER APPRENTICE EPIC results best viewed via link to PDF [facility] Department of Pathology [address] [place], [place] [id number] Note to Patients: This report may contain [...] Final Report Patient Name: PROSPER HERNANDEZ Address: [address] [place] [address] Gender: M : 1975 (Age: 48) Service: Surgery Location: [facility] Hospital #: [id number] Patient Type: [facility] Taken: 05/18/2024 Received: 05/18/2024 Accessioned: 05/18/2024 Reported: [...] determined by the Surgical Pathology Department at [facility] as part of an ongoing quality control tech raw materials program and in compliance with federally mandated [...] characteristics determined by the Surgical Pathology Department [facility]. It has not been cleared or approved by the U. S. Food and Drug Administration. Note for decalcified specimens: This assay has not been validated on decalcified tissues. Results should be interpreted with caution given the possibility of false negativity on decalcified specimens Curt Guillen MD LAB PATHOLOGY ORDER MICHELLE Final Result PATHOLOGY [facility] [address] [id number] * [place] AN ELECTIVE ENDOTRACHEAL AIRWAY (05/18/2024 12:45 PM FOUNDRY WORKER APPRENTICE) Narrative Jin Bautista CRNA - 05/18/2024 12:45 PM FOUNDRY WORKER APPRENTICE Jin Bautista CRNA 05/18/2024 12:45 PM Airway Patient location: OR Urgency: elective Indications for airway management: anesthesia and airway protection Difficult airway: no Staff: Supervising provider: Mary Escoto MD Placed by: CREDIT ADMINISTRATION OFFICER: Jin Bautista CRNA Emergent airway documentation: Risks [...] * Potassium, whole blood (05/18/2024 9:30 AM FOUNDRY WORKER APPRENTICE) Potassium, bld 3.8 3.3 - 4.9 mmol/L Comment: Interpretive Data This method is not able to assess for hemolysis, which may falsely increase potassium concentrations. If further testing is needed to evaluate this result, consider in-laboratory plasma potassium. Current Interpretive Data was last revised on 2021. Blood 05/18/2024 9:30 AM FOUNDRY WORKER APPRENTICE 05/18/2024 9:31 AM FOUNDRY WORKER APPRENTICE us Virgilio Gayle MD LAB BLOOD ORDERABLES F inal Result [facility] ([address] Department [place] [address] * Surgical pathology (04/27/2024 1:35 PM FOUNDRY WORKER APPRENTICE) Tissue specimen (specimen) (Polyp(s), colon/colorectal, esophageal, gastric) 04/27/2024 11:39 AM FOUNDRY WORKER APPRENTICE Tissue specimen (specimen) (Polyp(s), colon/colorectal, esophageal, gastric) 04/27/2024 11:43 AM FOUNDRY WORKER APPRENTICE Tissue specimen (specimen) (Polyp(s), colon/colorectal, esophageal, gastric) 04/27/2024 12:05 PM FOUNDRY WORKER APPRENTICE Narrative PATHOLOGY [facility] ([facility]) - 04/29/2024 12:29 PM FOUNDRY WORKER APPRENTICE EPIC results best viewed via link to PDF [facility] Department of Pathology [address] [place] [id number] Note to Patients: This report may contain [...] Final Report Patient Name: PROSPER HERNANDEZ Address: [address] [place] [address] Gender: M : 1975 (Age: 48) Service: Gastro Location: [facility] Hospital #: [id number] Patient Type: [facility] Taken: 04/27/2024 Received: 04/28/2024 Accessioned: 04/28/2024 Reported: [...] determined by the Surgical Pathology Department at [facility] as part of an ongoing quality control tech raw materials program and in compliance with federally mandated [...] characteristics determined by the Surgical Pathology Department [facility]. It has not been cleared or approved by the U. S. Food and Drug Administration. Note for decalcified specimens: This assay has not been validated on decalcified tissues. Results should be interpreted with caution given the possibility of false negativity on decalcified specimens Rajeev Barriga MD LAB PATHOLOGY ORDERABLES Final R esult PATHOLOGY [facility] ([facility]) [address] [place], [place] [id number] * Colonoscopy (04/27/2024 9:43 AM FOUNDRY WORKER APPRENTICE) Anatomical Region Laterality Modality Other Narrative Procedure Note Rajeev Barriga MD - 04/27/2024 9:43 AM CST [facility] Patient Name: Prosper Hernandez Procedure Date: 04/27/2024 9:43 AM Date of : 1975 Admit Type: Outpatient Age: 48 Gender: Male Attending MD: Rajeev Barriga M.D. Room: [facility] ENDOSCOPY ROOM 3 Note Status: [...] retrieved. Injected. Clips(MR conditional) were placed. Clip cathode washer: [employer] - Diverticulosis in the sigmoid colon and [...] procedure were verified by the physician, the hospital aides and assistants teacher and the health and safety technician in the endoscopy suite. Mental Status [...] scope was passed under direct vision. TheColonoscope [id number] was introduced through the anus and advanced [...] hemostatic clips were successfully placed(MR conditional). Clip cathode washer: [employer] There was no bleeding at the end of the procedure. Multiple small and large-mouthed diverticula were found in thesigmoid colon and ascending colon. External and internal hemorrhoids were found during retroflexion. Rajeev Barriga M.D. 04/27/2024 12:14:38 PM Number of Addenda: 0 Note Initiated On: 04/27/2024 9:43 AM Procedure Code(s): --- Professional --- 11774, Colonoscopy, flexible; with removal of tumor(s), polyp(s), or other lesion(s) by snare technique 15571, Colonoscopy, flexible; with directed submucosal injection(s),any substance --- Technical --- 91972, Colonoscopy, flexible; with removal of tumor(s), polyp(s), or other lesion(s) by snare technique 37407, Colonoscopy, flexible; with directed submucosal injection(s),any substance [...] perforation orabscess without bleeding CPT copyright 2020 [employer]. All rights reserved. The codes documented in this report are preliminary and upon cpc coder reviewmay be revised to meet current compliance requirements. Recognized by the [employer] for promoting quality in endoscopy Rajeev Barriga MD ENDOSCOPY PROCEDURES Final Resul t from Last 3 Months Insurance QoL Meds [place] Q[place] Med[place] Directives For more information, please contact: [phone] * Full Code (Latest Code Status on File) Date Activated Date Inactivated Comments 04/27/2024 9:45 AM 04/27/2024 5:06 PM * Full Code Date Activated Date Inactivated Comments 04/27/2024 9:45 AM 04/27/2024 9:45 AM Care Teams Environmental Solutions Engineer Relationship Specialty Start Date End Date Maria R Anderson PA [address] [facility] [phone] [place] [address] PCP - General Physician Research Nurse Practitioner 05/31/23 Alfredo Jung MD [address] [address] Referring Physician Vascular Surgery 04/18/23 Darinel Cano MD [address] [facility] [phone] [place] [address] Surgeon Colon and Rectal Surgery 05/31/23
--- OUTSIDE RECORDS SUMMARY | 2024-07-20 18:06 | XMS_ITS | Data Portability ---
Author Organization LOURDES Gurpreet CORREIA Address [address] [place] [address] Care Team Providers Care Account Underwriter Name Role Phone MARIA R ANDERSON Primary [...] (hemo globi n A1c), blood 2024 025 [facility] [[email or web address] [facility], [address], [place], [address], 07/07/2024 13:17:46 CBC w/ auto diff 2024 025 [employer] [facility], [address], [place], [address], 07/07/2024 13:17:55 CMP, serum or plasm a 2024 025 [employer] [facility], [address], [place], [address], 07/07/2024 13:17:35 testo stero ne, free + total , serum 2024 025 [employer] [facility], [address], [place], [address], 06/29/2024 10:42:07 PSA, serum or plasm a 2024 025 [employer] [facility], [address], [place], [address], 06/29/2024 10:42:07 lipid panel , serum 2024 025 [facility] [[email or web address]][employer] [facility], [address], [place], [address], 07/07/2024 13:17:21 TSH + free T4, serum 2024 025 [facility] [employer] [facility], [address], [place], [address], 07/07/2024 13:17:11 HbA1c (hemo globi n A1c), blood 2023 024 [facility] [[email or web address]][employer] [facility], [address], [place], [address], 01/02/2024 12:37:43 testo stero ne, free + total , serum 2023 024 [employer] [facility], [address], [place], [address], 01/07/2024 14:45:14 PSA, serum or plasm a 2023 024 [email or web address]][employer] [facility], [address], [place], [address], 01/02/2024 12:38:15 CBC w/ auto diff 2023 024 [facility] [employer] [facility], [address], [place], [address], 01/02/2024 12:37:57 CMP, serum or plasm a 2023 024 [facility] [employer] [facility], [address], [place], [address], 01/02/2024 12:37:33 lipid panel , serum 2023 024 [employer] [facility], [address], [place], [address], 01/02/2024 12:38:33 TSH + free T4, serum 2023 024 [facility] [employer] [facility], [address], [place], [address], 01/02/2024 12:37:18 HbA1c (hemo globi n A1c), blood 2023 024 [employer] [facility], [address], [place], [address], 06/26/2023 09:08:17 CBC w/ auto diff 2023 024 [email or web address] [facility] [facility], [address], [place], [address], 07/04/2023 16:50:20 CMP, serum or plasm a 2023 024 [employer] [facility], [address], [place], [address], 07/04/2023 16:50:20 vitam in B12 + folat e, serum or blood 2023 024 [email or web address] [employer] [facility], [address], [place], [address], 07/04/2023 16:50:20 testo stero ne, free + total , serum 2023 024 [email or web address] [facility], [address], [place], [address], 07/04/2023 16:50:20 PSA, serum or plasm a 2023 024 [email or web address] [facility], [address], [place], [address], 07/04/2023 16:50:20 lipid panel , serum 2023 024 [email or web address] [facility], [address], [place], [address], 07/04/2023 16:50:20 TSH + free T4, serum 2023 024 [employer] [facility], [address], [place], [address], 07/04/2023 16:50:20 Referral audio logis t refer ral 2023 024 [facility] (Audiology), [address], [place], [address], 01/15/2024 15:09:34 derma tolog ist refer ral - left cheek pale irreg ular lesio n, and left upper chest lesio n. 2023 024 [email or web address] Kaye MD (Dermatology), [address], [address], [place], [address], 01/07/2024 12:25:58 Procedures colon oscop y scree palak (PROC ) 2023 024 [email or web address] [facility], [address], [place], [address], 09/13/2023 07:57:34 Surgeries None recor ded. Imaging US, forea rm - soft tissu e 2024 025 [facility], [address] [place] [address] [address], [place], [address], 07/20/2024 17:50:24 CT, chest , w/o contr ast 2024 025 [facility] (Imaging), [address] [place] [address] [address], [place], [address], 07/13/2024 16:05:43 US, kidne y 2023 024 [facility] (Imaging), [address] [place] [address] [address], [place], [address], 01/16/2024 11:01:35 CT, chest , w/o contr ast 2023 024 [facility] (Imaging), [address] [place] [address] [address], [place], [address], 01/27/2024 15:36:52 Medication Orders testo stero ne cypio elinor 200 mg/mL intra muscu lar oil 2023 024 [id number], [address], [place], [place], [id number], 06/10/2023 17:52:42 Wegov y 0.25 mg/0. 5 mL subcu taneo us pen injec tor 2023 024 [facility], [address] [facility] [facility], [place], [address], 12/19/2023 15:26:07 Patient TargetsNo targets recorded. Patient Instructions Encounter Date Encounter Id Patient Instructions Last Modified By Organization Details Last Modified Time 12/19/2023 [id number] A healthy lifestyle: care instructions Not available 12/19/2023 15:35:30 06/19/2024 [id number] A healthy lifestyle: care instructions [email or web address] Not available 06/19/2024 17:37:44 Reason for Referral Prefitter Doors Referral for S kin lesion left cheek pale irregular lesion, and left upper chest lesion. 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 [email or web address] Not Available 07/21 10:55:19 12/05/19 24 12/05/2023 CT, abdom en + pelvi s, w/ contr ast No observ ation record ed. [email or web address] [address], [address], 12/06/2023 09:42:11 01/15/20 24 01/14/2024 US, kidne y No observ ation record ed. [facility] (Imaging) [address] [place] [address], [place], [address], 01/27/2024 17:45:27 05/07/19 25 04/27/2024 colon oscop y scree palak (PROC ) No observ ation record ed. [email or web address] [facility] [address], [place], [address], 05/08/2024 00:45:44 07/13/19 25 07/11/2024 CT, chest , w/o contr ast No observ ation record ed. [address], [address], 07/13/2024 16:05:33 Result Notes None recorded. Problems Name Problem SNOMED Code Status Onset Date Resolution Date Notes Provider Name and Address Organization Details Recorded Time Body mass index 40+ - severely obese 411467471 Active 2023 Karon Lozano [place] null, [place] - [facility] 4 15:13:53 Long-term drug therapy Active 2023 YAYA Trujillo Attn: Accountin g,[address] [facility], [place], [address], [place] [facility] 4 15:26:53 Obesity 416911501 Active 2023 YAYA Trujillo Attn: Accountin g,[address] [facility], [place], [address], [place] [facility] 4 15:26:55 Male hypogonadis m 12305672 Active 2023 YAYA Trujillo Attn: Accountin g,[address] [facility], [place], [address], [place] [facility] 4 15:27:02 Prediabetes 939371956 Active 2023 YAYA Trujillo Attn: Accountin g,[address] [facility], [place], [address], [place] [facility] 4 15:27:04 Hyperlipide maurizio 17689181 Active 2023 YAYA Trujillo Attn: Accountin g,[address] [facility], [place], [address], [place] [facility] 4 15:27:07 Hypothyroid ism 87628424 Active 2023 YAYA Trujillo Attn: Accountin g,[address] [facility], [place], [address], [place] [facility] 4 15:27:08 Nodule of lung 615465413 Active 2023 YAYA Trujillo Attn: Accountin g,[address] [facility], [place], [address], [place] [facility] 4 15:27:10 Benign essential hypertensio n 5507988 Active 2023 YAYA Trujillo Attn: Val g,[address] [facility], [place], [place], [address] [place] [address] 2, [facility] 4 15:27:12 Decreased hearing 560589115 Active 2023 YYAA Trujillo Attn: Val g,[address] [facility], [place], [place], [address] [place] [address] 2, [facility] 4 10:25:15 Positive screening for depression on PHQ-9 (Patient Health Questionnai re 9) 3063861902124 00 Active 2024 YAYA Trujillo Attn: Val g,[address] [facility], [place], [address] [place] [address] 2, [facility] 5 22:06:35 Body mass index 30+ - obesity 072027164 Active 2024 YAYA Trujillo Attn: Val g,[address] [facility], [place], [place], [address] [place] [address] 2, [facility] 5 22:06:43 Problem Notes None recorded. Procedures Surgical History Date Name Laterality Status Provider Name and Address Organization Details Recorded Time Hernia Repair completed Audrey Rey MA [facility] 06/10/2023 17:25:41 Carpal tunnel surgery completed Audrey Rey MA [facility] 06/10/2023 17:25:50 cholecystectomy completed Audrey weston MA [facility] 06/10/2023 17:25:58 Imaging Results Imaging Date Name Status LastModified by Organization Details LastModified Time 06/25/2023 XR, ribs, bilateral completed [email or web address] Information not available 07/22/2023 10:55:19 12/05/2023 CT, abdomen + pelvis, w/ contrast completed [address], [address], 12/06/2023 09:42:11 01/14/2024 US, kidney completed [facility] (Imaging) [address] [place] [address], [address], 01/27/2024 17:45:27 04/27/2024 colonoscopy screening (PROC) completed [email or web address] [facility] [address], [place], [address], 05/08/2024 00:45:44 07/11/2024 CT, chest, w/o contrast completed [facility] [address], [place], [address], 07/13/2024 16:05:33 Procedure Notes None recorded. Medical Equipment None [...] 12.5 mg tablet TAKE 1 TABLET DAILY 2024 active Not Available Not Available Not Avai lable fenofibric acid (choline) 135 mg capsule,del ayed release Take 1 capsule every day by oral route. 2024 active Not Available Not Available Not Avai lable Wegovy 0.25 mg/0.5 mL subcutaneou s pen injector Inject 0.25 mg every week by subcutane ous route as directed. 12/18 completed Not Available Not Available Not Available Paxlovid 150 mg-100 mg tablets in a dose pack (Moderate Renal Dose) TK 1 NIRMATREL VIR T AND 1 RITONAVIR T TOGETHER PO BID FOR 5 DAYS 06/09 completed Not Available Not Available Not Available Vitals Date Recorded Body weight Heart rate Oxygen saturation Oxygen saturation in Arterial blood by Pulse oximetry Body mass index (BMI) Body height Systolic blood pressure Diastolic blood pressure Provider Name and Address Organization Details Last Updated DateTime 4 649429. 3 g 81 /min 98 % 98 % 43.2 kg/m2 177.8 cm 128 mm[Hg] 80 mm[Hg] Audrye Rey MA [facility] 4 17:24:23 Date Recorded Systolic blood pressure Diastolic blood pressure Provider Name and Address Organization Details Last Updated DateTime 06/10/2023 124 mm[Hg] 80 mm[Hg] YAYA Trujillo Attn: Accounting, [place], [address], [facility] 06/10/2023 17:51:19 Date Recorded Body height Body mass index (BMI) Body weight Respiratory rate Provider Name and Address Organization Details Last Updated DateTime 12/19/2023 177.8 cm 42.2 kg/m2 555675.3 g 18 /min Karon Lozano MA [facility] 12/19/2023 15:13:34 Date Recorded Heart rate Oxygen saturation Oxygen saturation in Arterial blood by Pulse oximetry Systolic blood pressure Diastolic blood pressure Provider Name and Address Organization Details Last Updated DateTime 4 80 /min 98 % 98 % 140 mm[Hg] 72 mm[Hg] YAYA Trujillo Attn: Accountin g,[address] [place], [address], [facility] 4 15:36:16 Date Recorded Body height Body mass index (BMI) Body weight Heart rate Oxygen saturation Oxygen saturation in Arterial blood by Pulse oximetry Systolic blood pressure Diastolic blood pressure Provider Name and Address Organization Details Last Updated DateTime 5 177.8 cm 37.9 kg/m2 913309. 82 g 89 /min 98 % 98 % 138 mm[Hg] 78 mm[Hg] Al Washington MA [facility] 17:11:44 Date Recorded Respiratory rate Systolic blood pressure Diastolic blood pressure Provider Name and Address Organization Details Last Updated DateTime 06/19/2024 16 /min 140 mm[Hg] 80 mm[Hg] YAYA Trujillo Attn: Accounting, [address] [facility], [place], [address], [place] - [facility] 06/19/2024 17:33:37 Social History Question Answer Notes LastModified by Organizat ion Details LastModified Time Tobacco Smoking Status Never Smoker Audrey Rey MA null, [facility] 06/10/2023 17:25:33 What Is Your Level Of Alcohol Consumption? Moderate [employer] Information not available 12/19/2023 Are [...] SNOMED-CT Code Diagnosis ICD10 Code Diagnosis Note [id number] YAYA Trujillo [facility] [address] [place] [address] 06/10/2023 16:59:17 06/10/2023 17:57:42 Benign essential hypertension 1249437 I10 stable on amlodipine 5mg and losartan hctz 100/12.5mg daily. Hyperlipidemia 64234756 E78.5 on multiple agents for lipid management . due for fasting lab panel. Hypothyroidism 38890907 E03.9 pt is on high dose synthroid supplement . due for updated labs Long-term drug therapy 368858505 Z79.899 routine cbc, cmp, b12 and folate due Male hypogonadism 243513 06 E29.1 Testostero ne labs plus PSA due. refill on testostero ne supplement . Prediabetes 308931401 R7 3.03 underlying prediabete s present. due for A1c lab Screening for malignant neoplasm of colon 584746679 Z12.11 pt is due for colonoscop y screening Adult heal th examination 985217261 Z00.01 annual wellness appt completed Body mass index 40+ - severely obese 501372058 Z68.41 start wegovy 0.25mg weekly therapy if insurance will authorize for BMI of 43.2 with multiple comorbidit ies. [id number] YAYA Trujillo [facility] [place] [address] [place] [address] 12/19/2023 14:56:57 12/19/2023 15:48:09 Body mass index 40+ - severely obese 905806610 Z68.41 BMI is 42.2 Obesity 500411844 E66.8 discussed healthy diet, exercise, controllin g carbohydra sid and added sugars in the diet Nodule of lung 696133865 R91.1 one 6mm nodule incidental ly picked up on lower lobe right side on CT a/p. will f/u with dedicated chest CT w/o contrast. Skin lesion 28316475 L98 .9 Refer to dermatolog y for lesion removal on face on left side abnormal macular lesion small in size Benign ess ential hypertension 8542577 I10 stable on amlodipine 5mg and losartan hctz 100/12.5mg daily. Hyperlipidemia 53490558 E78.5 on multiple agents for lipid management . Due for fasting lipids Hypothyroidism 54531865 E03.9 pt is on high dose synthroid supplement . due for updated labs Prediabetes 443164240 R7 3.03 underlying prediabete s present. 6.3% last labs, due for updated A1c Male hypogonadism 181487 06 E29.1 Testostero ne labs plus PSA due. Long-term drug therapy 661940244 Z79.899 Routine CBC and CMP are due Occult blo od detected in feces 29568723 R19.5 Patient has plans to see GI [...] to order it yet. Right flank pain 9070543 09 R10.9 Check ultrasound of the kidneys with right flank pain Decreased hearing 326209 001 H91.93 Refer to audiology for hearing evaluation [id number] YAYA Trujillo [facility] [place] [address] [place] [address] 06/19/2024 16:20:16 06/25/2024 15:37:34 Positive screening for depression on PHQ-9 (Patient Health Questionnaire 9) 4173666387 72016 Z13.31 Patient scored a 5 on screening today and a lot of this is related to some current marital problems that he is experienci ng Body mass index 30+ - obesity 500185644 Z68.37 BMI 37.9 Obesity 506863255 E66.9 discussed healthy diet, exercise, controllin g carbohydra sid and added sugars in the diet Benign ess ential hypertension 8814762 I10 Blood pressure is 140/80, borderline stability on amlodipine 5mg and losartan hctz 100/12.5mg daily. Patient is feeling a bit emotionall y stressed today and during exam Nodule of lung 006364708 R91.1 one 6mm nodule incidental ly picked up on lower lobe right side on CT a/p. will f/u with dedicated chest CT w/o contrast. Hypothyroidism 28944339 E03.9 pt is on high dose synthroid supplement . due for updated labs Hyperlipidemia 77301703 E78.5 on multiple agents for lipid management . Due for fasting lipids Prediabetes 939485353 R7 3.03 underlying prediabete s present. 6.3% last labs, due for updated A1c Male hypogonadism 071866 06 E29.1 Testostero ne labs plus PSA due. Long-term drug therapy 363137153 Z79.899 Routine CBC and CMP are due Adult heal th examination 235223562 Z00.01 annual wellness appt completed Mass of adam bcutaneous tissue of right forearm 1657691024 9583757 R22.31 Check ultrasound of the right forearm [...] ID Guarantor Name 06/10/2023 1 [place] [id number] Prosper Hernandez [id number] Prosper Hernandez Jr 12/19/2023 1 [place] [id number] Prosper Hernandez [id number] Prosper Hernandez Jr 06/19/2024 1 [place] [id number] Prosper Hernandez [id number] Prosper Hernandez Jr Notes Date Note [...] wegovy therapy. YAYA Trujillo Attn: Accounting,[address] [facility], [place], [address], [facility] 06/30/2023 12:48:06 4 text/html Generic HPI [...] Trujillo Attn: Accounting,[address], [place], [address], [facility] 12/30/2023 10:26:43 5 text/html Generic HPI TemplateReported bypatient.Notes:pt is taking testosterone 200mg every 2 weeks.HyperlipidemiaRepor jai bypatient.Notes:pt is stable on rosuvastatin 40mg, zetia 10mg daily and fenofibric acid 135mg daily.HypertensionReporte d bypatient.Notes:stable on losartan hctz 100/12.5mg daily and amlodipine 5mg dailyThyroidReported bypatient.Notes:pt is stable on synthroid 225mcg daily. due for labs YAYA Trujillo Attn: Accounting,[address], [place], [address], [facility] 07/04/2024 22:07:57
--- OUTSIDE RECORDS SUMMARY | 2024-07-20 18:06 | XMS_ITS | Continuity of Care Document ---
Author Organization [facility] Address [address] [place] [address] Phone Care Team Providers Care Machine Filler Name Role Phone Jaiden DE LUNA, Curt [...] Provider Providers Copied on Encounter [facility] [employer], [address] [address], [place], [place], [id number], [place] tel:[phone] [facility] No Information 3 O'Rod[address] Philippeoph er. [address] [facility] [address], [place], [place], [id number] , [place]. tel: [phone] Independent Medical Examination [facility], [address] [address], [place], [place], [id number], [place] tel:[phone] [facility] Cervical (chief complaint) Cervicalgia 3 O'Rod[address] Philippeoph er. [address] [address], [place], [place], [id number] , [place]. tel: [phone] Independent Medical Examination [facility], [address], [id number], [place] tel:[phone] [facility] left shoulder (chief complaint) Pain in left shoulder 2 Frantz Villeda. [address], [id number] , [place]. tel: [phone] Independent Medical Examination [facility], [address] [address], [place], [place], [id number], [place] tel:[phone] [facility] left shoulder (chief complaint) Pain in left shoulder 1 Frantz Villeda. [address] [address], [place], [place], [id number] , [place]. tel: [phone] [facility], [address], [id number], [place] tel:[phone] [facility] No Information 1 Frantz Villeda. [address], [id number] , [place]. tel: [phone] Family History Family Member Type Diagnosis Age [...] Diabetes Payers Payer name Insurance type Covered libertarian ID Authoriza tion(s) Yessi Persaud [id number] Social History Type Description Quantity Date Captured [...]
== END 2024-07-20 17:02 | disposition home or self-care (01) ==
PROVIDERS: PCP Physician Assistant; Visit Provider Physician Assistant
DX: R22.31 Localized swelling, mass and lump, right upper limb (principal); M79.89 Other specified soft tissue disorders
CPT/HCPCS: 76882

== ENCOUNTER 2024-09-27 05:38 | Emergency (ER) | payer BC, SELFPAY ==
[2024-09-27 05:39] VITALS: BP 134/85; PULSE 70; RESP 16; TEMP 36.6; O2SAT 99
[2024-09-27 06:15] VITALS: BP 148/84; PULSE 83; RESP 17; TEMP 36.5; O2SAT 99
[2024-09-27 06:20] VITALS: BP 148/84; PULSE 83; RESP 20; O2SAT 100; O2SAT 99
[2024-09-27 06:32] LABS: Strep Group A RT-PCR NOT DETECTED (Negative)
[2024-09-27 06:44] LABS: SARS-CoV-2 RNA PCR Negative (Negative)
[2024-09-27 07:17] VITALS: PULSE 76; RESP 20; O2SAT 99
--- NOTE | 2024-09-27 07:30 | ED.GENADULT ---
HPI - General Adult General Chief complaint: Upper Respiratory Infection Stated complaint: UVULA SWOLLEN Time Seen by Provider: 09/27/24 06:58 History of Present Illness HPI narrative: 41-year-old male presenting with sore throat. Patient found out his 33 years has been sleeping with his boss behind his back. He spent most of the weekend crying. This morning he developed soreness and hoarseness of his voice. He feels like his uvula is swollen. He has concern is having allergic reaction causes CT slept above in although he has never had allergic reaction to cat before. No other signs of allergic reaction such as hives wheezing nausea vomiting or diarrhea. Patient has not had any fevers or URI symptoms. No difficulty swallowing or breathing. Related Data Home Medications ?Medication ?Instructions ?Recorded ?Confirmed ?Last Taken ?Type amlodipine 5 mg tablet 5 mg PO DAILY 11/01/22 04/12/23 Unknown History ezetimibe 10 mg tablet 10 mg PO DAILY 11/01/22 04/12/23 Unknown History fenofibric acid (choline) 135 mg 135 mg PO DAILY 11/01/22 04/12/23 Unknown History capsule,delayed release levothyroxine 200 mcg tablet 200 mcg PO DAILY 11/01/22 04/12/23 Unknown History levothyroxine 50 mcg tablet 50 mcg PO DAILY 11/01/22 04/12/23 Unknown History losartan 100 1 tablet PO DAILY 11/01/22 04/12/23 Unknown History mg-hydrochlorothiazide 12.5 mg tablet rosuvastatin 40 mg tablet 40 mg PO DAILY 11/01/22 04/12/23 Unknown History testosterone cypionate 200 mg/mL 200 mg IM .Q2 Weeks 11/01/22 04/12/23 Unknown History intramuscular oil (Depo-Testosterone) Allergies Allergy/AdvReac Type Severity Reaction Status Date / Time No Known Allergies Allergy Verified 09/27/24 05:39 [facility] Past Medical History Medical History Anxiety Hyperlipidemia Hypertension Kidney stones Thyroid disorder Surgical History Surgical History H/O carpal tunnel repair (~2006) History of cholecystectomy (~2008) History of hernia repair (~1978) bilateral inguinal hernia repair History of nasal septoplasty (~2006) Hx of tonsillectomy (~1981) S/P excision of vocal cord nodule (~2006) Family History Family History Father Hypertension Mother Family history of arthritis Family history of colonic diverticulitis Other Cerebrovascular accident Diabetes mellitus Family history of alcoholism Family history of blood dyscrasia Family history of cardiovascular disease Family history of elevated blood lipids Family history of gout Family history of kidney disease Family history of malignant neoplasm Family history of osteoarthritis Social History Social History Social History: Caffeine-soda occasionally Smoking status: Former smoker Tobacco type: cigarettes Smoking end date: 04/01/00 Alcohol intake: current Drinks per week: 3 Alcohol use details: whiskey/mixed drinks Substance use: never Substance use type: does not use Lack of Transportation: No Lack of Food: Never True Current Housing: I Have Housing Concerned About Future Housing: No Difficulty Paying Gas/Electric Bills: No Difficulty Paying for Meds: No Currently Unemployed: No Education: High School Diploma/GED Difficulty w/ Childcare or Family Care: No Living arrangements: with family Occupation/Education: occupation Additional occupation/education comments: [employer] Gender identity (if verbalized by the patient): Male Spiritual care concerns: No Agree to blood products: Yes Exam Narrative: APPEARANCE: No apparent distress. Head: Focal exam of the posterior oropharynx revealed a normal appearing uvula with very mild erythema. No exudates. EYES: EOMI, NOSE: Atraumatic NECK: Trachea midline RESPIRATORY: No increased rate of breathing CTAB, speaking in full sentences without difficulty CARDIOVASCULAR: RRR, ABDOMINAL: Non-distended MUSCULOSKELETAl: No obvious deformities NEURO: Alert. Moving 4/4 extremities SKIN:: Warm, dry. Normal color PSYCHIATRIC: Normal affect Course Vital Signs Vital signs: Vital Signs Temperature 98 F 09/27/24 05:39 Pulse Rate 70 09/27/24 05:39 Respiratory Rate 16 09/27/24 05:39 Blood Pressure 134/85 09/27/24 05:39 Pulse Oximetry 99 09/27/24 05:39 Oxygen Delivery Room Air 09/27/24 05:39 Temperature 97.7 F 09/27/24 06:15 Pulse Rate 76 09/27/24 07:17 Respiratory Rate 20 09/27/24 07:17 Blood Pressure 148/84 H 09/27/24 06:20 Pulse Oximetry 99 09/27/24 07:17 Oxygen Delivery Room Air 09/27/24 06:20 Medical Decision Making MDM Narrative Medical decision making narrative: -Course: 49-year-old male presenting in significant emotional distress. He is now having throat irritation. Exam showed some very mild erythema of the uvula and posterior pharynx. No swelling of the uvula. No exudates or signs of tonsillitis. Strep and viral swabs were negative. He does not have any other URI symptoms. He does not have any allergic reaction symptoms. Wells possible is having pharyngitis or allergic reaction as this is more likely hoarseness from long weekend of crying/yelling. Will treated with dexamethasone which improved symptoms. Would want him to follow up with primary care physician the next 3-5 days to ensure his symptoms are getting better. Given return precautions for allergic reactions or URI symptoms. -DDX includes but is not limited to: Throat irritation from crying, pharyngitis, allergic reaction Vital Signs Vital Signs: Vital Signs Temperature 98 F 09/27/24 05:39 Pulse Rate 70 09/27/24 05:39 Respiratory Rate 16 09/27/24 05:39 Blood Pressure 134/85 09/27/24 05:39 Pulse Oximetry 99 09/27/24 05:39 Oxygen Delivery Room Air 09/27/24 05:39 Temperature 97.7 F 09/27/24 06:15 Pulse Rate 76 09/27/24 07:17 Respiratory Rate 20 09/27/24 07:17 Blood Pressure 148/84 H 09/27/24 06:20 Pulse Oximetry 99 09/27/24 07:17 Oxygen Delivery Room Air 09/27/24 06:20 Lab Data Labs: Lab Results 09/27/24 Range/Units 05:57 SARS-CoV-2 RNA (RT-PCR) Negative (Negative) Group A Strep (PCR) Not detected (Negative) Discharge Plan Discharge Clinical Impression: Hoarseness of voice, Globus sensation Patient Disposition: Home Condition: Stable Instructions: Antibiotic Form, Pharyngitis (ED) Additional Instructions: You were seen for throat irritation. I believe this is most likely due to irritation from crying/yelling. The steroid shot will cover any were lower to reaction. If you develop signs infection such as fevers, increased pain or swelling please follow-up with your primary care physician. If you develop any new worsening symptoms please return to the ED re-evaluation. Patient Language: Belarusian Prescriptions: No Action fenofibric acid (choline) 135 mg capsule,delayed release(DR/EC) 135 mg PO DAILY losartan-hydrochlorothiazide 100-12.5 mg tablet 1 tablet PO DAILY rosuvastatin 40 mg tablet 40 mg PO DAILY levothyroxine 200 mcg tablet 200 mcg PO DAILY levothyroxine 50 mcg tablet 50 mcg PO DAILY amlodipine 5 mg tablet 5 mg PO DAILY ezetimibe 10 mg tablet 10 mg PO DAILY testosterone cypionate [Depo-Testosterone] 200 mg/mL oil 200 mg IM .Q2 Weeks hydrocortisone acetate [Hemmorex-HC] 25 mg suppository 25 mg RECTAL BID Qty: 12 0RF lidocaine HCl-hydrocortison ac 2 %-2 % (7 gram) kit 1 applic RECTAL BID Qty: 1 0RF Follow-up/Referrals: Justin,BERLIN Heck [Primary Care Provider] -
[2024-09-27] MEDS: dexAMETHasone SOD PHOS INJ 10 MG/ML 1 ML VIAL IM (07:56)
[2024-09-27 07:59] VITALS: BP 146/80; PULSE 68; RESP 16; O2SAT 100
== END 2024-09-27 08:02 | disposition home or self-care (01) ==
LOC: ANHED 07:43
PROVIDERS: Student in an Organized Health Care Education/Training Program; Emergency Provider Emergency Medicine; PCP Physician Assistant
DX: R49.0 Dysphonia (principal); F45.8 Other somatoform disorders; Z20.822 Contact with and (suspected) exposure to COVID-19; F41.9 Anxiety disorder, unspecified; E78.5 Hyperlipidemia, unspecified; I10 Essential (primary) hypertension; Z87.442 Personal history of urinary calculi; E07.9 Disorder of thyroid, unspecified
CPT/HCPCS: 87635; 87651; 96372; 99283; J1100